=== PATIENT | male | born 1975 | race African-American/Black ===

== ENCOUNTER 2022-11-13 13:21 | Inpatient (IN) ==
[2022-11-13 14:32] LABS: Basophils # (auto) 0.05 K/uL (0-0.2); Basophils % (auto) 0.4 %; Eosinophils # (auto) 0.07 K/uL (0-0.50); Eosinophils % (auto) 0.5 %; Hematocrit (blood only) 38.5 % (42.0-52.0); Hemoglobin 13.2 g/dl (14.0-18.0); Immature Granulocytes # (auto) 0.19 K/uL (0.01-0.20); Immature Granulocytes % (auto) 1.5 %; Lymphocytes # (auto) 1.14 K/uL (1.2-3.4); Lymphocytes % (auto) 8.8 %; Mean Corpuscular Hgb Conc 34.3 g/dL (32.0-36.0); Mean Corpuscular Volume 90.4 fL (80.0-100.0); Mean Platelet Volume 9.8 fL (9.4-12.4); Monocytes # (auto) 0.78 K/uL (0.11-0.59); Neutrophils # (auto) 10.76 K/uL (1.40-6.50); Neutrophils % (auto) 82.8 %; Platelet Count 194 K/uL (130-400); RDW Standard Deviation 42.9 fL (36.4-46.3); Red Blood Count 4.26 M/uL (4.70-6.10); White Blood Count 12.99 K/ul (4.8-10.8)
[2022-11-13 14:46] LABS: Albumin Globulin Ratio 1.1 (0.9-2); Albumin Level 3.9 gm/dl (3.4-5.0); Bilirubin,Total 3.3 mg/dl (0.2-1.0); Calcium 8.6 mg/dl (8.6-10.3); Creatinine Clr Calc Pharmacy 75.3 ml/min; Est GFR (African American) 56.5 ml/min; Est GFR (Non-African American) 48.7 ml/min; Globulin 3.4 gm/dl (2.5-4.0); Potassium 3.2 mmol/L (3.5-5.1); Total Protein 7.3 gm/dl (6.0-8.3)
[2022-11-13] MEDS ORDERED: CEFEPIME 2,000 MG/20 ML VIAL IV STA (15:17)
[2022-11-13] MEDS ORDERED: SODIUM CHLORIDE 0.9% 1000ML 1,000 ML IV ONE ×2 (15:17→17:12)
--- NOTE | 2022-11-13 15:35 | Emergency Department Note ---
Impression & Plan Sepsis, Pneumonia, Rigors, Dysuria, Leukocytosis, Elevated liver enzymes, Hypomagnesemia ED Provider Note NAME: JANEE [id number] LINH AGE: 47 SEX: M : 1975 ARRIVES VIA: Ambulance INFORMANT: [Patient] ED PROVIDER(S): [Orion Barrientos MD] CHIEF COMPLAINT: Fever HISTORY OF PRESENT ILLNESS: The patient is a 47-year-old male who has had 3 or 5 days of weakness, fatigue, some dizziness. He has had some difficulty with his urination, some burning with urination, some occasional diarrhea. Today, he had a temperature of 102.5. He was given Tylenol and sent to the ED for evaluation. Patient states that he feels dizzy when he stands. His flanks are sore. No cough or congestion or respiratory complaints. He has not had any vomiting. No real abdominal pain. No history of previous UTI. PMHx/PSHx: See Below SOCIAL HISTORY: See Below. PHYSICAL EXAM: GENERAL: Patient is in no acute distress. HEENT: No acute trauma, normocephalic atraumatic, mucous membranes moist, no nasal congestion. NECK: No stridor, no adenopathy, no meningismus, trachea is midline. LUNGS: Occasional crackles heard at the right lower lung, no respiratory distress, no wheezing. HEART: Mildly tachycardic, regular rhythm, very subtle systolic murmur ABDOMEN: Soft, nontender, bowel sounds positive, no peritonitis. EXTREMITIES: No cyanosis or edema, full range of motion of all the joints without pain or difficulty, no signs for acute trauma. NEUROLOGIC: Oriented x 3, no acute motor or sensory deficits, no focal weakness. SKIN: No rash, no jaundice, no diaphoresis. Back: No real flank discomfort to percussion. DIFFERENTIAL DIAGNOSIS: Bacteremia or sepsis, hydronephrosis, UTI, pyelonephritis, urinary retention, renal failure, pneumonia, among others. EMERGENCY DEPARTMENT COURSE/PROCEDURES: Prior/Outside records reviewed: [facility] documentation. Critical Care Note: I have personally spent 43 minutes of critical care time in the direct management of this patient. This includes bedside care, interpretation of diagnostic studies, and testing, discussion with consultants, patient, and family members, and other required patient management activities. This 43 minutes is in excess of all separately billable procedures. MEDICAL DECISION MAKING: There is a mild leukocytosis, this would be consistent with infection. A very mild anemia was seen. There was a normal platelet count. Sodium and potassium were both slightly low. The creatinine was elevated at 1.63, this could be consistent with some dehydration or mild acute kidney injury. Lactic acid level was elevated consistent with infection and/or early sepsis. Magnesium level was low at 1.4. There were some liver enzyme elevations, the bilirubin was 3.3. Urinalysis showed contamination, no obvious infection. Lyme disease testing was negative. COVID test was negative. Chest film shows a right lower lung pne umonia per my review. Abdominal and pelvis CT shows the same right lower lung pneumonia. There was no urinary obstruction or acute surgical process per CT imaging. On exam, the patient was febrile, tachycardic. He developed rigors while here in the ED. The patient was aggressively managed given his presentation. He received IV saline for hydration, 2 L. He was given IV magnesium, oral ibuprofen, IV cefepime and IV Tylenol. I talked the patient about his findings, I discussed his findings with the guards. I did speak with case management, given his findings and presentation hospitalization is indicated. The on-call hospitalist was consulted. DISPOSITION: Patient's presentation and findings warrant a hospital stay. Past Med/Surg History Medical History Mood disorder Surgical History (Updated 11/13/22 @ 18:03 by TANYA Armendariz) No significant past surgical history Social History Smoking Status: Former smoker Preferred Language: Ecuadorean Feels Safe at Home: Yes Allergies Allergies Allergy/AdvReac Type Severity Reaction Status Date / Time No Known Allergies Allergy Unverified 11/13/22 17:27 Home Meds Home Medications Medication Instructions Recorded Confirmed acetaminophen 500 mg tablet 1,000 mg PO DAILY 11/13/22 11/13/22 (Tylenol Extra Strength) acetaminophen 500 mg tablet 1,000 mg PO TID PRN Pain 11/13/22 11/13/22 (Tylenol Extra Strength) ceftriaxone 1 gram solution for 2 g IM DAILY 11/13/22 11/13/22 injection levofloxacin 750 mg tablet 750 mg PO .DAILY DIRECTED 11/13/22 11/13/22 olanzapine 5 mg tablet 5 mg PO HS 11/13/22 11/13/22 sodium chloride 0.9 % 100 ml IV .HOUR 11/13/22 11/13/22 trazodone 100 mg tablet 100 mg PO HS 11/13/22 11/13/22 Results & Data (ED) Vital Signs Vital Signs - 24 hr 11/13/22 13:33 11/13/22 15:41 11/13/22 16:49 Temperature 37.5 C 39.5 C H Temperature Source Oral Oral Pulse Rate 108 H Pulse Rate [Apical] 104 H Respiratory Rate 20 18 Respiratory Effort / Characteristics Non-Labored Blood Pressure 126/74 Blood Pressure [Right Arm] 131/112 H Blood Pressure Mean 91 Blood Pressure Mean [Right Arm] 118 Pulse Oximetry 95 94 Oxygen Delivery Method Room Air Room Air Sepsis Recent Fever Within 48 Hours Yes Sepsis New/Unexplained Change in Mental Status N/A Sepsis Action Taken by Nursing No Action Required 11/13/22 17:15 11/13/22 17:35 11/13/22 17:52 Temperature 39.0 C H Temperature Source Oral Pulse Rate 112 H Pulse Rate [Apical] 116 H Respiratory Rate 24 Respiratory Effort / Characteristics Blood Pressure Blood Pressure [Right Arm] 130/106 H Blood Pressure Mean Blood Pressure Mean [Right Arm] 114 Pulse Oximetry 95 Oxygen Delivery Method Sepsis Recent Fever Within 48 Hours Sepsis New/Unexplained Change in Mental Status Sepsis Action Taken by Correction Medications Current Medication List: was personally reviewed by me Laboratory Data Attestation: I reviewed the patient's lab results. 11/13/22 14:11 11/13/22 14:11 Lab Results 11/13/22 11/13/22 11/13/22 Range/Units 14:11 14:11 14:12 WBC 12.99 H (4.8-10.8) K/ul RBC 4.26 L (4.70-6.10) M/uL Hgb 13.2 L (14.0-18.0) g/dl Hct 38.5 L (42.0-52.0) % MCV 90.4 (80.0-100.0) fL MCH 31.0 (25.0-34.0) pg MCHC 34.3 (32.0-36.0) g/dL RDW Std Deviation 42.9 (36.4-46.3) fL RDW Coeff of Sandeep 13.0 (11.5-14.5) % Plt Count 194 (130-400) K/uL MPV 9.8 (9.4-12.4) fL Immature Gran % (Auto) 1.5 % Neut % (Auto) 82.8 % Lymph % (Auto) 8.8 % [place] % (Auto) 6.0 % Eos % (Auto) 0.5 % Baso % (Auto) 0.4 % Neut # (Auto) 10.76 H (1.40-6.50) K/uL Lymph # (Auto) 1.14 L (1.2-3.4) K/uL [place] # (Auto) 0.78 H (0.11-0.59) K/uL Eos # (Auto) 0.07 (0-0.50) K/uL Baso # (Auto) 0.05 (0-0.2) K/uL Immature Gran # (Auto) 0.19 (0.01-0.20) K/uL Sodium 133 L (136-145) mmol/L Potassium 3.2 L (3.5-5.1) mmol/L Chloride 99 (98-107) mmol/L Carbon Dioxide 21 (21-32) mmol/L Anion Gap 13 H (3-11) BUN 18 (6-23) mg/dl Creatinine 1.63 H (0.6-1.4) mg/dl Est Cr Clr Drug Dosing 75.3 ml/min Est GFR ( Amer) 56.5 ml/min Est GFR (Non-Af Amer) 48.7 ml/min BUN/Creatinine Ratio 11.0 (10-20) Glucose 122 H (70-99(Fasting)) mg/dl Lactate (0.4-2.0) mmol/L Calcium 8.6 (8.6-10.3) mg/dl Magnesium 1.4 L (1.7-2.4) mg/dl Total Bilirubin 3.3 H (0.2-1.0) mg/dl AST 113 H (13-39) U/L ALT 99 H (7-52) U/L Alkaline Phosphatase 55 (34-104) U/L Total Protein 7.3 (6.0-8.3) gm/dl Albumin 3.9 (3.4-5.0) gm/dl Globulin 3.4 (2.5-4.0) gm/dl Albumin/Globulin Ratio 1.1 (0.9-2) Urine Color Urine Appearance (Clear) Urine pH (4.5-7.5) Ur Specific [place] (1.000-1.030) Urine Protein (Negative) Urine Glucose (UA) (Negative) Urine Ketones (Negative) Urine Blood (Negative) Urine Nitrite (Negative) Urine Bilirubin (Negative) Urine Urobilinogen (Negative) Ur Leukocyte Esterase (Negative) Urine WBC (Auto) (0-5) /hpf Urine RBC (Auto) (0-4) /hpf U Hyaline Cast (Auto) (0-5) /lpf U Epithel Cells (Auto) (0-5) /lpf Urine Bacteria (Auto) (Negative) Ur Renal Epithelial Cell (0-5) /lpf Granular Casts (0) /lpf Urine Yeast Lyme Disease IgG Ab Negative (Negative) Lyme Disease IgM Ab Negative (Negative) SARS-CoV-2, RNA, NAAT (NEGATIVE) 11/13/22 11/13/22 11/13/22 Range/Units 15:28 15:55 16:55 WBC (4.8-10.8) K/ul RBC (4.70-6.10) M/uL Hgb (14.0-18.0) g/dl Hct (42.0-52.0) % MCV (80.0-100.0) fL MCH (25.0-34.0) pg MCHC (32.0-36.0) g/dL RDW Std Deviation (36.4-46.3) fL RDW Coeff of Sandeep (11.5-14.5) % Plt Count (130-400) K/uL MPV (9.4-12.4) fL Immature Gran % (Auto) % Neut % (Auto) % Lymph % (Auto) % [place] % (Auto) % Eos % (Auto) % Baso % (Auto) % Neut # (Auto) (1.40-6.50) K/uL Lymph # (Auto) (1.2-3.4) K/uL [place] # (Auto) (0.11-0.59) K/uL Eos # (Auto) (0-0.50) K/uL Baso # (Auto) (0-0.2) K/uL Immature Gran # (Auto) (0.01-0.20) K/uL Sodium (136-145) mmol/L Potassium (3.5-5.1) mmol/L Chloride (98-107) mmol/L Carbon Dioxide (21-32) mmol/L Anion Gap (3-11) BUN (6-23) mg/dl Creatinine (0.6-1.4) mg/dl Est Cr Clr Drug Dosing ml/min Est GFR ( Amer) ml/min Est GFR (Non-Af Amer) ml/min BUN/Creatinine Ratio (10-20) Glucose (70-99(Fasting)) mg/dl Lactate 2.3 H* (0.4-2.0) mmol/L Calcium (8.6-10.3) mg/dl Magnesium (1.7-2.4) mg/dl Total Bilirubin (0.2-1.0) mg/dl AST (13-39) U/L ALT (7-52) U/L Alkaline Phosphatase (34-104) U/L Total Protein (6.0-8.3) gm/dl Albumin (3.4-5.0) gm/dl Globulin (2.5-4.0) gm/dl Albumin/Globulin Ratio (0.9-2) Urine Color [place] Urine Appearance Cloudy A (Clear) Urine pH 5.5 (4.5-7.5) Ur Specific [place] 1.030 (1.000-1.030) Urine Protein 2+ H (Negative) Urine Glucose (UA) Negative (Negative) Urine Ketones 1+ H (Negative) Urine Blood 3+ H (Negative) Urine Nitrite Positive A (Negative) Urine Bilirubin 2+ H (Negative) Urine Urobilinogen Negative (Negative) Ur Leukocyte Esterase Trace H (Negative) Urine WBC (Auto) 5-10 H (0-5) /hpf Urine RBC (Auto) 0-4 (0-4) /hpf U Hyaline Cast (Auto) 1-5 (0-5) /lpf U Epithel Cells (Auto) >30 H (0-5) /lpf Urine Bacteria (Auto) Negative (Negative) Ur Renal Epithelial Cell 0-5 (0-5) /lpf Granular Casts 1-5 H (0) /lpf Urine Yeast Not Reportable Lyme Disease IgG Ab (Negative) Lyme Disease IgM Ab (Negative) SARS-CoV-2, RNA, NAAT NEGATIVE (NEGATIVE) Administered Medications Magnesium Sulfate/Dextrose (Magnesium Sulfate / D5w) 1 gm in 100 mls @ 100 mls/hr IV Q1H LARA Stop: 11/13/22 18:09 Last Admin: 11/13/22 17:46 Dose: 100 mls/hr Documented By: Infusion: 11/13/22 17:46 Dose: 100 mls/hr Documented By: Admin: 11/13/22 16:46 Dose: 100 mls/hr Documented By: ANDRES Sodium Chloride (Nss 1000ml) 1,000 mls @ 999 mls/hr IV .Q1H1M ONE Stop: 11/13/22 18:12 Last Admin: 11/13/22 17:46 Dose: 999 mls/hr Documented By: ANDRES Discontinued Medications Sodium Chloride (Nss 1000ml) 1,000 mls @ 999 mls/hr IV .Q1H1M ONE Stop: 11/13/22 16:17 Last Admin: 11/13/22 15:39 Dose: 999 mls/hr Documented By: MOUSTAPHA Cefepime HCl (Maxipime) 2,000 mg in 20 mls @ 5 mls/min IV NOW STA; Protocol Stop: 11/13/22 15:20 Last Admin: 11/13/22 16:22 Dose: 5 mls/min Documented By: ANDRES Acetaminophen (Ofirmev) 1,000 mg in 100 mls @ 400 mls/hr IV NOW STA Stop: 11/13/22 17:30 Last Admin: 11/13/22 17:46 Dose: 400 mls/hr Documented By: ANDRES Ibuprofen (Ibuprofen 800 Mg Tab) 800 mg PO NOW STA Stop: 11/13/22 16:51 Last Admin: 11/13/22 17:11 Dose: 800 mg Documented By: ANDRES Potassium Chloride (Potassium Chloride Crtab 20 Meq Tabcr) 40 meq PO NOW STA Stop: 11/13/22 17:32 Last Admin: 11/13/22 17:46 Dose: 40 meq Documented By: ANDRES Imaging Data Radiologist's Impression: Abdomen/Pelvis CT 11/13/22 15:17 CT SCAN OF THE ABDOMEN AND PELVIS WITHOUT IV CONTRAST CLINICAL HISTORY: Back pain. COMPARISON STUDY: No priors. TECHNIQUE: CT scan of the abdomen and pelvis is performed from the lung bases to the proximal femora. Images are reviewed in the axial, sagittal, and coronal planes. IV contrast was not administered for this examination. A dose lowering technique was utilized adhering to the principles of ALARA. CT DOSE: 729.68 mGy.cm FINDINGS: Lung bases: The heart is normal in size noting trace pericardial effusion. Right lower lobe consolidation is typical for pneumonia. The left lung base is clear. No pleural effusion is identified. Liver: The unenhanced liver is normal in size, contour, and attenuation. There is no intrahepatic biliary ductal dilatation. Gallbladder: Unremarkable. Spleen: Normal in size and attenuation. Pancreas: Unremarkable. Adrenal glands: Unremarkable. Kidneys: The unenhanced kidneys are normal in size and without hydronephrosis. No renal calculi are identified and no ureteral stone is seen. There is no evidence of contour deforming renal mass lesion. Abdominal vasculature: The abdominal aorta is normal in course and caliber. Bowel: There is no bowel obstruction. The appendix is well-visualized and normal. Peritoneum: There is no intraperitoneal free air or abdominal ascites. There is a fat-containing umbilical hernia. Lymphadenopathy: None. Pelvic viscera: The bladder, prostate, and seminal vesicles are normal as visualized. Skeletal structures: No lytic or blastic lesions are seen. 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 IMPRESSION: 1. No acute infectious or inflammatory findings are identified in the abdomen or pelvis. 2. Right basilar consolidation is typical for pneumonia. Clinical correlation will be required and radiographic follow-up to resolution is recommended 3. Avascular necrosis of the femoral heads. 4. Additional findings as above. ACT 112: Negative or not required by law. Electronically signed by: Orion Perez M.D. 11/13/2022 5:09 PM Chest X-Ray 11/13/22 15:35 SINGLE VIEW CHEST CLINICAL HISTORY: Fever. FINDINGS: An AP, portable, upright chest radiograph is obtained. No prior studies are available for comparison at the time of dictation. The examination is degraded by portable technique and apical lordotic positioning. The cardiomediastinal silhouette is unremarkable. There are right basilar opacities. The left lung appears clear. No large pleural effusion or Pneumothorax is seen. The bony thorax is grossly intact. IMPRESSION: Right basilar opacities could represent atelectasis versus a mild pneumonitis. Clinical correlation will be required. Radiographic follow-up to resolution is recommended. ACT 112: Negative or not required by law. Electronically signed by: Orion Perez M.D. 11/13/2022 4:12 PM Discharge Plan Visit Data Chief Complaint: Fever Stated Complaint: FEVER, DIZZINESS, ED Provider: Orion Barrientos Discharge Problem: Sepsis, Pneumonia, Rigors, Dysuria, Leukocytosis, Elevated liver enzymes, Hypomagnesemia Patient Disposition: Admitted As Inpatient Condition: Fair Forms Stand Alone Forms: [facility] Prescriptions Prescriptions: No Action olanzapine 5 mg Tablet 5 mg PO HS acetaminophen [Tylenol Extra Strength] 500 mg Tablet 1,000 mg PO TID PRN (Reason: Pain) acetaminophen [Tylenol Extra Strength] 500 mg Tablet 1,000 mg PO DAILY ceftriaxone 1 gram Recon Soln 2 g IM DAILY Rx Instructions: Stop date 11/14/2022 sodium chloride 0.9 % [Normal Saline] Solution 100 ml IV .HOUR Rx Instructions: 0.9% NSS Soln, 1,000 ml daily. Stop date 11/14/2022 trazodone 100 mg Tablet 100 mg PO HS levofloxacin 750 mg Tablet 750 mg PO .DAILY DIRECTED Rx Instructions: Start 11/14/2022, End 11/18/2022 Referrals Referrals: [facility] [Primary Care Provider] -
[2022-11-13 15:43] LABS: Magnesium 1.4 mg/dl (1.7-2.4)
[2022-11-13 16:13] LABS: Lyme Ab IgG w/WB Rflx Negative (Negative); Lyme Ab IgM w/WB Rflx Negative (Negative)
--- NOTE | 2022-11-13 16:13 | XRay Report ---
SINGLE VIEW CHEST CLINICAL HISTORY: Fever. FINDINGS: An AP, portable, upright chest radiograph is obtained. No prior studies are available for c omparison at the time of dictation. The examination is degraded by portable technique and apical lord otic positioning. The cardiomediastinal silhouette is unremarkable. There are right basilar opacities . The left lung appears clear. No large pleural effusion or Pneumothorax is seen. The bony thorax is grossly intact. IMPRESSION: Right basilar opacities could represent atelectasis versus a mild pneumonitis. Clinical c orrelation will be required. Radiographic follow-up to resolution is recommended. ACT 112: Negative or not required by law. Electronically signed by: Orion Perez M.D. 11/13/2022 4:12 PM
[2022-11-13] MEDS: MAGNESIUM SULFATE / D5W 1 GM/100 ML BAG IV SCH ×2 (16:46→17:46)
[2022-11-13] MEDS ORDERED: IBUPROFEN 800 MG TAB PO STA (16:50)
--- NOTE | 2022-11-13 17:11 | CT Scan Report ---
CT SCAN OF THE ABDOMEN AND PELVIS WITHOUT IV CONTRAST CLINICAL HISTORY: Back pain. COMPARISON STUDY: No priors. TECHNIQUE: CT scan of the abdomen and pelvis is performed from the lung bases to the proximal femora. Images are reviewed in the axial, sagittal, and coronal planes. IV contrast was not administered for this examination. A dose lowering technique was utilized adhering to the principles of ALARA. CT DOSE: 729.68 mGy.cm FINDINGS: Lung bases: The heart is normal in size noting trace pericardial effusion. Right lower lobe consolida tion is typical for pneumonia. The left lung base is clear. No pleural effusion is identified. Liver: The unenhanced liver is normal in size, contour, and attenuation. There is no intrahepatic leana iary ductal dilatation. Gallbladder: Unremarkable. Spleen: Normal in size and attenuation. Pancreas: Unremarkable. Adrenal glands: Unremarkable. Kidneys: The unenhanced kidneys are normal in size and without hydronephrosis. No renal calculi are i dentified and no ureteral stone is seen. There is no evidence of contour deforming renal mass lesion. Abdominal vasculature: The abdominal aorta is normal in course and caliber. Bowel: There is no bowel obstruction. The appendix is well-visualized and normal. Peritoneum: There is no intraperitoneal free air or abdominal ascites. There is a fat-containing umbi lical hernia. Lymphadenopathy: None. Pelvic viscera: The bladder, prostate, and seminal vesicles are normal as visualized. Skeletal structures: No lytic or blastic lesions are seen. 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 IMPRESSION: 1. No acute infectious or inflammatory findings are identified in the abdomen or pelvis. 2. Right basilar consolidation is typical for pneumonia. Clinical correlation will be required and ra diographic follow-up to resolution is recommended 3. Avascular necrosis of the femoral heads. 4. Additional findings as above. ACT 112: Negative or not required by law. Electronically signed by: Orion Perez M.D. 11/13/2022 5:09 PM
[2022-11-13] MEDS ORDERED: ACETAMINOPHEN 1,000 MG/100 ML VIAL IV STA (17:16)
[2022-11-13 17:21] LABS: Appearance Urine Cloudy (Clear); Bacteria Urine Automated Negative (Negative); Blood Urine 3+ (Negative); Color Urine Orange; Epithelial Cell Urine Auto >30 /lpf (0-5); Glucose Urine UA Negative (Negative); Ketones Urine 1+ (Negative); Leukocyte Esterase Urine Trace (Negative); Nitrite Urine Positive (Negative); Protein Urine 2+ (Negative); Urobilinogen Urine Negative (Negative); pH Urine 5.5 (4.5-7.5)
[2022-11-13 17:30] LABS: Bilirubin Urine 2+ (Negative)
[2022-11-13] MEDS ORDERED: POTASSIUM CHLORIDE CRTAB 20 MEQ TABCR PO STA (17:31)
[2022-11-13 17:41] LABS: RBC Urine Automated 0-4 /hpf (0-4)
[2022-11-13 17:43] LABS: Renal Epithelial Cells Urine 0-5 /lpf (0-5)
--- NOTE | 2022-11-13 18:04 | History & Physical Report ---
Date of Service November 13, 2022 Assessment & Plan (1) Severe sepsis: (2) UTI (urinary tract infection): (3) Pneumonia: Plan: Admit to telemetry Patient presenting from [facility] for evaluation of fever, urinary symptoms, weakness, dizziness. In the ED, febrile 39.5, tachycardic 110's, WBC 12.9 K, lactate 2.3. BP stable. CT ABD/pelvis negative for acute abdominal findings however noted right basilar consolidation -- ?? Aspiration due to vomiting UA suggest possible UTI S/p cefepime in the ED, will continue with IV Zosyn to provide anaerobic coverage for possible aspiration and will add doxycycline for atypical coverage Check MRSA nasal swab and if positive will add Vanco Trend lactate Follow blood, urine, sputum cultures Urine for Legionella Pulmonary toilet with nebs, Mucinex, incentive spirometer, flutter valve (4) Elevated LFTs: Plan: T. bili 3.3, AST 113, ALT 99, alk phos 55 Patient denies history of liver disease ?? Shock liver due to sepsis Check hepatitis panel Continue to trend, if not improving consider RUQ US (5) MARTÍN (acute kidney injury): Plan: Creatinine 1.6, unknown baseline however patient denies history of kidney disease Likely MARTÍN due to sepsis IVF, follow renal functions (6) Acute electrocardiogram changes: Plan: EKG shows T wave inversion in the lateral leads No reports of chest pain May be due to electrolyte abnormality and/or tachycardia Check troponin (7) Hypokalemia: (8) Hypomagnesemia: Plan: K+ 3.2, Mg +1.4 Replace, follow electrolytes (9) Diarrhea: Plan: Check stool studies (10) Mood disorder: Plan: Continue olanzapine and trazodone DVT PROPHYLAXIS SCDs Patient seen in collaboration with Dr. Danni Cruz spent a total of 75 minutes coordinating, documenting, and providing care for this patient excluding time spent in the performance of separately billed services. This included personally reviewing all current laboratories and imaging studies, medication reconciliation, outpatient chart review, and discussion with specialists. History of Present Illness Chief Complaint: Fever, weakness, urinary symptoms Primary Care Provider: [facility] History obtained from patient and review of records sent from [facility]. 47-year-old male inmate from [facility] with PMH mood disorder and other problems listed below who presents to the ED for evaluation of fever, weakness, urinary symptoms. Patient reports he started to get sick about 3 days ago. He reports urinary frequency and urgency, nausea with 2 episodes of vomiting, diarrhea, dry mouth, lightheadedness, dizziness. Patient also reports chills and rigors. [facility] was referred to the ED for further evaluation. Patient denies cough and sputum production. No chest pain or shortness of breath. In the ED, patient was febrile 39.5, tachycardic, WBC 12.9 K, lactate 2.3. BP stable. UA suggestive of possible UTI. CT ABD/pelvis unremarkable for acute abdominal findings however does note right basilar consolidation. Patient was given IV Tylenol, IV cefepime, ibuprofen, magnesium replacement, IVF. Allergies Allergy/AdvReac Type Severity Reaction Status Date / Time No Known Allergies Allergy Unverified 11/13/22 17:27 Home Medications Medication Instructions Recorded Confirmed Type olanzapine 5 mg tablet 5 mg PO HS 11/13/22 11/13/22 History trazodone 100 mg tablet 100 mg PO HS 11/13/22 11/13/22 History Past Med/Surg History Medical History Mood disorder Surgical History No significant past surgical history Family History (Updated 11/13/22 @ 18:18 by TANYA Armendariz) Father Diabetes Social History Smoking Status: Former smoker Hx Alcohol Use: No Hx Substance Use: No Preferred Language: Spanish Communication Ability: Effective 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 Beliefs That Will Affect Care: None Current Living Situation: Other Current Living Situation Comment: [facility] Feels Safe at Home: Yes Safety Concerns: Feels Safe At This Time Assistive Devices: None Review of Systems Review of Systems: ROS per HPI, all other systems reviewed and negative Physical Exam Constitutional: WD/WN, vitals as above + ill appearing; no acute distress Eyes: PERRL, conjunctivae normal, anicteric sclerae ENMT: external ear and nose normal, oropharynx normal Respiratory: normal respiratory effort; no respiratory distress Auscultation: + rales (Right base) Cardiovascular: Rate/Rhythm: regular rhythm and + tachycardic Vessels: normal peripheral pulses Extremities: no edema Gastrointestinal (Abdomen): Inspection/Auscultation: + abdomen distended and normal bowel sounds Percussion/Palpation: abdomen soft; abdomen nontender and no hepatosplenomegaly Musculoskeletal: no cyanosis or clubbing, extremities motor strength 5/5 Skin: no rashes, warm and dry Neurologic: PERRL, EOMI, accommodation nl, no face palsy, no dysarthria Psychiatric: A+Ox3, euthymic affect Results & Data Results & Data Vital Signs (Past 12 Hours) Vital Signs Temp Pulse Pulse Resp BP BP Pulse Ox 11/13/22 17:52 39.0 C H 11/13/22 17:35 112 H 11/13/22 17:15 116 H 24 130/106 H 95 11/13/22 16:49 39.5 C H 11/13/22 15:41 104 H 18 131/112 H 94 11/13/22 13:33 37.5 C 108 H 20 126/74 95 O2 Del Method 11/13/22 17:52 11/13/22 17:35 11/13/22 17:15 11/13/22 16:49 11/13/22 15:41 Room Air 11/13/22 13:33 Room Air Laboratory Results Short CBC 11/13/22 Range/Units 14:11 WBC 12.99 H (4.8-10.8) K/ul Hgb 13.2 L (14.0-18.0) g/dl Hct 38.5 L (42.0-52.0) % Plt Count 194 (130-400) K/uL BMP 11/13/22 14:11 Sodium 133 L Potassium 3.2 L Chloride 99 Carbon Dioxide 21 BUN 18 Creatinine 1.63 H Glucose 122 H Calcium 8.6 Liver Function 11/13/22 Range/Units 14:11 Total Bilirubin 3.3 H (0.2-1.0) mg/dl AST 113 H (13-39) U/L ALT 99 H (7-52) U/L Alkaline Phosphatase 55 (34-104) U/L Albumin 3.9 (3.4-5.0) gm/dl Urine 11/13/22 Range/Units 16:55 Urine Color [place] Urine Appearance Cloudy A (Clear) Urine pH 5.5 (4.5-7.5) Ur Specific [place] 1.030 (1.000-1.030) Urine Protein 2+ H (Negative) Urine Glucose (UA) Negative (Negative) Diagnostic Findings Abdomen/Pelvis CT 11/13/22 15:17 CT SCAN OF THE ABDOMEN AND PELVIS WITHOUT IV CONTRAST CLINICAL HISTORY: Back pain. COMPARISON STUDY: No priors. TECHNIQUE: CT scan of the abdomen and pelvis is performed from the lung bases to the proximal femora. Images are reviewed in the axial, sagittal, and coronal planes. IV contrast was not administered for this examination. A dose lowering technique was utilized adhering to the principles of ALARA. CT DOSE: 729.68 mGy.cm FINDINGS: Lung bases: The heart is normal in size noting trace pericardial effusion. Right lower lobe consolidation is typical for pneumonia. The left lung base is clear. No pleural effusion is identified. Liver: The unenhanced liver is normal in size, contour, and attenuation. There is no intrahepatic biliary ductal dilatation. Gallbladder: Unremarkable. Spleen: Normal in size and attenuation. Pancreas: Unremarkable. Adrenal glands: Unremarkable. Kidneys: The unenhanced kidneys are normal in size and without hydronephrosis. No renal calculi are identified and no ureteral stone is seen. There is no evidence of contour deforming renal mass lesion. Abdominal vasculature: The abdominal aorta is normal in course and caliber. Bowel: There is no bowel obstruction. The appendix is well-visualized and normal. Peritoneum: There is no intraperitoneal free air or abdominal ascites. There is a fat-containing umbilical hernia. Lymphadenopathy: None. Pelvic viscera: The bladder, prostate, and seminal vesicles are normal as visualized. Skeletal structures: No lytic or blastic lesions are seen. 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 IMPRESSION: 1. No acute infectious or inflammatory findings are identified in the abdomen or pelvis. 2. Right basilar consolidation is typical for pneumonia. Clinical correlation will be required and radiographic follow-up to resolution is recommended 3. Avascular necrosis of the femoral heads. 4. Additional findings as above. ACT 112: Negative or not required by law. Electronically signed by: Orion Perez M.D. 11/13/2022 5:09 PM Chest X-Ray 11/13/22 15:35 SINGLE VIEW CHEST CLINICAL HISTORY: Fever. FINDINGS: An AP, portable, upright chest radiograph is obtained. No prior studies are available for comparison at the time of dictation. The examination is degraded by portable technique and apical lordotic positioning. The cardiomediastinal silhouette is unremarkable. There are right basilar opacities. The left lung appears clear. No large pleural effusion or Pneumothorax is seen. The bony thorax is grossly intact. IMPRESSION: Right basilar opacities could represent atelectasis versus a mild pneumonitis. Clinical correlation will be required. Radiographic follow-up to resolution is recommended. ACT 112: Negative or not required by law. Electronically signed by: Orion Perez M.D. 11/13/2022 4:12 PM Code Status & VTE Plan Code Status Patient is a full code as per my discussion with him. VTE Prophylaxis Plan VTE Prophylaxis will be ordered: Yes Supervising Physician Co-Signing Physician Notes Pt seen and examined by me, care coordinated w/ L. TANYA Yeh, pls refer to her note above for further detail. 47 yo M (inmate from [facility]) with hx of mood disorder who presents for evaluation of fever, weakness. Patient reports he started to get sick about 3 days ago when he had nausea, vomiting and diarrhea. [facility] was [facility] to the ED for further evaluation. Patient denies cough and sputum production. No chest pain or shortness of breath. In the ED, patient was febrile 39.5 C, tachycardic, WBC 12.9 K, lactate 2.3. BP stable. CT ABD/pelvis unremarkable for acute abdominal findings however does note right basilar consolidation. Patient was given IV Tylenol, IV cefepime, ibuprofen, magnesium replacement, IVF. Patient is currently laying in bed, in no acute distress, however ill-appearing. Blood pressure is good, however patient is febrile, and tachycardic. Denies any pain or discomfort. Denies any cough. Continues to have a poor appetite, and diarrhea. He says he did not eat or drink anything today. However denies any abdominal pain. He is awake alert oriented answering appropriately. Lungs are fairly clear, some rhonchi at right base. Tachycardic. Abdomen obese soft, nontender to palpation, positive bowel sounds. No lower extremity edema. No rash. Skin is warm and dry. Blood cultures ordered. Urine pending. Sputum culture also ordered. Bio fire ordered. Stool PCR ordered. Legionella antigen ordered. Started on IV broad- spectrum antibiotics in ED. IV fluids also started in ED. We will continue with IV Zosyn and azithromycin. Continue IV fluids. Imaging concerning for right lower lobe pneumonia. Guaifenesin, flutter valve, spirometer ordered. Patient is currently breathing on room air, comfortably. Continue to closely monitor. MD Danni
[2022-11-13] MEDS ORDERED: ONDANSETRON INJ 2 MG/ML 2 ML VIAL IV PRN (19:27)
[2022-11-13] MEDS ORDERED: ALBUT/IPRATROP 3MG/0.5MG NEB 3 ML VIAL NEB PRN (19:27)
[2022-11-13] MEDS ORDERED: ACETAMINOPHEN 325 MG TAB PO PRN (19:27)
[2022-11-13 19:34] LABS: Troponin I High Sensitivity 52.9 pg/ml (0-20)
[2022-11-13] MEDS ORDERED: PIPERACILLIN/TAZOBACTAM 4.5 GM (over 30 mins) IV ONE (19:45)
[2022-11-13] MEDS: SODIUM CHLORIDE 0.9% 1000ML 1,000 ML IV SCH (19:50)
[2022-11-13] MEDS: guaiFENesin 600 MG TABCR PO SCH (20:33)
[2022-11-13] MEDS: OLANZapine 5 MG TABLET PO SCH (20:33)
[2022-11-13] MEDS: traZODone HCL 100 MG TAB PO SCH (20:33)
[2022-11-13] MEDS: AZITHROMYCIN 500 MG in DEXTROSE 5% 250 ML IV SCH (21:13)
[2022-11-14] MEDS: PIPERACILLIN/TAZOBACTAM 4.5 GM in DEXTROSE 5% 100 ML IV SCH ×3 (02:51→17:53)
[2022-11-14 06:28] LABS: Hematocrit (blood only) 40.1 % (42.0-52.0); Hemoglobin 13.6 g/dl (14.0-18.0); Mean Corpuscular Hemoglobin 31.1 pg (25.0-34.0); Mean Corpuscular Hgb Conc 33.9 g/dL (32.0-36.0); Mean Corpuscular Volume 91.8 fL (80.0-100.0); Nucleated RBC # (auto) 0.02 K/uL (0-0.12); Nucleated RBC % (auto) 0.2 %; Platelet Count 170 K/uL (130-400); RDW Coefficient of Variation 13.3 % (11.5-14.5); RDW Standard Deviation 45.5 fL (36.4-46.3); Red Blood Count 4.37 M/uL (4.70-6.10); White Blood Count 8.37 K/ul (4.8-10.8)
[2022-11-14 06:55] LABS: Basophils # (auto) 0.07 K/uL (0-0.2); Basophils % (auto) 0.8 %; Echinocytes 1+; Immature Granulocytes # (auto) 0.21 K/uL (0.01-0.20); Immature Granulocytes % (auto) 2.5 %; Lymphocytes # (auto) 0.38 K/uL (1.2-3.4); Lymphocytes % (auto) 4.5 %; Monocytes # (auto) 0.33 K/uL (0.11-0.59); Monocytes % (auto) 3.9 %; Neutrophils # (auto) 7.38 K/uL (1.40-6.50); Neutrophils % (auto) 88.3 %; Polychromasia 1+; Toxic Vacuolation 3+
[2022-11-14 08:02] LABS: Albumin Globulin Ratio 1.1 (0.9-2); Albumin Level 3.4 gm/dl (3.4-5.0); BUN Creatinine Ratio 10.3 (10-20); Bilirubin,Total 3.5 mg/dl (0.2-1.0); Calcium 7.6 mg/dl (8.6-10.3); Creatinine Clr Calc Pharmacy 79.8 ml/min; Est GFR (Non-African American) 51.8 ml/min; Globulin 3.1 gm/dl (2.5-4.0); Magnesium 2.2 mg/dl (1.7-2.4); Phosphorus 1.6 mg/dl (2.5-4.9); Potassium 4.1 mmol/L (3.5-5.1); Total Protein 6.5 gm/dl (6.0-8.3)
[2022-11-14] MEDS: SODIUM CHLORIDE 0.9% 1000ML 1,000 ML IV SCH (08:09)
[2022-11-14] MEDS: guaiFENesin 600 MG TABCR PO SCH ×2 (08:09→20:33)
[2022-11-14] MEDS: AZITHROMYCIN 500 MG in DEXTROSE 5% 250 ML IV SCH (08:12)
[2022-11-14 09:08] LABS: Troponin I High Sensitivity 33.1 pg/ml (0-20)
[2022-11-14] MEDS ORDERED: IBUPROFEN 200 MG TAB PO STA ×2 (12:34→17:00)
[2022-11-14 14:11] LABS: Adenovirus PCR Not Detected (NotDetected); Bordetella parapertussis PCR Not Detected (NotDetected); Bordetella pertussis PCR Not Detected (NotDetected); Chlamydia pneumoniae PCR Not Detected (NotDetected); Coronavirus 229E PCR Not Detected (NotDetected); Coronavirus CoV-2 (COVID19)PCR Not Detected (NotDetected); Coronavirus HKU1 PCR Not Detected (NotDetected); Coronavirus NL63 PCR Not Detected (NotDetected); Coronavirus OC43PCR Not Detected (NotDetected); Human Metapneumovirus PCR Not Detected (NotDetected); Influenza A PCR Not Detected (NotDetected); Influenza B PCR Not Detected (NotDetected); Mycoplasma pneumoniae PCR Not Detected (NotDetected); Parainfluenza Virus 1 PCR Not Detected (NotDetected); Parainfluenza Virus 2 PCR Not Detected (NotDetected); Parainfluenza Virus 3 PCR Not Detected (NotDetected); Parainfluenza Virus 4 PCR Not Detected (NotDetected); Respiratory Syncytial VirusPCR Not Detected (NotDetected); Rhinovirus/Enterovirus PCR Not Detected (NotDetected)
[2022-11-14] MEDS ORDERED: ACETAMINOPHEN 325 MG TAB PO ONE (14:49)
--- NOTE | 2022-11-14 15:28 | Hospitalist Progress Note ---
Date of Service November 14, 2022 Assessment & Plan (1) Severe sepsis: (2) UTI (urinary tract infection): (3) Pneumonia: Plan: Patient presenting from [facility] for evaluation of fever, weakness, nausea/vomit., diarrhea In the ED, febrile 39.5 C, tachycardic 110's, WBC 12.9 K, lactate 2.3. BP normal. CT ABD/pelvis negative for acute abdominal findings however noted right basilar consolidation Blood cultx, urine cultx, sputum cultx - ordered Blood cultx - negat. so far Resp. biofire negative Legionella Ag - pending Stool PCR - ordered/uncollected Received cefepime in the ED, now cont. with IV Zosyn + Azithromycin MRSA nasal swab - negative lactate trended down Follow blood, urine, sputum cultures Pulmonary toilet with nebs, Mucinex, incentive spirometer, flutter valve (4) Elevated LFTs: Plan: T. bili 3.3, AST 113, ALT 99, alk phos 55 Patient denies history of liver disease - likely secondary to sepsis - hepatitis panel - pending CT abd./pelvis negative for intraabd.pathology - will obtain RUQ US - will further discuss w/ GI (5) MARTÍN (acute kidney injury): Plan: Creatinine 1.6, unknown baseline however patient denies history of kidney disease Likely MARTÍN due to sepsis IVF, follow renal functions (6) Acute electrocardiogram changes: Plan: EKG shows T wave inversion in the lateral leads No reports of chest pain on admission May be due to electrolyte abnormality and/or tachycardia troponin obtained 54 -> 35 (likely secondary to sepsis, tachycardia) -monitor closely on telemetry (7) Hypokalemia: (8) Hypomagnesemia: Plan: K+ 3.2, Mg +1.4 Replete, and monitor (9) Diarrhea: Plan: Check stool studies, as above (10) Mood disorder: Plan: Continue olanzapine and trazodone DVT ppx- heparin subq Admission and Anticipated Discharge Date Admission Date: November 13, 2022 Subjective Pt seen in follow up of sepsis, fever, pna Laying in bed, in no acute distress, ill-appearing Yesterday on admission denied any cough, now says that has frequent cough, and also chest discomfort from frequent coughing He has been using flutter valve Continues to have diarrhea, however sample not obtained yet Denies abdominal pain. However does not wish to advance his diet, feels that he would not be able to tolerate more than liquids. Continues to be febrile, and feeling weak. Continues to be tachycardic. Review of Systems Review of Systems: All systems reviewed & are unremarkable except as noted in Subjective Physical Exam Physical Exam: Constitutional:L WD/WN, in no acute distress Eyes: PERRL, EOMI conjun ctivae normal, ani cteric sclerae ENMT: external ear and n ose normal, oropha rynx normal Respiratory: normal respiratory effort; no respir atory distress Au scultation: + rhon chi (Right base) Cardiovascular:L + tachycardic Ves sels: normal perip heral pulses Extr emities: no edema Gastrointestinal ( Abdomen): + abdomen distend ed and normal sukhi l sounds, soft; a bdomen nontender Musculoskeletal: moves extremities Skin: no rashes, warm an d dry Neurologic: PERRL, EOMI, no fa ce palsy, no dysar thria, moves extre mities Psychiatric: A+Ox3, euthymic af fect Results & Data Results & Data Vital Signs (Past 12 Hours) Vital Signs Temp Pulse Pulse Resp BP Pulse Ox O2 Del Method 11/14/22 15:06 39.0 C H 108 H 20 102/60 93 Room Air 11/14/22 12:00 39.4 C H 128 H 20 113/70 94 Room Air 11/14/22 11:51 90 11/14/22 11:51 Room Air 11/14/22 08:24 39.2 C H 111 H 18 121/72 92 Room Air 11/14/22 04:24 37.2 C 82 20 125/77 95 Room Air Laboratory Results 11/14/22 11/14/22 11/14/22 Range/Units 12:52 12:52 05:57 WBC (4.8-10.8) K/ul RBC (4.70-6.10) M/uL Hgb (14.0-18.0) g/dl Hct (42.0-52.0) % MCV (80.0-100.0) fL MCH (25.0-34.0) pg MCHC (32.0-36.0) g/dL RDW Std Deviation (36.4-46.3) fL RDW Coeff of Sandeep (11.5-14.5) % Plt Count (130-400) K/uL MPV (9.4-12.4) fL Immature Gran % (Auto) % Neut % (Auto) % Lymph % (Auto) % Ada % (Auto) % Eos % (Auto) % Baso % (Auto) % Neut # (Auto) (1.40-6.50) K/uL Lymph # (Auto) (1.2-3.4) K/uL Ada # (Auto) (0.11-0.59) K/uL Eos # (Auto) (0-0.50) K/uL Baso # (Auto) (0-0.2) K/uL Immature Gran # (Auto) (0.01-0.20) K/uL Absolute Nucleated RBC (0-0.12) K/uL Nucleated RBC % (auto) % Toxic Vacuolation Polychromasia Echinocytes Sodium 136 (136-145) mmol/L Potassium 4.1 D (3.5-5.1) mmol/L Chloride 104 (98-107) mmol/L Carbon Dioxide 23 (21-32) mmol/L Anion Gap 9 (3-11) BUN 16 (6-23) mg/dl Creatinine 1.55 H (0.6-1.4) mg/dl Est Cr Clr Drug Dosing 79.8 ml/min Est GFR ( Amer) 60.0 ml/min Est GFR (Non-Af Amer) 51.8 ml/min BUN/Creatinine Ratio 10.3 (10-20) Glucose 102 H (70-99(Fasting)) mg/dl Lactate (0.4-2.0) mmol/L Calcium 7.6 L (8.6-10.3) mg/dl Phosphorus 1.6 L (2.5-4.9) mg/dl Magnesium 2.2 (1.7-2.4) mg/dl Total Bilirubin 3.5 H (0.2-1.0) mg/dl AST 67 H (13-39) U/L ALT 70 H (7-52) U/L Alkaline Phosphatase 53 (34-104) U/L Troponin I High Sens 35.4 H 33.1 H D (0-20) pg/ml Total Protein 6.5 (6.0-8.3) gm/dl Albumin 3.4 (3.4-5.0) gm/dl Globulin 3.1 (2.5-4.0) gm/dl Albumin/Globulin Ratio 1.1 (0.9-2) Urine Color Urine Appearance (Clear) Urine pH (4.5-7.5) Ur Specific [place] (1.000-1.030) Urine Protein (Negative) Urine Glucose (UA) (Negative) Urine Ketones (Negative) Urine Blood (Negative) Urine Nitrite (Negative) Urine Bilirubin (Negative) Urine Urobilinogen (Negative) Ur Leukocyte Esterase (Negative) Urine WBC (Auto) (0-5) /hpf Urine RBC (Auto) (0-4) /hpf U Hyaline Cast (Auto) (0-5) /lpf U Epithel Cells (Auto) (0-5) /lpf Urine Bacteria (Auto) (Negative) Ur Renal Epithelial Cell (0-5) /lpf Granular Casts (0) /lpf Urine Yeast Nasal Screen MRSA (PCR) (Negative) Adenovirus (PCR) Not Detected (NotDetected) B. pertussis DNA (PCR) Not Detected (NotDetected) B.parapertussis DNA PCR Not Detected (NotDetected) Lyme Disease IgG Ab (Negative) Lyme Disease IgM Ab (Negative) C. pneumoniae DNA (PCR) Not Detected (NotDetected) Coronavirus OC43 (PCR) Not Detected (NotDetected) Coronavirus HKU1 (PCR) Not Detected (NotDetected) Coronavirus 229E (PCR) Not Detected (NotDetected) SARS-CoV-2 (PCR) Not Detected (NotDetected) Coronavirus NL63 (PCR) Not Detected (NotDetected) Hepatitis A IgM Ab Hep Bs Antigen Hep Bs Ag Confirmation Hep B Core IgM Ab Hepatitis C Ab (EIA) Hep C Ab Signal/Cutoff Human Metapneumovir PCR Not Detected (NotDetected) Influenza Type A (PCR) Not Detected (NotDetected) Influenza Type B (PCR) Not Detected (NotDetected) Urine Legionella Ag M. pneumoniae (PCR) Not Detected (NotDetected) Parainfluenza 1 (PCR) Not Detected (NotDetected) Parainfluenza 2 (PCR) Not Detected (NotDetected) Parainfluenza 3 (PCR) Not Detected (NotDetected) Parainfluenza 4 (PCR) Not Detected (NotDetected) RSV (PCR) Not Detected (NotDetected) Entero/Rhino (PCR) Not Detected (NotDetected) SARS-CoV-2, RNA, NAAT (NEGATIVE) 11/14/22 11/13/22 11/13/22 Range/Units 05:57 18:31 18:20 WBC 8.37 (4.8-10.8) K/ul RBC 4.37 L (4.70-6.10) M/uL Hgb 13.6 L (14.0-18.0) g/dl Hct 40.1 L (42.0-52.0) % MCV 91.8 (80.0-100.0) fL MCH 31.1 (25.0-34.0) pg MCHC 33.9 (32.0-36.0) g/dL RDW Std Deviation 45.5 (36.4-46.3) fL RDW Coeff of Sandeep 13.3 (11.5-14.5) % Plt Count 170 (130-400) K/uL MPV 10.0 (9.4-12.4) fL Immature Gran % (Auto) 2.5 % Neut % (Auto) 88.3 % Lymph % (Auto) 4.5 % Ada % (Auto) 3.9 % Eos % (Auto) 0.0 % Baso % (Auto) 0.8 % Neut # (Auto) 7.38 H (1.40-6.50) K/uL Lymph # (Auto) 0.38 L (1.2-3.4) K/uL Ada # (Auto) 0.33 (0.11-0.59) K/uL Eos # (Auto) 0.00 (0-0.50) K/uL Baso # (Auto) 0.07 (0-0.2) K/uL Immature Gran # (Auto) 0.21 H (0.01-0.20) K/uL Absolute Nucleated RBC 0.02 (0-0.12) K/uL Nucleated RBC % (auto) 0.2 % Toxic Vacuolation 3+ Polychromasia 1+ Echinocytes 1+ Sodium (136-145) mmol/L Potassium (3.5-5.1) mmol/L Chloride (98-107) mmol/L Carbon Dioxide (21-32) mmol/L Anion Gap (3-11) BUN (6-23) mg/dl Creatinine (0.6-1.4) mg/dl Est Cr Clr Drug Dosing ml/min Est GFR ( Amer) ml/min Est GFR (Non-Af Amer) ml/min BUN/Creatinine Ratio (10-20) Glucose (70-99(Fasting)) mg/dl Lactate 1.5 (0.4-2.0) mmol/L Calcium (8.6-10.3) mg/dl Phosphorus (2.5-4.9) mg/dl Magnesium (1.7-2.4) mg/dl Total Bilirubin (0.2-1.0) mg/dl AST (13-39) U/L ALT (7-52) U/L Alkaline Phosphatase (34-104) U/L Troponin I High Sens (0-20) pg/ml Total Protein (6.0-8.3) gm/dl Albumin (3.4-5.0) gm/dl Globulin (2.5-4.0) gm/dl Albumin/Globulin Ratio (0.9-2) Urine Color Urine Appearance (Clear) Urine pH (4.5-7.5) Ur Specific [place] (1.000-1.030) Urine Protein (Negative) Urine Glucose (UA) (Negative) Urine Ketones (Negative) Urine Blood (Negative) Urine Nitrite (Negative) Urine Bilirubin (Negative) Urine Urobilinogen (Negative) Ur Leukocyte Esterase (Negative) Urine WBC (Auto) (0-5) /hpf Urine RBC (Auto) (0-4) /hpf U Hyaline Cast (Auto) (0-5) /lpf U Epithel Cells (Auto) (0-5) /lpf Urine Bacteria (Auto) (Negative) Ur Renal Epithelial Cell (0-5) /lpf Granular Casts (0) /lpf Urine Yeast Nasal Screen MRSA (PCR) Negative (Negative) Adenovirus (PCR) (NotDetected) B. pertussis DNA (PCR) (NotDetected) B.parapertussis DNA PCR (NotDetected) Lyme Disease IgG Ab (Negative) Lyme Disease IgM Ab (Negative) C. pneumoniae DNA (PCR) (NotDetected) Coronavirus OC43 (PCR) (NotDetected) Coronavirus HKU1 (PCR) (NotDetected) Coronavirus 229E (PCR) (NotDetected) SARS-CoV-2 (PCR) (NotDetected) Coronavirus NL63 (PCR) (NotDetected) Hepatitis A IgM Ab Hep Bs Antigen Hep Bs Ag Confirmation Hep B Core IgM Ab Hepatitis C Ab (EIA) Hep C Ab Signal/Cutoff Human Metapneumovir PCR (NotDetected) Influenza Type A (PCR) (NotDetected) Influenza Type B (PCR) (NotDetected) Urine Legionella Ag M. pneumoniae (PCR) (NotDetected) Parainfluenza 1 (PCR) (NotDetected) Parainfluenza 2 (PCR) (NotDetected) Parainfluenza 3 (PCR) (NotDetected) Parainfluenza 4 (PCR) (NotDetected) RSV (PCR) (NotDetected) Entero/Rhino (PCR) (NotDetected) SARS-CoV-2, RNA, NAAT (NEGATIVE) 11/13/22 11/13/22 11/13/22 Range/Units 16:55 16:55 15:55 WBC (4.8-10.8) K/ul RBC (4.70-6.10) M/uL Hgb (14.0-18.0) g/dl Hct (42.0-52.0) % MCV (80.0-100.0) fL MCH (25.0-34.0) pg MCHC (32.0-36.0) g/dL RDW Std Deviation (36.4-46.3) fL RDW Coeff of Sandeep (11.5-14.5) % Plt Count (130-400) K/uL MPV (9.4-12.4) fL Immature Gran % (Auto) % Neut % (Auto) % Lymph % (Auto) % Ada % (Auto) % Eos % (Auto) % Baso % (Auto) % Neut # (Auto) (1.40-6.50) K/uL Lymph # (Auto) (1.2-3.4) K/uL Ada # (Auto) (0.11-0.59) K/uL Eos # (Auto) (0-0.50) K/uL Baso # (Auto) (0-0.2) K/uL Immature Gran # (Auto) (0.01-0.20) K/uL Absolute Nucleated RBC (0-0.12) K/uL Nucleated RBC % (auto) % Toxic Vacuolation Polychromasia Echinocytes Sodium (136-145) mmol/L Potassium (3.5-5.1) mmol/L Chloride (98-107) mmol/L Carbon Dioxide (21-32) mmol/L Anion Gap (3-11) BUN (6-23) mg/dl Creatinine (0.6-1.4) mg/dl Est Cr Clr Drug Dosing ml/min Est GFR ( Amer) ml/min Est GFR (Non-Af Amer) ml/min BUN/Creatinine Ratio (10-20) Glucose (70-99(Fasting)) mg/dl Lactate 2.3 H* (0.4-2.0) mmol/L Calcium (8.6-10.3) mg/dl Phosphorus (2.5-4.9) mg/dl Magnesium (1.7-2.4) mg/dl Total Bilirubin (0.2-1.0) mg/dl AST (13-39) U/L ALT (7-52) U/L Alkaline Phosphatase (34-104) U/L Troponin I High Sens (0-20) pg/ml Total Protein (6.0-8.3) gm/dl Albumin (3.4-5.0) gm/dl Globulin (2.5-4.0) gm/dl Albumin/Globulin Ratio (0.9-2) Urine Color [place] Urine Appearance Cloudy A (Clear) Urine pH 5.5 (4.5-7.5) Ur Specific [place] 1.030 (1.000-1.030) Urine Protein 2+ H (Negative) Urine Glucose (UA) Negative (Negative) Urine Ketones 1+ H (Negative) Urine Blood 3+ H (Negative) Urine Nitrite Positive A (Negative) Urine Bilirubin 2+ H (Negative) Urine Urobilinogen Negative (Negative) Ur Leukocyte Esterase Trace H (Negative) Urine WBC (Auto) 5-10 H (0-5) /hpf Urine RBC (Auto) 0-4 (0-4) /hpf U Hyaline Cast (Auto) 1-5 (0-5) /lpf U Epithel Cells (Auto) >30 H (0-5) /lpf Urine Bacteria (Auto) Negative (Negative) Ur Renal Epithelial Cell 0-5 (0-5) /lpf Granular Casts 1-5 H (0) /lpf Urine Yeast Not Reportable Nasal Screen MRSA (PCR) (Negative) Adenovirus (PCR) (NotDetected) B. pertussis DNA (PCR) (NotDetected) B.parapertussis DNA PCR (NotDetected) Lyme Disease IgG Ab (Negative) Lyme Disease IgM Ab (Negative) C. pneumoniae DNA (PCR) (NotDetected) Coronavirus OC43 (PCR) (NotDetected) Coronavirus HKU1 (PCR) (NotDetected) Coronavirus 229E (PCR) (NotDetected) SARS-CoV-2 (PCR) (NotDetected) Coronavirus NL63 (PCR) (NotDetected) Hepatitis A IgM Ab Hep Bs Antigen Hep Bs Ag Confirmation Hep B Core IgM Ab Hepatitis C Ab (EIA) Hep C Ab Signal/Cutoff Human Metapneumovir PCR (NotDetected) Influenza Type A (PCR) (NotDetected) Influenza Type B (PCR) (NotDetected) Urine Legionella Ag Pending M. pneumoniae (PCR) (NotDetected) Parainfluenza 1 (PCR) (NotDetected) Parainfluenza 2 (PCR) (NotDetected) Parainfluenza 3 (PCR) (NotDetected) Parainfluenza 4 (PCR) (NotDetected) RSV (PCR) (NotDetected) Entero/Rhino (PCR) (NotDetected) SARS-CoV-2, RNA, NAAT (NEGATIVE) 11/13/22 11/13/22 11/13/22 Range/Units 15:28 14:12 14:12 WBC (4.8-10.8) K/ul RBC (4.70-6.10) M/uL Hgb (14.0-18.0) g/dl Hct (42.0-52.0) % MCV (80.0-100.0) fL MCH (25.0-34.0) pg MCHC (32.0-36.0) g/dL RDW Std Deviation (36.4-46.3) fL RDW Coeff of Sandeep (11.5-14.5) % Plt Count (130-400) K/uL MPV (9.4-12.4) fL Immature Gran % (Auto) % Neut % (Auto) % Lymph % (Auto) % Ada % (Auto) % Eos % (Auto) % Baso % (Auto) % Neut # (Auto) (1.40-6.50) K/uL Lymph # (Auto) (1.2-3.4) K/uL Ada # (Auto) (0.11-0.59) K/uL Eos # (Auto) (0-0.50) K/uL Baso # (Auto) (0-0.2) K/uL Immature Gran # (Auto) (0.01-0.20) K/uL Absolute Nucleated RBC (0-0.12) K/uL Nucleated RBC % (auto) % Toxic Vacuolation Polychromasia Echinocytes Sodium (136-145) mmol/L Potassium (3.5-5.1) mmol/L Chloride (98-107) mmol/L Carbon Dioxide (21-32) mmol/L Anion Gap (3-11) BUN (6-23) mg/dl Creatinine (0.6-1.4) mg/dl Est Cr Clr Drug Dosing ml/min Est GFR ( Amer) ml/min Est GFR (Non-Af Amer) ml/min BUN/Creatinine Ratio (10-20) Glucose (70-99(Fasting)) mg/dl Lactate (0.4-2.0) mmol/L Calcium (8.6-10.3) mg/dl Phosphorus (2.5-4.9) mg/dl Magnesium (1.7-2.4) mg/dl Total Bilirubin (0.2-1.0) mg/dl AST (13-39) U/L ALT (7-52) U/L Alkaline Phosphatase (34-104) U/L Troponin I High Sens (0-20) pg/ml Total Protein (6.0-8.3) gm/dl Albumin (3.4-5.0) gm/dl Globulin (2.5-4.0) gm/dl Albumin/Globulin Ratio (0.9-2) Urine Color Urine Appearance (Clear) Urine pH (4.5-7.5) Ur Specific [place] (1.000-1.030) Urine Protein (Negative) Urine Glucose (UA) (Negative) Urine Ketones (Negative) Urine Blood (Negative) Urine Nitrite (Negative) Urine Bilirubin (Negative) Urine Urobilinogen (Negative) Ur Leukocyte Esterase (Negative) Urine WBC (Auto) (0-5) /hpf Urine RBC (Auto) (0-4) /hpf U Hyaline Cast (Auto) (0-5) /lpf U Epithel Cells (Auto) (0-5) /lpf Urine Bacteria (Auto) (Negative) Ur Renal Epithelial Cell (0-5) /lpf Granular Casts (0) /lpf Urine Yeast Nasal Screen MRSA (PCR) (Negative) Adenovirus (PCR) (NotDetected) B. pertussis DNA (PCR) (NotDetected) B.parapertussis DNA PCR (NotDetected) Lyme Disease IgG Ab Negative (Negative) Lyme Disease IgM Ab Negative (Negative) C. pneumoniae DNA (PCR) (NotDetected) Coronavirus OC43 (PCR) (NotDetected) Coronavirus HKU1 (PCR) (NotDetected) Coronavirus 229E (PCR) (NotDetected) SARS-CoV-2 (PCR) (NotDetected) Coronavirus NL63 (PCR) (NotDetected) Hepatitis A IgM Ab Pending Hep Bs Antigen Pending Hep Bs Ag Confirmation Pending Hep B Core IgM Ab Pending Hepatitis C Ab (EIA) Pending Hep C Ab Signal/Cutoff Pending Human Metapneumovir PCR (NotDetected) Influenza Type A (PCR) (NotDetected) Influenza Type B (PCR) (NotDetected) Urine Legionella Ag M. pneumoniae (PCR) (NotDetected) Parainfluenza 1 (PCR) (NotDetected) Parainfluenza 2 (PCR) (NotDetected) Parainfluenza 3 (PCR) (NotDetected) Parainfluenza 4 (PCR) (NotDetected) RSV (PCR) (NotDetected) Entero/Rhino (PCR) (NotDetected) SARS-CoV-2, RNA, NAAT NEGATIVE (NEGATIVE) 04/29/23 Range/Units 14:11 WBC (4.8-10.8) K/ul RBC (4.70-6.10) M/uL Hgb (14.0-18.0) g/dl Hct (42.0-52.0) % MCV (80.0-100.0) fL MCH (25.0-34.0) pg MCHC (32.0-36.0) g/dL RDW Std Deviation (36.4-46.3) fL RDW Coeff of Sandeep (11.5-14.5) % Plt Count (130-400) K/uL MPV (9.4-12.4) fL Immature Gran % (Auto) % Neut % (Auto) % Lymph % (Auto) % Ada % (Auto) % Eos % (Auto) % Baso % (Auto) % Neut # (Auto) (1.40-6.50) K/uL Lymph # (Auto) (1.2-3.4) K/uL Ada # (Auto) (0.11-0.59) K/uL Eos # (Auto) (0-0.50) K/uL Baso # (Auto) (0-0.2) K/uL Immature Gran # (Auto) (0.01-0.20) K/uL Absolute Nucleated RBC (0-0.12) K/uL Nucleated RBC % (auto) % Toxic Vacuolation Polychromasia Echinocytes Sodium (136-145) mmol/L Potassium (3.5-5.1) mmol/L Chloride (98-107) mmol/L Carbon Dioxide (21-32) mmol/L Anion Gap (3-11) BUN (6-23) mg/dl Creatinine (0.6-1.4) mg/dl Est Cr Clr Drug Dosing ml/min Est GFR ( Amer) ml/min Est GFR (Non-Af Amer) ml/min BUN/Creatinine Ratio (10-20) Glucose (70-99(Fasting)) mg/dl Lactate (0.4-2.0) mmol/L Calcium (8.6-10.3) mg/dl Phosphorus (2.5-4.9) mg/dl Magnesium 1.4 L (1.7-2.4) mg/dl Total Bilirubin (0.2-1.0) mg/dl AST (13-39) U/L ALT (7-52) U/L Alkaline Phosphatase (34-104) U/L Troponin I High Sens 52.9 H* (0-20) pg/ml Total Protein (6.0-8.3) gm/dl Albumin (3.4-5.0) gm/dl Globulin (2.5-4.0) gm/dl Albumin/Globulin Ratio (0.9-2) Urine Color Urine Appearance (Clear) Urine pH (4.5-7.5) Ur Specific [place] (1.000-1.030) Urine Protein (Negative) Urine Glucose (UA) (Negative) Urine Ketones (Negative) Urine Blood (Negative) Urine Nitrite (Negative) Urine Bilirubin (Negative) Urine Urobilinogen (Negative) Ur Leukocyte Esterase (Negative) Urine WBC (Auto) (0-5) /hpf Urine RBC (Auto) (0-4) /hpf U Hyaline Cast (Auto) (0-5) /lpf U Epithel Cells (Auto) (0-5) /lpf Urine Bacteria (Auto) (Negative) Ur Renal Epithelial Cell (0-5) /lpf Granular Casts (0) /lpf Urine Yeast Nasal Screen MRSA (PCR) (Negative) Adenovirus (PCR) (NotDetected) B. pertussis DNA (PCR) (NotDetected) B.parapertussis DNA PCR (NotDetected) Lyme Disease IgG Ab (Negative) Lyme Disease IgM Ab (Negative) C. pneumoniae DNA (PCR) (NotDetected) Coronavirus OC43 (PCR) (NotDetected) Coronavirus HKU1 (PCR) (NotDetected) Coronavirus 229E (PCR) (NotDetected) SARS-CoV-2 (PCR) (NotDetected) Coronavirus NL63 (PCR) (NotDetected) Hepatitis A IgM Ab Hep Bs Antigen Hep Bs Ag Confirmation Hep B Core IgM Ab Hepatitis C Ab (EIA) Hep C Ab Signal/Cutoff Human Metapneumovir PCR (NotDetected) Influenza Type A (PCR) (NotDetected) Influenza Type B (PCR) (NotDetected) Urine Legionella Ag M. pneumoniae (PCR) (NotDetected) Parainfluenza 1 (PCR) (NotDetected) Parainfluenza 2 (PCR) (NotDetected) Parainfluenza 3 (PCR) (NotDetected) Parainfluenza 4 (PCR) (NotDetected) RSV (PCR) (NotDetected) Entero/Rhino (PCR) (NotDetected) SARS-CoV-2, RNA, NAAT (NEGATIVE) Medications Administered Current Inpatient Medications Albuterol (Albut/Ipratrop 3mg/0.5mg Neb 3 Ml Vial) 3 ml NEB Q4R PRN; Protocol PRN Reason: shortness of breath Stop: 12/13/22 19:26 Guaifenesin (Guaifenesin 600 Mg Tabcr) 600 mg PO Q12 LARA Stop: 12/13/22 20:59 Last Admin: 11/14/22 08:09 Dose: 600 mg Heparin Sodium (Porcine) (Heparin Sod 5,000 Unit/0.5 Ml Vial) 5,000 units SQ Q12 LARA Stop: 12/14/22 13:59 Piperacillin Sod/Tazobactam (Sod 4.5 gm/ Dextrose) 120 mls @ 30 mls/hr IV Q8H LARA; Protocol Stop: 11/21/22 02:29 Last Infusion: 11/14/22 15:00 Dose: Infused Azithromycin 500 mg/ Dextrose 255 mls @ 125 mls/hr IV DAILY LARA Stop: 11/20/22 19:44 Last Infusion: 11/14/22 10:15 Dose: Infused Olanzapine (Olanzapine 5 Mg Tablet) 5 mg PO HS LARA Stop: 12/13/22 20:59 Last Admin: 11/13/22 20:33 Dose: 5 mg Ondansetron HCl (Ondansetron Inj 2 Mg/Ml 2 Ml Vial) 4 mg IV Q6H PRN PRN Reason: Nausea Stop: 12/13/22 19:26 Potassium Phosphate (Pot Phosphate Monobasic W/ Sod Tab) 1 tab PO QID LARA Stop: 12/14/22 16:59 Trazodone HCl (Trazodone Hcl 100 Mg Tab) 100 mg PO HS LARA Stop: 12/13/22 20:59 Last Admin: 11/13/22 20:33 Dose: 100 mg
[2022-11-14] MEDS: HEPARIN SOD 5,000 UNIT/0.5 ML VIAL SQ SCH ×2 (15:33→20:34)
[2022-11-14] MEDS: POT PHOSPHATE MONOBASIC W/ SOD TAB PO SCH ×2 (17:00→20:33)
[2022-11-14 19:45] LABS: Adenovirus F 40/41 PCR Not Detected (NotDetected); Astrovirus PCR Not Detected (NotDetected); Campylobacter PCR Not Detected (NotDetected); Cryptosporidium PCR Not Detected (NotDetected); Cyclospora cayetanensis PCR Not Detected (NotDetected); Entamoeba histolytica PCR Not Detected (NotDetected); Enteroaggregative E.coli(EAEC) Not Detected (NotDetected); Enteropathogenic E.coli (EPEC) Not Detected (NotDetected); Enterotoxigenic E.coli (ETEC) Not Detected (NotDetected); Giardia lamblia PCR Not Detected (NotDetected); Norovirus GI/GII PCR Not Detected (NotDetected); Plesiomonas shigelloides PCR Not Detected (NotDetected); Rotavirus A PCR Not Detected (NotDetected); Salmonella PCR Not Detected (NotDetected); Sapovirus PCR Not Detected (NotDetected); Shiga-like Toxin E.coli (STEC) Not Detected (NotDetected); Shigella/Enteroinvasive E.coli Not Detected (NotDetected); Vibrio cholerae PCR Not Detected (NotDetected); Vibrio species PCR Not Detected (NotDetected); Yersinia enterocolitica PCR Not Detected (NotDetected)
[2022-11-14] MEDS: ADVANCED PROBIOTIC 1250 MG CAPSULE PO SCH (20:32)
[2022-11-14] MEDS: traZODone HCL 100 MG TAB PO SCH (20:33)
[2022-11-14] MEDS: OLANZapine 5 MG TABLET PO SCH (20:34)
--- NOTE | 2022-11-14 22:43 | Ultrasound Report ---
Exam(s): US GALLBLADDER EXAM: US Abdomen Limited, Gallbladder CLINICAL HISTORY: Reason for exam: elev. LFTs, total bilirubin. TECHNIQUE: Real-time ultrasound of the right upper quadrant with image documentation. COMPARISON: CT scan from November 13, 2022 FINDINGS: Liver: The liver is borderline enlarged measuring 17.1 cm craniocaudad. No focal liver lesion is seen. The main portal vein is patent with normal hepatopetal flow. Gallbladder: The gallbladder is normally distended with no visible gallstones. The wall thickness is normal measuring 2 mm. Sonographic Whitley sign is negative. Common bile duct: The common bile duct is nondilated measuring 3 mm. Pancreas: The visualized portion of the pancreas is unremarkable. Right kidney: The right kidney measures 10.9 cm with normal appearance. No hydronephrosis. IMPRESSION: No acute findings in the right upper quadrant. Electronically signed by: Bijan Bernabe MD 11/14/22 22:42 PM
[2022-11-14] MEDS ORDERED: ACETAMINOPHEN 325 MG TAB PO STA (23:50)
[2022-11-15] MEDS: PIPERACILLIN/TAZOBACTAM 4.5 GM in DEXTROSE 5% 100 ML IV SCH ×3 (03:11→19:50)
[2022-11-15 06:41] LABS: Albumin Globulin Ratio 1.1 (0.9-2); Albumin Level 3.1 gm/dl (3.4-5.0); BUN Creatinine Ratio 10.4 (10-20); Bilirubin,Total 2.6 mg/dl (0.2-1.0); Calcium 7.5 mg/dl (8.6-10.3); Creatinine Clr Calc Pharmacy 92.3 ml/min; Est GFR (African American) 71.6 ml/min; Est GFR (Non-African American) 61.8 ml/min; Globulin 2.9 gm/dl (2.5-4.0); Magnesium 2.3 mg/dl (1.7-2.4); Phosphorus 1.6 mg/dl (2.5-4.9); Potassium 3.5 mmol/L (3.5-5.1)
[2022-11-15 07:12] LABS: Basophils # (auto) 0.04 K/uL (0-0.2); Basophils % (auto) 0.6 %; Dohle Bodies 1+; Eosinophils # (auto) 0.01 K/uL (0-0.50); Eosinophils % (auto) 0.1 %; Hematocrit (blood only) 34.5 % (42.0-52.0); Hemoglobin 11.8 g/dl (14.0-18.0); Immature Granulocytes # (auto) 0.14 K/uL (0.01-0.20); Lymphocytes # (auto) 0.85 K/uL (1.2-3.4); Lymphocytes % (auto) 12.1 %; Mean Corpuscular Hemoglobin 31.1 pg (25.0-34.0); Mean Corpuscular Hgb Conc 34.2 g/dL (32.0-36.0); Mean Corpuscular Volume 90.8 fL (80.0-100.0); Mean Platelet Volume 10.5 fL (9.4-12.4); Monocytes # (auto) 0.52 K/uL (0.11-0.59); Monocytes % (auto) 7.4 %; Neutrophils # (auto) 5.44 K/uL (1.40-6.50); Neutrophils % (auto) 77.8 %; Platelet Count 182 K/uL (130-400); RDW Coefficient of Variation 13.2 % (11.5-14.5); RDW Standard Deviation 43.8 fL (36.4-46.3); Toxic Vacuolation 1+
[2022-11-15] MEDS: AZITHROMYCIN 500 MG in DEXTROSE 5% 250 ML IV SCH (08:42)
[2022-11-15] MEDS: ADVANCED PROBIOTIC 1250 MG CAPSULE PO SCH (08:42)
[2022-11-15] MEDS: guaiFENesin 600 MG TABCR PO SCH ×2 (08:43→21:09)
[2022-11-15] MEDS: POT PHOSPHATE MONOBASIC W/ SOD TAB PO SCH ×4 (08:43→21:09)
[2022-11-15] MEDS: HEPARIN SOD 5,000 UNIT/0.5 ML VIAL SQ SCH ×2 (08:43→21:10)
--- NOTE | 2022-11-15 08:52 | Gastrointestinal Consultation ---
Date of Consultation November 15, 2022 Assessment & Plan (1) Elevated liver enzymes: (2) Sepsis: (3) Pneumonia: Plan 47 y/o male inmate admitted with work-up c/w sepsis, PNA, diarrhea, elevated LFTs which have trended down but remain slightly elevated. Clinically has continued to be febrile w/ slight tachycardia; is on IV ABX. On exam, abd soft, nontender. - Given his fever and elevated LFTs will obtain MRCP to evaluate the biliary tree for retained stones, etc - Supportive care with IVF - Continue IV ABX - Await final stool cx to r/o infectious diarrhea - Monitor and document stool output - Will add PPI BID for report of dark stool Thank you for allowing us to participate in the care of this patient. Please call with any acute changes, questions or concerns. Please see addendum below with additional recommendation from my supervising physician. I have personally seen and examined the patient with Fabienne Cosme PA-C. Her note reflects my exam and findings. I agree with her impression and plan. Obstructive liver enzyme pattern still a concern. Agree with MRI. May need EUS. Amado Tse M.D. History of Present Illness Reason for Consultation: elev. LFTs, elev. Tbili, fever Requesting Physician: Dr. Razo Attending Physician: Ty Razo MD History of Present Illness This is a 47 y/o male inmate w/ PMHx mood disorder, admitted 11/13/22 after presenting with several days of nausea, vomiting, diarrhea, urinary sys, chills/rigors, found to have sepsis and possible right-sided PNA. He also had elevated LFTs which have trended down but remain slightly elevated (total bilirubin 3.3->2.6, AST/ALT 90's/100's-> 50's now). Initially had leukocytosis but this has trended down (13->7). HGB 130->11.8. CTAP unremarkable except for possible PNA. He was tx w/ IV ABX, IVF,. UCx/BCx NGTD. Has continued to be febrile and tachycardic. Pt states symptoms began several days M[place]WR[place]. Has had 3 loose BMs daily (dark/black), along with a cough, lightheadedness and nausea but no vomiting. Today had 1 bout of liquid stool that was sent for cx. Nurse states stool was black but not melanotic. Stool cx yesterday was neg. Denies abd pain, hematemesis, hematochezia, CP, dysphagia, heartburn. No prior abd surgeries. No prior similar symptoms. No recent ABX or recent meds. No ETOH use. + former tobacco use. No NSAID use. Allergies Allergy/AdvReac Type Severity Reaction Status Date / Time No Known Allergies Allergy Unverified 11/13/22 17:27 Home Medications Medication Instructions Recorded Confirmed Type olanzapine 5 mg tablet 5 mg PO HS 11/13/22 11/13/22 History trazodone 100 mg tablet 100 mg PO HS 11/13/22 11/13/22 History Patient History Medical History Mood disorder Surgical History No significant past surgical history Family History (Updated 11/13/22 @ 18:18 by TANYA Armendariz) Father Diabetes Social History Smoking Status: Former smoker Hx Alcohol Use: No Hx Substance Use: No Preferred Language: Irish Communication Ability: Effective Medical Practice Assistant Required: No Beliefs That Will Affect Care: None Current Living Situation: Other Current Living Situation Comment: [facility] Feels Safe at Home: Yes Safety Concerns: Feels Safe At This Time Assistive Devices: None Review of Systems Review of Systems: All systems reviewed & are unremarkable except as noted in HPI & below Physical Exam Constitutional: well developed, well nourished and comfortable; no acute distress Eyes: Sclera anicteric, no conjunctival injection ENMT: moist mucous membranes, no pallor Neck: trachea midline supple Respiratory: normal respiratory effort, lungs clear to auscultation (except right base w/ crackles ) Cardiovascular: +tachycardic Gastrointestinal (Abdomen): normal bowel sounds, soft, nontender, no hepatosplenomegaly Inspection/Auscultation: abdomen not distended Skin: no rashes, warm and dry Neurologic: alert and oriented x 3, no obvious focal neuro deficit Psychiatric: normal mood and affect Results & Data Vital Signs (Past 12 Hours) Vital Signs Temp Pulse Pulse Resp BP Pulse Ox O2 Del Method 11/15/22 07:51 38.0 C H 94 H 18 116/74 90 Room Air 11/15/22 03:19 37.4 C 93 H 114/74 91 Room Air 11/15/22 00:46 37.7 C H 11/15/22 00:00 112 H 11/14/22 23:32 38.4 C H 98 H 22 111/67 94 Room Air Laboratory Results 11/15/22 11/15/22 11/15/22 Range/Units 07:50 05:28 05:28 WBC 7.00 (4.8-10.8) K/ul RBC 3.80 L (4.70-6.10) M/uL Hgb 11.8 L (14.0-18.0) g/dl Hct 34.5 L (42.0-52.0) % MCV 90.8 (80.0-100.0) fL MCH 31.1 (25.0-34.0) pg MCHC 34.2 (32.0-36.0) g/dL RDW Std Deviation 43.8 (36.4-46.3) fL RDW Coeff of Sandeep 13.2 (11.5-14.5) % Plt Count 182 (130-400) K/uL MPV 10.5 (9.4-12.4) fL Immature Gran % (Auto) 2.0 % Neut % (Auto) 77.8 % Lymph % (Auto) 12.1 % Hamilton % (Auto) 7.4 % Eos % (Auto) 0.1 % Baso % (Auto) 0.6 % Neut # (Auto) 5.44 (1.40-6.50) K/uL Lymph # (Auto) 0.85 L (1.2-3.4) K/uL Hamilton # (Auto) 0.52 (0.11-0.59) K/uL Eos # (Auto) 0.01 (0-0.50) K/uL Baso # (Auto) 0.04 (0-0.2) K/uL Immature Gran # (Auto) 0.14 (0.01-0.20) K/uL Toxic Vacuolation 1+ Dohle Bodies 1+ Sodium 135 L (136-145) mmol/L Potassium 3.5 (3.5-5.1) mmol/L Chloride 103 (98-107) mmol/L Carbon Dioxide 22 (21-32) mmol/L Anion Gap 10 (3-11) BUN 14 (6-23) mg/dl Creatinine 1.34 (0.6-1.4) mg/dl Est Cr Clr Drug Dosing 92.3 ml/min Est GFR ( Amer) 71.6 ml/min Est GFR (Non-Af Amer) 61.8 ml/min BUN/Creatinine Ratio 10.4 (10-20) Glucose 95 (70-99(Fasting)) mg/dl POC Glucose 85 (70-99) mg/dl Calcium 7.5 L (8.6-10.3) mg/dl Phosphorus 1.6 L (2.5-4.9) mg/dl Magnesium 2.3 (1.7-2.4) mg/dl Total Bilirubin 2.6 H (0.2-1.0) mg/dl AST 56 H (13-39) U/L ALT 54 H (7-52) U/L Alkaline Phosphatase 51 (34-104) U/L Troponin I High Sens (0-20) pg/ml Total Protein 6.0 (6.0-8.3) gm/dl Albumin 3.1 L (3.4-5.0) gm/dl Globulin 2.9 (2.5-4.0) gm/dl Albumin/Globulin Ratio 1.1 (0.9-2) Stl C. cayetanensis PCR (NotDetected) Stool Rotavirus A PCR (NotDetected) Stl Adenov F 40/41 PCR (NotDetected) Stool Astrovirus (PCR) (NotDetected) Stool Campylobacter PCR (NotDetected) Stool Cryptosporidium PCR (NotDetected) Stl E.coli Shiga Tox PCR (NotDetected) Stl Enterotoxigenic E PCR (NotDetected) Stool EPEC (PCR) (NotDetected) Stool EAEC (PCR) (NotDetected) Stl E. histolytica PCR (NotDetected) Stool Giardia Lamblia PCR (NotDetected) Stool Salmonella PCR (NotDetected) Stool Sapovirus (PCR) (NotDetected) Stl P. shigelloides PCR (NotDetected) Stl Shigella/EIEC PCR (NotDetected) St Y.enterocolitica PCR (NotDetected) Stool Vibrio (PCR) (NotDetected) Stl Vibrio cholerae PCR (NotDetected) Stl Norovirus GI/GII PCR (NotDetected) Adenovirus (PCR) (NotDetected) B. pertussis DNA (PCR) (NotDetected) B.parapertussis DNA PCR (NotDetected) C. pneumoniae DNA (PCR) (NotDetected) Coronavirus OC43 (PCR) (NotDetected) Coronavirus HKU1 (PCR) (NotDetected) Coronavirus 229E (PCR) (NotDetected) SARS-CoV-2 (PCR) (NotDetected) Coronavirus NL63 (PCR) (NotDetected) Human Metapneumovir PCR (NotDetected) Influenza Type A (PCR) (NotDetected) Influenza Type B (PCR) (NotDetected) M. pneumoniae (PCR) (NotDetected) Parainfluenza 1 (PCR) (NotDetected) Parainfluenza 2 (PCR) (NotDetected) Parainfluenza 3 (PCR) (NotDetected) Parainfluenza 4 (PCR) (NotDetected) RSV (PCR) (NotDetected) Entero/Rhino (PCR) (NotDetected) 11/14/22 11/14/22 11/14/22 Range/Units Unknown 12:52 12:52 WBC (4.8-10.8) K/ul RBC (4.70-6.10) M/uL Hgb (14.0-18.0) g/dl Hct (42.0-52.0) % MCV (80.0-100.0) fL MCH (25.0-34.0) pg MCHC (32.0-36.0) g/dL RDW Std Deviation (36.4-46.3) fL RDW Coeff of Sandeep (11.5-14.5) % Plt Count (130-400) K/uL MPV (9.4-12.4) fL Immature Gran % (Auto) % Neut % (Auto) % Lymph % (Auto) % Hamilton % (Auto) % Eos % (Auto) % Baso % (Auto) % Neut # (Auto) (1.40-6.50) K/uL Lymph # (Auto) (1.2-3.4) K/uL Hamilton # (Auto) (0.11-0.59) K/uL Eos # (Auto) (0-0.50) K/uL Baso # (Auto) (0-0.2) K/uL Immature Gran # (Auto) (0.01-0.20) K/uL Toxic Vacuolation Dohle Bodies Sodium (136-145) mmol/L Potassium (3.5-5.1) mmol/L Chloride (98-107) mmol/L Carbon Dioxide (21-32) mmol/L Anion Gap (3-11) BUN (6-23) mg/dl Creatinine (0.6-1.4) mg/dl Est Cr Clr Drug Dosing ml/min Est GFR ( Amer) ml/min Est GFR (Non-Af Amer) ml/min BUN/Creatinine Ratio (10-20) Glucose (70-99(Fasting)) mg/dl POC Glucose (70-99) mg/dl Calcium (8.6-10.3) mg/dl Phosphorus (2.5-4.9) mg/dl Magnesium (1.7-2.4) mg/dl Total Bilirubin (0.2-1.0) mg/dl AST (13-39) U/L ALT (7-52) U/L Alkaline Phosphatase (34-104) U/L Troponin I High Sens 35.4 H (0-20) pg/ml Total Protein (6.0-8.3) gm/dl Albumin (3.4-5.0) gm/dl Globulin (2.5-4.0) gm/dl Albumin/Globulin Ratio (0.9-2) Stl C. cayetanensis PCR Not Detected (NotDetected) Stool Rotavirus A PCR Not Detected (NotDetected) Stl Adenov F 40/41 PCR Not Detected (NotDetected) Stool Astrovirus (PCR) Not Detected (NotDetected) Stool Campylobacter PCR Not Detected (NotDetected) Stool Cryptosporidium PCR Not Detected (NotDetected) Stl E.coli Shiga Tox PCR Not Detected (NotDetected) Stl Enterotoxigenic E PCR Not Detected (NotDetected) Stool EPEC (PCR) Not Detected (NotDetected) Stool EAEC (PCR) Not Detected (NotDetected) Stl E. histolytica PCR Not Detected (NotDetected) Stool Giardia Lamblia PCR Not Detected (NotDetected) Stool Salmonella PCR Not Detected (NotDetected) Stool Sapovirus (PCR) Not Detected (NotDetected) Stl P. shigelloides PCR Not Detected (NotDetected) Stl Shigella/EIEC PCR Not Detected (NotDetected) St Y.enterocolitica PCR Not Detected (NotDetected) Stool Vibrio (PCR) Not Detected (NotDetected) Stl Vibrio cholerae PCR Not Detected (NotDetected) Stl Norovirus GI/GII PCR Not Detected (NotDetected) Adenovirus (PCR) Not Detected (NotDetected) B. pertussis DNA (PCR) Not Detected (NotDetected) B.parapertussis DNA PCR Not Detected (NotDetected) C. pneumoniae DNA (PCR) Not Detected (NotDetected) Coronavirus OC43 (PCR) Not Detected (NotDetected) Coronavirus HKU1 (PCR) Not Detected (NotDetected) Coronavirus 229E (PCR) Not Detected (NotDetected) SARS-CoV-2 (PCR) Not Detected (NotDetected) Coronavirus NL63 (PCR) Not Detected (NotDetected) Human Metapneumovir PCR Not Detected (NotDetected) Influenza Type A (PCR) Not Detected (NotDetected) Influenza Type B (PCR) Not Detected (NotDetected) M. pneumoniae (PCR) Not Detected (NotDetected) Parainfluenza 1 (PCR) Not Detected (NotDetected) Parainfluenza 2 (PCR) Not Detected (NotDetected) Parainfluenza 3 (PCR) Not Detected (NotDetected) Parainfluenza 4 (PCR) Not Detected (NotDetected) RSV (PCR) Not Detected (NotDetected) Entero/Rhino (PCR) Not Detected (NotDetected) 11/14/22 Range/Units 05:57 WBC (4.8-10.8) K/ul RBC (4.70-6.10) M/uL Hgb (14.0-18.0) g/dl Hct (42.0-52.0) % MCV (80.0-100.0) fL MCH (25.0-34.0) pg MCHC (32.0-36.0) g/dL RDW Std Deviation (36.4-46.3) fL RDW Coeff of Sandeep (11.5-14.5) % Plt Count (130-400) K/uL MPV (9.4-12.4) fL Immature Gran % (Auto) % Neut % (Auto) % Lymph % (Auto) % Hamilton % (Auto) % Eos % (Auto) % Baso % (Auto) % Neut # (Auto) (1.40-6.50) K/uL Lymph # (Auto) (1.2-3.4) K/uL Hamilton # (Auto) (0.11-0.59) K/uL Eos # (Auto) (0-0.50) K/uL Baso # (Auto) (0-0.2) K/uL Immature Gran # (Auto) (0.01-0.20) K/uL Toxic Vacuolation Dohle Bodies Sodium (136-145) mmol/L Potassium (3.5-5.1) mmol/L Chloride (98-107) mmol/L Carbon Dioxide (21-32) mmol/L Anion Gap (3-11) BUN (6-23) mg/dl Creatinine (0.6-1.4) mg/dl Est Cr Clr Drug Dosing ml/min Est GFR ( Amer) ml/min Est GFR (Non-Af Amer) ml/min BUN/Creatinine Ratio (10-20) Glucose (70-99(Fasting)) mg/dl POC Glucose (70-99) mg/dl Calcium (8.6-10.3) mg/dl Phosphorus (2.5-4.9) mg/dl Magnesium (1.7-2.4) mg/dl Total Bilirubin (0.2-1.0) mg/dl AST (13-39) U/L ALT (7-52) U/L Alkaline Phosphatase (34-104) U/L Troponin I High Sens 33.1 H D (0-20) pg/ml Total Protein (6.0-8.3) gm/dl Albumin (3.4-5.0) gm/dl Globulin (2.5-4.0) gm/dl Albumin/Globulin Ratio (0.9-2) Stl C. cayetanensis PCR (NotDetected) Stool Rotavirus A PCR (NotDetected) Stl Adenov F 40/41 PCR (NotDetected) Stool Astrovirus (PCR) (NotDetected) Stool Campylobacter PCR (NotDetected) Stool Cryptosporidium PCR (NotDetected) Stl E.coli Shiga Tox PCR (NotDetected) Stl Enterotoxigenic E PCR (NotDetected) Stool EPEC (PCR) (NotDetected) Stool EAEC (PCR) (NotDetected) Stl E. histolytica PCR (NotDetected) Stool Giardia Lamblia PCR (NotDetected) Stool Salmonella PCR (NotDetected) Stool Sapovirus (PCR) (NotDetected) Stl P. shigelloides PCR (NotDetected) Stl Shigella/EIEC PCR (NotDetected) St Y.enterocolitica PCR (NotDetected) Stool Vibrio (PCR) (NotDetected) Stl Vibrio cholerae PCR (NotDetected) Stl Norovirus GI/GII PCR (NotDetected) Adenovirus (PCR) (NotDetected) B. pertussis DNA (PCR) (NotDetected) B.parapertussis DNA PCR (NotDetected) C. pneumoniae DNA (PCR) (NotDetected) Coronavirus OC43 (PCR) (NotDetected) Coronavirus HKU1 (PCR) (NotDetected) Coronavirus 229E (PCR) (NotDetected) SARS-CoV-2 (PCR) (NotDetected) Coronavirus NL63 (PCR) (NotDetected) Human Metapneumovir PCR (NotDetected) Influenza Type A (PCR) (NotDetected) Influenza Type B (PCR) (NotDetected) M. pneumoniae (PCR) (NotDetected) Parainfluenza 1 (PCR) (NotDetected) Parainfluenza 2 (PCR) (NotDetected) Parainfluenza 3 (PCR) (NotDetected) Parainfluenza 4 (PCR) (NotDetected) RSV (PCR) (NotDetected) Entero/Rhino (PCR) (NotDetected) Diagnostic Findings CTAP: CLINICAL HISTORY: Back pain. COMPARISON STUDY: No priors. TECHNIQUE: CT scan of the abdomen and pelvis is performed from the lung bases to the proximal femora. Images are reviewed in the axial, sagittal, and coronal planes. IV contrast was not administered for this examination. A dose lowering technique was utilized adhering to the principles of ALARA. CT DOSE: 729.68 mGy.cm FINDINGS: Lung bases: The heart is normal in size noting trace pericardial effusion. Right lower lobe consolidation is typical for pneumonia. The left lung base is clear. No pleural effusion is identified. Liver: The unenhanced liver is normal in size, contour, and attenuation. There is no intrahepatic biliary ductal dilatation. Gallbladder: Unremarkable. Spleen: Normal in size and attenuation. Pancreas: Unremarkable. Adrenal glands: Unremarkable. Kidneys: The unenhanced kidneys are normal in size and without hydronephrosis. No renal calculi are identified and no ureteral stone is seen. There is no evidence of contour deforming renal mass lesion. Abdominal vasculature: The abdominal aorta is normal in course and caliber. Bowel: There is no bowel obstruction. The appendix is well-visualized and normal. Peritoneum: There is no intraperitoneal free air or abdominal ascites. There is a fat-containing umbilical hernia. Lymphadenopathy: None. Pelvic viscera: The bladder, prostate, and seminal vesicles are normal as visualized. Skeletal structures: No lytic or blastic lesions are seen. 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 IMPRESSION: 1. No acute infectious or inflammatory findings are identified in the abdomen or pelvis. 2. Right basilar consolidation is typical for pneumonia. Clinical correlation will be required and radiographic follow-up to resolution is recommended 3. Avascular necrosis of the femoral heads. 4. Additional findings as above. Gallbladder US: COMPARISON: CT scan from November 13, 2022 FINDINGS: Liver: The liver is borderline enlarged measuring 17.1 cm craniocaudad. No focal liver lesion is seen. The main portal vein is patent with normal hepatopetal flow. Gallbladder: The gallbladder is normally distended with no visible gallstones. The wall thickness is normal measuring 2 mm. Sonographic Whitley sign is negative. Common bile duct: The common bile duct is nondilated measuring 3 mm. Pancreas: The visualized portion of the pancreas is unremarkable. Right kidney: The right kidney measures 10.9 cm with normal appearance. No hydronephrosis. IMPRESSION: No acute findings in the right upper quadrant. CXR: CLINICAL HISTORY: Fever. FINDINGS: An AP, portable, upright chest radiograph is obtained. No prior studies are available for comparison at the time of dictation. The examination is degraded by portable technique and apical lordotic positioning. The cardiomediastinal silhouette is unremarkable. There are right basilar opacities. The left lung appears clear. No large pleural effusion or Pneumothorax is seen. The bony thorax is grossly intact. IMPRESSION: Right basilar opacities could represent atelectasis versus a mild pneumonitis. Clinical correlation will be required. Radiographic follow-up to resolution is recommended. (2) Sepsis Sepsis acute organ dysfunction status: without acute organ dysfunction Sepsis type: sepsis due to unspecified organism Qualified Code(s): A41.9 - Sepsis, unspecified organism (3) Pneumonia Laterality: right Lung location: lower lobe of lung Pneumonia type: due to unspecified organism Qualified Code(s): J18.9 - Pneumonia, unspecified organism
--- NOTE | 2022-11-15 10:52 | Hospitalist Progress Note ---
Date of Service November 15, 2022 Assessment & Plan (1) Severe sepsis: (2) UTI (urinary tract infection): (3) Pneumonia: Plan: Patient presenting from [facility] for evaluation of fever, weakness, nausea/vomit., diarrhea In the ED, febrile 39.5 C, tachycardic 110's, WBC 12.9 K, lactate 2.3. BP normal. CT ABD/pelvis negative for acute abdominal findings however noted right basilar consolidation Blood cultx, urine cultx, sputum cultx - ordered Blood cultx - negat. so far Resp. biofire negative Legionella Ag - pending Stool PCR - negative Received cefepime in the ED, now cont. with IV Zosyn + Azithromycin MRSA nasal swab - negative lactate trended down Follow blood, urine, sputum cultures Pulmonary toilet with nebs, Mucinex, incentive spirometer, flutter valve (4) Elevated LFTs: Plan: T. bili 3.3, AST 113, ALT 99, alk phos 55 Patient denies history of liver disease - likely secondary to sepsis - hepatitis panel - pending CT abd./pelvis negative for intraabd.pathology - RUQ US obtained - Gallbladder: The gallbladder is normally distended with no visible gallstones. The wall thickness is normal measuring 2 mm. Sonographic Whitley sign is negative. IMPRESSION: No acute findings in the right upper quadrant. - GI consulted - will obtain MRCP (5) MARTÍN (acute kidney injury): Plan: Creatinine 1.6, unknown baseline however patient denies history of kidney disease Likely MARTÍN due to sepsis IVF, follow renal functions (6) Acute electrocardiogram changes: Plan: EKG shows T wave inversion in the lateral leads No reports of chest pain on admission May be due to electrolyte abnormality and/or tachycardia troponin obtained 54 -> 35 (likely secondary to sepsis, tachycardia) -monitor closely on telemetry (7) Hypokalemia: (8) Hypomagnesemia: Plan: K+ 3.2, Mg +1.4 Replete, and monitor (9) Diarrhea: Plan: Checked stool studies, as above (10) Mood disorder: Plan: Continue olanzapine and trazodone DVT ppx- heparin subq Admission and Anticipated Discharge Date Admission Date: November 13, 2022 Subjective Pt seen in follow up of sepsis, fever, pna in no acute distress, ambulating to bathroom On admission denied any cough, now says that has frequent cough, but no sputum production Reports upper abd. discomfort Continues to have diarrhea stool pcr negative Does not wish to advance his diet, feels that he would not be able to tolerate more than liquids. Continues to be febrile, and feeling weak. Continues to be tachycardic. LFTs and Tbili elevated, CT abd, pelvis unremarkable, US gallbladder unremarkable -> Discussed w/ GI - will obtain MRCP Review of Systems Review of Systems: All systems reviewed & are unremarkable except as noted in Subjective Physical Exam Physical Exam: Constitutional:L WD/WN, in no acute distress Eyes: PERRL, EOMI conjun ctivae normal, ani cteric sclerae ENMT: external ear and n ose normal, oropha rynx normal Respiratory: normal respiratory effort; no respir atory distress Au scultation: + rhon chi (Right base) Cardiovascular:L + tachycardic Ves sels: normal perip heral pulses Extr emities: no edema Gastrointestinal ( Abdomen): + abdomen distend ed and normal sukhi l sounds, soft; a bdomen nontender Musculoskeletal: moves extremities Skin: no rashes, warm an d dry Neurologic: PERRL, EOMI, no fa ce palsy, no dysar thria, moves extre mities Psychiatric: A+Ox3, euthymic af fect Results & Data Results & Data Vital Signs (Past 12 Hours) Vital Signs Temp Pulse Pulse Resp BP Pulse Ox O2 Del Method 11/15/22 08:00 Room Air 11/15/22 07:51 38.0 C H 94 H 18 116/74 90 Room Air 11/15/22 03:19 37.4 C 93 H 114/74 91 Room Air 11/15/22 00:46 37.7 C H 11/15/22 00:00 112 H 11/14/22 23:32 38.4 C H 98 H 22 111/67 94 Room Air Laboratory Results 11/15/22 11/15/22 11/15/22 Range/Units 07:50 05:28 05:28 WBC (4.8-10.8) K/ul RBC (4.70-6.10) M/uL Hgb (14.0-18.0) g/dl Hct (42.0-52.0) % MCV (80.0-100.0) fL MCH (25.0-34.0) pg MCHC (32.0-36.0) g/dL RDW Std Deviation (36.4-46.3) fL RDW Coeff of Sandeep (11.5-14.5) % Plt Count (130-400) K/uL MPV (9.4-12.4) fL Immature Gran % (Auto) % Neut % (Auto) % Lymph % (Auto) % [place] % (Auto) % Eos % (Auto) % Baso % (Auto) % Neut # (Auto) (1.40-6.50) K/uL Lymph # (Auto) (1.2-3.4) K/uL [place] # (Auto) (0.11-0.59) K/uL Eos # (Auto) (0-0.50) K/uL Baso # (Auto) (0-0.2) K/uL Immature Gran # (Auto) (0.01-0.20) K/uL Toxic Vacuolation Dohle Bodies Sodium 135 L (136-145) mmol/L Potassium 3.5 (3.5-5.1) mmol/L Chloride 103 (98-107) mmol/L Carbon Dioxide 22 (21-32) mmol/L Anion Gap 10 (3-11) BUN 14 (6-23) mg/dl Creatinine 1.34 (0.6-1.4) mg/dl Est Cr Clr Drug Dosing 92.3 ml/min Est GFR ( Amer) 71.6 ml/min Est GFR (Non-Af Amer) 61.8 ml/min BUN/Creatinine Ratio 10.4 (10-20) Glucose 95 (70-99(Fasting)) mg/dl POC Glucose 85 (70-99) mg/dl Calcium 7.5 L (8.6-10.3) mg/dl Phosphorus 1.6 L (2.5-4.9) mg/dl Magnesium 2.3 (1.7-2.4) mg/dl Total Bilirubin 2.6 H (0.2-1.0) mg/dl Direct Bilirubin 1.3 H (0-0.2) mg/dl AST 56 H (13-39) U/L ALT 54 H (7-52) U/L Alkaline Phosphatase 51 (34-104) U/L Troponin I High Sens (0-20) pg/ml Total Protein 6.0 (6.0-8.3) gm/dl Albumin 3.1 L (3.4-5.0) gm/dl Globulin 2.9 (2.5-4.0) gm/dl Albumin/Globulin Ratio 1.1 (0.9-2) Stl C. cayetanensis PCR (NotDetected) Stool Rotavirus A PCR (NotDetected) Stl Adenov F 40/41 PCR (NotDetected) Stool Astrovirus (PCR) (NotDetected) Stool Campylobacter PCR (NotDetected) Stool Cryptosporidium PCR (NotDetected) Stl E.coli Shiga Tox PCR (NotDetected) Stl Enterotoxigenic E PCR (NotDetected) Stool EPEC (PCR) (NotDetected) Stool EAEC (PCR) (NotDetected) Stl E. histolytica PCR (NotDetected) Stool Giardia Lamblia PCR (NotDetected) Stool Salmonella PCR (NotDetected) Stool Sapovirus (PCR) (NotDetected) Stl P. shigelloides PCR (NotDetected) Stl Shigella/EIEC PCR (NotDetected) St Y.enterocolitica PCR (NotDetected) Stool Vibrio (PCR) (NotDetected) Stl Vibrio cholerae PCR (NotDetected) Stl Norovirus GI/GII PCR (NotDetected) Adenovirus (PCR) (NotDetected) B. pertussis DNA (PCR) (NotDetected) B.parapertussis DNA PCR (NotDetected) C. pneumoniae DNA (PCR) (NotDetected) Coronavirus OC43 (PCR) (NotDetected) Coronavirus HKU1 (PCR) (NotDetected) Coronavirus 229E (PCR) (NotDetected) SARS-CoV-2 (PCR) (NotDetected) Coronavirus NL63 (PCR) (NotDetected) Human Metapneumovir PCR (NotDetected) Influenza Type A (PCR) (NotDetected) Influenza Type B (PCR) (NotDetected) M. pneumoniae (PCR) (NotDetected) Parainfluenza 1 (PCR) (NotDetected) Parainfluenza 2 (PCR) (NotDetected) Parainfluenza 3 (PCR) (NotDetected) Parainfluenza 4 (PCR) (NotDetected) RSV (PCR) (NotDetected) Entero/Rhino (PCR) (NotDetected) 11/15/22 11/14/22 11/14/22 Range/Units 05:28 Unknown 12:52 WBC 7.00 (4.8-10.8) K/ul RBC 3.80 L (4.70-6.10) M/uL Hgb 11.8 L (14.0-18.0) g/dl Hct 34.5 L (42.0-52.0) % MCV 90.8 (80.0-100.0) fL MCH 31.1 (25.0-34.0) pg MCHC 34.2 (32.0-36.0) g/dL RDW Std Deviation 43.8 (36.4-46.3) fL RDW Coeff of Sandeep 13.2 (11.5-14.5) % Plt Count 182 (130-400) K/uL MPV 10.5 (9.4-12.4) fL Immature Gran % (Auto) 2.0 % Neut % (Auto) 77.8 % Lymph % (Auto) 12.1 % [place] % (Auto) 7.4 % Eos % (Auto) 0.1 % Baso % (Auto) 0.6 % Neut # (Auto) 5.44 (1.40-6.50) K/uL Lymph # (Auto) 0.85 L (1.2-3.4) K/uL [place] # (Auto) 0.52 (0.11-0.59) K/uL Eos # (Auto) 0.01 (0-0.50) K/uL Baso # (Auto) 0.04 (0-0.2) K/uL Immature Gran # (Auto) 0.14 (0.01-0.20) K/uL Toxic Vacuolation 1+ Dohle Bodies 1+ Sodium (136-145) mmol/L Potassium (3.5-5.1) mmol/L Chloride (98-107) mmol/L Carbon Dioxide (21-32) mmol/L Anion Gap (3-11) BUN (6-23) mg/dl Creatinine (0.6-1.4) mg/dl Est Cr Clr Drug Dosing ml/min Est GFR ( Amer) ml/min Est GFR (Non-Af Amer) ml/min BUN/Creatinine Ratio (10-20) Glucose (70-99(Fasting)) mg/dl POC Glucose (70-99) mg/dl Calcium (8.6-10.3) mg/dl Phosphorus (2.5-4.9) mg/dl Magnesium (1.7-2.4) mg/dl Total Bilirubin (0.2-1.0) mg/dl Direct Bilirubin (0-0.2) mg/dl AST (13-39) U/L ALT (7-52) U/L Alkaline Phosphatase (34-104) U/L Troponin I High Sens (0-20) pg/ml Total Protein (6.0-8.3) gm/dl Albumin (3.4-5.0) gm/dl Globulin (2.5-4.0) gm/dl Albumin/Globulin Ratio (0.9-2) Stl C. cayetanensis PCR Not Detected (NotDetected) Stool Rotavirus A PCR Not Detected (NotDetected) Stl Adenov F 40/41 PCR Not Detected (NotDetected) Stool Astrovirus (PCR) Not Detected (NotDetected) Stool Campylobacter PCR Not Detected (NotDetected) Stool Cryptosporidium PCR Not Detected (NotDetected) Stl E.coli Shiga Tox PCR Not Detected (NotDetected) Stl Enterotoxigenic E PCR Not Detected (NotDetected) Stool EPEC (PCR) Not Detected (NotDetected) Stool EAEC (PCR) Not Detected (NotDetected) Stl E. histolytica PCR Not Detected (NotDetected) Stool Giardia Lamblia PCR Not Detected (NotDetected) Stool Salmonella PCR Not Detected (NotDetected) Stool Sapovirus (PCR) Not Detected (NotDetected) Stl P. shigelloides PCR Not Detected (NotDetected) Stl Shigella/EIEC PCR Not Detected (NotDetected) St Y.enterocolitica PCR Not Detected (NotDetected) Stool Vibrio (PCR) Not Detected (NotDetected) Stl Vibrio cholerae PCR Not Detected (NotDetected) Stl Norovirus GI/GII PCR Not Detected (NotDetected) Adenovirus (PCR) Not Detected (NotDetected) B. pertussis DNA (PCR) Not Detected (NotDetected) B.parapertussis DNA PCR Not Detected (NotDetected) C. pneumoniae DNA (PCR) Not Detected (NotDetected) Coronavirus OC43 (PCR) Not Detected (NotDetected) Coronavirus HKU1 (PCR) Not Detected (NotDetected) Coronavirus 229E (PCR) Not Detected (NotDetected) SARS-CoV-2 (PCR) Not Detected (NotDetected) Coronavirus NL63 (PCR) Not Detected (NotDetected) Human Metapneumovir PCR Not Detected (NotDetected) Influenza Type A (PCR) Not Detected (NotDetected) Influenza Type B (PCR) Not Detected (NotDetected) M. pneumoniae (PCR) Not Detected (NotDetected) Parainfluenza 1 (PCR) Not Detected (NotDetected) Parainfluenza 2 (PCR) Not Detected (NotDetected) Parainfluenza 3 (PCR) Not Detected (NotDetected) Parainfluenza 4 (PCR) Not Detected (NotDetected) RSV (PCR) Not Detected (NotDetected) Entero/Rhino (PCR) Not Detected (NotDetected) 11/14/22 Range/Units 12:52 WBC (4.8-10.8) K/ul RBC (4.70-6.10) M/uL Hgb (14.0-18.0) g/dl Hct (42.0-52.0) % MCV (80.0-100.0) fL MCH (25.0-34.0) pg MCHC (32.0-36.0) g/dL RDW Std Deviation (36.4-46.3) fL RDW Coeff of Sandeep (11.5-14.5) % Plt Count (130-400) K/uL MPV (9.4-12.4) fL Immature Gran % (Auto) % Neut % (Auto) % Lymph % (Auto) % [place] % (Auto) % Eos % (Auto) % Baso % (Auto) % Neut # (Auto) (1.40-6.50) K/uL Lymph # (Auto) (1.2-3.4) K/uL [place] # (Auto) (0.11-0.59) K/uL Eos # (Auto) (0-0.50) K/uL Baso # (Auto) (0-0.2) K/uL Immature Gran # (Auto) (0.01-0.20) K/uL Toxic Vacuolation Dohle Bodies Sodium (136-145) mmol/L Potassium (3.5-5.1) mmol/L Chloride (98-107) mmol/L Carbon Dioxide (21-32) mmol/L Anion Gap (3-11) BUN (6-23) mg/dl Creatinine (0.6-1.4) mg/dl Est Cr Clr Drug Dosing ml/min Est GFR ( Amer) ml/min Est GFR (Non-Af Amer) ml/min BUN/Creatinine Ratio (10-20) Glucose (70-99(Fasting)) mg/dl POC Glucose (70-99) mg/dl Calcium (8.6-10.3) mg/dl Phosphorus (2.5-4.9) mg/dl Magnesium (1.7-2.4) mg/dl Total Bilirubin (0.2-1.0) mg/dl Direct Bilirubin (0-0.2) mg/dl AST (13-39) U/L ALT (7-52) U/L Alkaline Phosphatase (34-104) U/L Troponin I High Sens 35.4 H (0-20) pg/ml Total Protein (6.0-8.3) gm/dl Albumin (3.4-5.0) gm/dl Globulin (2.5-4.0) gm/dl Albumin/Globulin Ratio (0.9-2) Stl C. cayetanensis PCR (NotDetected) Stool Rotavirus A PCR (NotDetected) Stl Adenov F 40/41 PCR (NotDetected) Stool Astrovirus (PCR) (NotDetected) Stool Campylobacter PCR (NotDetected) Stool Cryptosporidium PCR (NotDetected) Stl E.coli Shiga Tox PCR (NotDetected) Stl Enterotoxigenic E PCR (NotDetected) Stool EPEC (PCR) (NotDetected) Stool EAEC (PCR) (NotDetected) Stl E. histolytica PCR (NotDetected) Stool Giardia Lamblia PCR (NotDetected) Stool Salmonella PCR (NotDetected) Stool Sapovirus (PCR) (NotDetected) Stl P. shigelloides PCR (NotDetected) Stl Shigella/EIEC PCR (NotDetected) St Y.enterocolitica PCR (NotDetected) Stool Vibrio (PCR) (NotDetected) Stl Vibrio cholerae PCR (NotDetected) Stl Norovirus GI/GII PCR (NotDetected) Adenovirus (PCR) (NotDetected) B. pertussis DNA (PCR) (NotDetected) B.parapertussis DNA PCR (NotDetected) C. pneumoniae DNA (PCR) (NotDetected) Coronavirus OC43 (PCR) (NotDetected) Coronavirus HKU1 (PCR) (NotDetected) Coronavirus 229E (PCR) (NotDetected) SARS-CoV-2 (PCR) (NotDetected) Coronavirus NL63 (PCR) (NotDetected) Human Metapneumovir PCR (NotDetected) Influenza Type A (PCR) (NotDetected) Influenza Type B (PCR) (NotDetected) M. pneumoniae (PCR) (NotDetected) Parainfluenza 1 (PCR) (NotDetected) Parainfluenza 2 (PCR) (NotDetected) Parainfluenza 3 (PCR) (NotDetected) Parainfluenza 4 (PCR) (NotDetected) RSV (PCR) (NotDetected) Entero/Rhino (PCR) (NotDetected) Medications Administered Current Inpatient Medications Acetaminophen (Acetaminophen 325 Mg Tab) 650 mg PO Q4H PRN PRN Reason: Pain or Fever Stop: 11/18/22 08:30 Albuterol (Albut/Ipratrop 3mg/0.5mg Neb 3 Ml Vial) 3 ml NEB Q4R PRN; Protocol PRN Reason: shortness of breath Stop: 12/13/22 19:26 Guaifenesin (Guaifenesin 600 Mg Tabcr) 600 mg PO Q12 LARA Stop: 12/13/22 20:59 Last Admin: 11/15/22 08:43 Dose: 600 mg Heparin Sodium (Porcine) (Heparin Sod 5,000 Unit/0.5 Ml Vial) 5,000 units SQ Q12 LARA Stop: 12/14/22 13:59 Last Admin: 11/15/22 08:43 Dose: 5,000 units Piperacillin Sod/Tazobactam (Sod 4.5 gm/ Dextrose) 120 mls @ 30 mls/hr IV Q8H LARA; Protocol Stop: 11/21/22 02:29 Last Infusion: 11/15/22 07:45 Dose: Infused Azithromycin 500 mg/ Dextrose 255 mls @ 125 mls/hr IV DAILY LARA Stop: 11/20/22 19:44 Last Admin: 11/15/22 08:42 Dose: 125 mls/hr Pantoprazole Sodium 40 mg/ (Syringe) 10 mls @ 5 mls/min IV BID LARA Stop: 12/15/22 10:14 Lactobacillus Acidophilus (Advanced Probiotic 1250 Mg Capsule) 2 cap PO DAILY LARA Stop: 12/14/22 17:29 Last Admin: 11/15/22 08:42 Dose: 2 cap Olanzapine (Olanzapine 5 Mg Tablet) 5 mg PO HS [facility] Stop: 12/13/22 20:59 Last Admin: 11/14/22 20:34 Dose: 5 mg Ondansetron HCl (Ondansetron Inj 2 Mg/Ml 2 Ml Vial) 4 mg IV Q6H PRN PRN Reason: Nausea Stop: 12/13/22 19:26 Potassium Phosphate (Pot Phosphate Monobasic W/ Sod Tab) 2 tab PO QID LARA Stop: 12/15/22 12:59 Trazodone HCl (Trazodone Hcl 100 Mg Tab) 100 mg PO HS [facility] Stop: 12/13/22 20:59 Last Admin: 11/14/22 20:33 Dose: 100 mg
[2022-11-15] MEDS: PANTOprazole 40 MG in SYRINGE 0 ML IV SCH ×2 (11:20→21:09)
[2022-11-15] MEDS: ACETAMINOPHEN 325 MG TAB PO PRN ×2 (11:53→23:27)
--- NOTE | 2022-11-15 12:09 | Magnetic Resonance Report ---
MRCP CLINICAL HISTORY: Sepsis. Elevated hepatic transaminases. COMPARISON STUDY: Abdominal CT dated 11/13/2022. Abdominal ultrasound dated 11/14/2022. TECHNIQUE: Abdominal MRCP is performed utilizing various T2-weighted sequences in the axial and coron al planes. IV contrast was not measured for this examination. 3-D reformats are created and assessed. The examination is degraded by motion artifact. FINDINGS: The gallbladder is normal in appearance. No gallstones are seen. There is no intra or extrahepatic bi liary ductal dilatation. The common bile duct measures up to 3 mm in diameter. There are no intralumi nal filling defects to suggest choledocholithiasis. The pancreatic duct is normal in caliber. The unenhanced liver, spleen, adrenal glands, pancreas, and kidneys are grossly normal. The abdominal aorta is normal in caliber. There is no bowel obstruction. No abdominal ascites is seen. There is no upper abdominal lymphadenopathy. Airspace consolidation is seen at the right lung base with a trace right pleural effusion. IMPRESSION: 1. Normal MRCP. 2. Right basilar consolidation is typical for pneumonia. Dictated: 11/15/2022 11:29 AM Transcribed: 11/15/2022 11:46 AM Cleve [id number] LORENA_Kendall [id number] Electronically signed by: Orion Perez M.D. 11/15/2022 12:07 PM
[2022-11-15] MEDS ORDERED: IBUPROFEN 200 MG TAB PO STA (12:25)
[2022-11-15] MEDS ORDERED: POTASSIUM CHLORIDE CRTAB 20 MEQ TABCR PO STA (12:25)
--- NOTE | 2022-11-15 12:25 | Electrocardiogram Report ---
Test Reason : Blood Pressure : / mmHG Vent. Rate : 098 BPM Atrial Rate : 098 BPM P-R Int : 158 ms QRS Dur : 090 ms QT Int : 344 ms P-R-T Axes : 057 051 066 degrees QTc Int : 439 ms Normal sinus rhythm T wave abnormality, consider lateral ischemia Abnormal ECG No previous ECGs available Confirmed by Vicente Jenkins ([id number]) on 11/15/2022 12:25:28 PM Referred By: [facility] Confirmed By:Vicente Jenkins
--- NOTE | 2022-11-15 12:55 | Electrocardiogram Report ---
Test Reason : Blood Pressure : / mmHG Vent. Rate : 098 BPM Atrial Rate : 098 BPM P-R Int : 162 ms QRS Dur : 080 ms QT Int : 330 ms P-R-T Axes : 067 075 079 degrees QTc Int : 421 ms Normal sinus rhythm Septal infarct , age undetermined Abnormal ECG When compared with ECG of 13-NOV-2022 18:27, (unconfirmed) Septal infarct is now Present Nonspecific T wave abnormality has replaced inverted T waves in Lateral leads Confirmed by Vicente Jenkins ([id number]) on 11/15/2022 12:54:59 PM Referred By: [facility] Confirmed By:Vicente Jenkins
--- NOTE | 2022-11-15 13:15 | Pulmonary Consultation ---
Date of Consultation November 15, 2022 Assessment & Plan (1) Acute respiratory failure with hypoxia: (2) Pneumonia: (3) Sepsis: Sepsis acute organ dysfunction status: without acute organ dysfunction Sepsis type: sepsis due to unspecified organism Qualified Code(s): A41.9 - Sepsis, unspecified organism Plan CT abdomen pelvis 11/13/2022 shows dense consolidative process in the right lower lobe -- Right lower lobe pneumonia Respiratory BioFire negative for everything including COVID-19 PCR Nasal MRSA negative -- COPD Approximately 43-[id number]-unps smoking history Quit at the age of 37 Encouraged to continue abstinence from smoking Plan: QTc 421, I will change antibiotic to levofloxacin to be used on a daily basis for [address] chest to look at the lung parenchyma It is not unusual for patient to spike high-grade fever with bad pneumonia. Patient is not able to bring up sputum. Would recommend to induce sputum. Case discussed with Dr. Razo Please note the above document was generated using voice recognition software. It may contain grammatical, syntax or spelling errors.Any formal questions or concerns about the content, text or information contained within the body of this dictation should be directly addressed to the provider for clarification. History of Present Illness Attending Physician: Ty Razo MD History of Present Illness 47-year-old male admitted to the hospital because of fever and weakness Past medical history: Anxiety/depression Pulmonary consulted for abnormal chest x-ray and persistent fever Correction guards were in the room at the time of examination. Patient in the he has been having fever and chills which has been going on for the last 3 or 4 days. He was complaining of dysuria as well. Denies any significant abdominal pain. Occasional diarrhea. He does complain of pain on the right side in the right upper quadrant whenever he takes deep breath in. Denies any cough, does not bring up any phlegm Pleuritic chest pain as discussed above. Spiking high fevers along with chills No headache, no blurry vision No nausea or vomiting Social history: Approximately 95-ovqy-dign smoking history, quit at the age of [age], used to work in construction. No history of lung cancer in the family Allergies Allergy/AdvReac Type Severity Reaction Status Date / Time No Known Allergies Allergy Unverified 11/13/22 17:27 Home Medications Medication Instructions Recorded Confirmed Type olanzapine 5 mg tablet 5 mg PO HS 11/13/22 11/13/22 History trazodone 100 mg tablet 100 mg PO HS 11/13/22 11/13/22 History Patient History Medical History Mood disorder Surgical History No significant past surgical history Family History (Updated 11/13/22 @ 18:18 by TANYA Armendariz) Father Diabetes Social History Smoking Status: Former smoker Hx Alcohol Use: No Hx Substance Use: No Preferred Language: Icelandic Communication Ability: Effective Flake Cutter Operator Required: No Beliefs That Will Affect Care: None Current Living Situation: Other Current Living Situation Comment: [facility] Feels Safe at Home: Yes Safety Concerns: Feels Safe At This Time Assistive Devices: None Review of Systems Review of Systems: All systems reviewed & are unremarkable except as noted in HPI & below Physical Exam Physical Exam: Constitutional: No acute distress HEENT: EOMI, PERRLA Respiratory system: Decreased air entry bilaterally, positive crackles bilateral lower lobes more on the right side, no wheeze, no rhonchi CVS: S1-S2 positive, no murmurs or gallops Abdomen: Soft, nontender, nondistended, positive bowel sounds x4 Extremities: +2 pulses bilaterally radialis/ dorsalis pedis, no cyanosis, no edema Neuro: Awake alert oriented x3 Psych: Normal mood and affect G/U: No [place]nes Skin: no rashes, warm and dry Lymphatic: no cervical or axillary lymphadenopathy Results & Data Results & Data Vital Signs (Past 12 Hours) Vital Signs Temp Pulse Resp BP Pulse Ox O2 Del Method 11/15/22 12:47 38.5 C H 11/15/22 11:46 39.4 C H 105 H 18 121/74 91 Room Air 11/15/22 08:00 Room Air 11/15/22 07:51 38.0 C H 94 H 18 116/74 90 Room Air 11/15/22 03:19 37.4 C 93 H 114/74 91 Room Air Laboratory Results 11/15/22 05:28 11/15/22 05:28 PG Care Time/CCT Total # of Minutes Spent Total Time Spent with Patient: Total time spent is greater than 50% in coordination of care (as documented) at patient's floor/unit and/or counseling patient: Coding Level of Care Code 37849 INT INP/OBS CARE 75MIN Diagnoses Acute respiratory failure with hypoxia J96.01 Pneumonia J18.9 Sepsis A41.9 Sepsis acute organ dysfunction status: without acute organ dysfunction Sepsis type: sepsis due to unspecified organism
--- NOTE | 2022-11-15 14:17 | History & Physical Bridge Note ---
Date of Service November 15, 2022 History & Physical Bridge Note I have examined the patient, reviewed the History & Physical and in the interval since the performance of the History & Physical I have noted the following changes of clinical significance: no changes noted. The patient presented with coughing and shortness of breath and has elevated liver enzymes. He has had several imaging studies which were negative however given his persistent bilirubin elevation an EUS and possible ERCP have been requested. We have discussed the risks and benefits of upper endoscopy, endoscopic ultrasound and potential for ERCP. These risks include, bleeding, infection, perforation, pain, failed biliary cannulation and need for follow-up studies.
[2022-11-15] MEDS ORDERED: INDOMETHACIN 50 MG SUPP PR ONE (14:26)
[2022-11-15] MEDS ORDERED: fentaNYL citrate PF 100 MCG/2 ML VIAL IV PRN (14:35)
[2022-11-15] MEDS ORDERED: ONDANSETRON INJ 2 MG/ML 2 ML VIAL IV PRN (14:35)
[2022-11-15] MEDS ORDERED: ATROPINE SULFATE 0.1 MG/ML 10ML SYR IV PRN (14:35)
[2022-11-15] MEDS ORDERED: ePHEDrine sulfate 50 MG/ML AMP IV PRN (14:35)
--- NOTE | 2022-11-15 14:35 | Anesthesiology Consultation ---
Date of Service November 15, 2022 Assessment & Plan Chart Review Chart Review: Acceptable Risk for Surgery and Patient NOT seen in Pre Admission Testing Consults Requested none ASA ASA3 Proposed Anesthesia Anesthesia Type: MAC Risk / Benefits Reviewed With: PT / POA / Parent / Guardian, Accepts Plan and Informed Consent Obtained History Surgery Operation Date: 11/15/22 11:40 Proposed Procedures p Endoscopic Ultrasonography Upper - Donaldo Lema DO s Endoscopic Retrograde Cholangiopancreatogram - Donaldo Lema DO Height/Weight Height: 6 ft 3 in Weight: 117.9 kg Allergies Allergy/AdvReac Type Severity Reaction Status Date / Time No Known Allergies Allergy Unverified 11/13/22 17:27 Medications Home Medications Medication Instructions Recorded Confirmed Last Taken olanzapine 5 mg tablet 5 mg PO HS 11/13/22 11/13/22 Unknown trazodone 100 mg tablet 100 mg PO HS 11/13/22 11/13/22 Unknown Active Medications Generic Name Dose Route Start Last Admin Trade Name Freq PRN Reason Stop Dose Admin Acetaminophen 650 mg 11/15/22 08:31 11/15/22 11:53 Acetaminophen 325 Mg Tab PO 11/18/22 08:30 650 mg Q4H PRN Administration Pain or Fever Guaifenesin 600 mg 11/13/22 21:00 11/15/22 08:43 Guaifenesin 600 Mg Tabcr PO 12/13/22 20:59 600 mg Q12 LARA Administration Heparin Sodium (Porcine) 5,000 units 11/14/22 14:00 11/15/22 08:43 Heparin Sod 5,000 Unit/0.5 Ml Vial SQ 12/14/22 13:59 5,000 units Q12 LARA Administration Piperacillin Sod/Tazobactam 120 mls @ 30 mls/hr 11/14/22 02:30 11/15/22 11:52 Sod 4.5 gm/ Dextrose IV 11/21/22 02:29 30 mls/hr Q8H LARA Administration Protocol Pantoprazole Sodium 40 mg/ 10 mls @ 5 mls/min 11/15/22 10:15 11/15/22 11:20 Syringe IV 12/15/22 10:14 5 mls/min BID LARA Administration Lactobacillus Acidophilus 2 cap 11/14/22 17:30 11/15/22 08:42 Advanced Probiotic 1250 Mg Capsule PO 12/14/22 17:29 2 cap DAILY LARA Administration Olanzapine 5 mg 11/13/22 21:00 11/14/22 20:34 Olanzapine 5 Mg Tablet PO 12/13/22 20:59 5 mg HS LARA Administration Potassium Phosphate 2 tab 11/15/22 13:00 11/15/22 12:10 Pot Phosphate Monobasic W/ Sod Tab PO 12/15/22 12:59 2 tab QID LARA Administration Trazodone HCl 100 mg 11/13/22 21:00 11/14/22 20:33 Trazodone Hcl 100 Mg Tab PO 12/13/22 20:59 100 mg HS LARA Administration NPO Date Last Intake of Fluids: 11/15/22 Time Last Intake of Fluids: 09:00 Last Intake of Fluids Comment: [email or web address] Last Intake of Solids Comment: Unknown. Pt reports he has not eaten in weeks. Past Medical History Medical History Mood disorder Exercise / Class Metabolic Activity II 4-5 Yardwork/Stairs/Walk up hill Past Family History Family History (Updated 11/13/22 @ 18:18 by TANYA Armendariz) Father Diabetes Past Surgical History Surgical History No significant past surgical history Past Anesthesia History No Hx of Anesthesia Complications and No Family Hx of Anesthesia Complications History of PONV No Hx of PONV and No Hx of Motion Sickness Social History Smoking Status: Former smoker Hx Alcohol Use: No Hx Substance Use: No substance use type: does not use Physical Exam Vital Signs Last Vital Signs Temp 37.4 C 11/15/22 14:10 Pulse 101 H 11/15/22 14:10 Resp 20 11/15/22 14:10 BP 112/70 11/15/22 14:10 Pulse Ox 95 11/15/22 14:10 O2 Del Method Room Air 11/15/22 14:10 O2 Flow Rate 3 11/15/22 13:50 Constitutional + obese ENMT Mouth: no dentition abnormality Thyromental Distance: > or= 3.5 Finger Breadths Mallampati Class: II Neck normal visual inspection Respiratory normal respiratory effort Auscultation: lungs clear to auscultation bilaterally Cardiovascular Rate/Rhythm: regular rate and regular rhythm Psychiatric Orientation: alert Testing Laboratory Results 11/15/22 05:28 11/15/22 05:28 Urine Color Dodge 11/13/22 16:55 Urine Appearance Cloudy (Clear) A 11/13/22 16:55 Urine pH 5.5 (4.5-7.5) 11/13/22 16:55 Ur Specific Philipp 1.030 (1.000-1.030) 11/13/22 16:55 Urine Protein 2+ (Negative) H 11/13/22 16:55 Urine Glucose (UA) Negative (Negative) 11/13/22 16:55 Urine Ketones 1+ (Negative) H 11/13/22 16:55 Urine Nitrite Positive (Negative) A 11/13/22 16:55 Ur Leukocyte Esterase Trace (Negative) H 11/13/22 16:55 Urine WBC (Auto) 5-10 /hpf (0-5) H 11/13/22 16:55 Urine RBC (Auto) 0-4 /hpf (0-4) 11/13/22 16:55 U Hyaline Cast (Auto) 1-5 /lpf (0-5) 11/13/22 16:55 U Epithel Cells (Auto) >30 /lpf (0-5) H 11/13/22 16:55 Urine Bacteria (Auto) Negative (Negative) 11/13/22 16:55 11/13/22 16:55 Urine Culture - Final Urine,Clean Catch No growth - less than 1,000 colonies/mL. 11/13/22 15:45 Aerobic Blood Culture - Preliminary Blood No growth in Aerobic bottle after 24 hours. Anaerobic Blood Culture - Preliminary No growth in Anaerobic bottle after 24 hours. 11/13/22 15:55 Aerobic Blood Culture - Preliminary Blood No growth in Aerobic bottle after 24 hours. Anaerobic Blood Culture - Preliminary No growth in Anaerobic bottle after 24 hours. 11/15/22 11/15/22 11:48 07:50 POC Glucose 109 H 85
[2022-11-15] MEDS ORDERED: DEXAMETHASONE SOD INJ 4 MG/ML VIAL ONE (14:41)
[2022-11-15] MEDS ORDERED: PROPOFOL IV EMULSION 10 MG/ML 20 ML VIAL IV ONE ×2 (14:41→15:05)
[2022-11-15] MEDS ORDERED: ONDANSETRON INJ 2 MG/ML 2 ML VIAL ONE (14:41)
[2022-11-15] MEDS ORDERED: fentaNYL citrate PF 100 MCG/2 ML VIAL ONE (14:42)
[2022-11-15] MEDS ORDERED: MIDAZOLAM HCL 1 MG/ML 2ML VIAL ONE (14:42)
[2022-11-15] MEDS ORDERED: KETAMINE 50 MG/5 ML SYRINGE ONE (14:59)
[2022-11-15] MEDS ORDERED: SUCCINYLCHOLINE CHLORIDE 20 MG/ML 10 ML VIAL IV ONE (15:04)
[2022-11-15] MEDS ORDERED: ROCURONIUM BROMIDE 10 MG/ML 5 ML VIAL IV ONE (15:04)
--- NOTE | 2022-11-15 15:21 | GI REPORT ---
Patient Name: Ezequiel Khan Procedure Date: 11/15/2022 2:34 PM Date of : 1975 Admit Type: Inpatient Age: 47 Gender: Male Attending MD: Donaldo Lema DO, Procedure: Upper GI endoscopy Providers: Donaldo Lema DO Referring MD: Ty Reyes Md Indications: Epigastric abdominal pain Medicines: General Anesthesia Complications: No immediate complications. Estimated blood loss: Minimal. Estimated Blood Loss: Estimated blood loss was minimal. Procedure: Pre-Anesthesia Assessment: - Prior to the procedure, a History and Physical was performed, and patient medications, allergies and sensitivities were reviewed. The patient's tolerance of previous anesthesia was reviewed. - The risks and benefits of the procedure and the sedation options and risks were discussed with the patient. All questions were answered and informed consent was obtained. - Patient identification and proposed procedure were verified prior to the procedure by the physician, the nurse and the press machine operator. The procedure was verified in the procedure room. - Pre-procedure physical examination revealed no contraindications to sedation. - ASA Grade Assessment: III - A patient with severe systemic disease. - After reviewing the risks and benefits, the patient was deemed in satisfactory condition to undergo the procedure. - The anesthesia plan was to use general anesthesia. - Immediately prior to administration of medications, the patient was re-assessed for adequacy to receive sedatives. - The heart rate, respiratory rate, oxygen saturations, blood pressure, adequacy of pulmonary ventilation, and response to care were monitored throughout the procedure. - The physical status of the patient was re-assessed after the procedure. After obtaining informed consent, the endoscope was passed under direct vision. Throughout the procedure, the patient's blood pressure, pulse, and oxygen saturations were monitored continuously. The Endoscope was introduced through the mouth, and advanced to the second part of duodenum. The upper GI endoscopy was accomplished without difficulty. The patient tolerated the procedure well. Findings: The examined esophagus was normal. The Z-line was regular and was found 40 cm from the incisors. Many non-bleeding, serpenitine like, superficial gastric ulcers of mild severity with no stigmata of bleeding were found in the gastric body and in the gastric antrum. Biopsies were taken with a cold forceps for histology. The pathology specimen was placed into Bottle A. Estimated blood loss was minimal. The examined duodenum was normal. Impression: - Normal esophagus. - Z-line regular, 40 cm from the incisors. - Non-obstructing non-bleeding gastric ulcers with no stigmata of bleeding. Biopsied. - Normal examined duodenum. Recommendation: - Perform an upper endoscopic ultrasound (UEUS) today. - Await pathology results. - Omeprazole 40 mg per day for 12 weeks - Repeat EGD for surveillance in 12 - 18 weeks. Donaldo Lema D.O. Donaldo Lema, 11/15/2022 3:21:37 PM This report has been signed electronically. Note Initiated On: 11/15/2022 2:34 PM Number of Addenda: 0 I attest to the content of the Intraoperative Record and orders documented therein, exceptions below {[id number]}
--- NOTE | 2022-11-15 15:26 | GI REPORT ---
Patient Name: Ezequiel Khan Procedure Date: 11/15/2022 2:37 PM Date of : 1975 Admit Type: Inpatient Age: 47 Gender: Male Attending MD: Donaldo Lema DO, Procedure: Upper EUS Providers: Donaldo Lema DO Referring MD: Ty Reyes Md Indications: Elevated liver enzymes Medicines: General Anesthesia Complications: No immediate complications. Estimated blood loss: Minimal. Estimated Blood Loss: Estimated blood loss was minimal. Procedure: Pre-Anesthesia Assessment: - Prior to the procedure, a History and Physical was performed, and patient medications, allergies and sensitivities were reviewed. The patient's tolerance of previous anesthesia was reviewed. - The risks and benefits of the procedure and the sedation options and risks were discussed with the patient. All questions were answered and informed consent was obtained. - Patient identification and proposed procedure were verified prior to the procedure by the physician, the nurse and the cocktail lounge manager. The procedure was verified in the procedure room. - Pre-procedure physical examination revealed no contraindications to sedation. - ASA Grade Assessment: III - A patient with severe systemic disease. - After reviewing the risks and benefits, the patient was deemed in satisfactory condition to undergo the procedure. - The anesthesia plan was to use general anesthesia. - Immediately prior to administration of medications, the patient was re-assessed for adequacy to receive sedatives. - The heart rate, respiratory rate, oxygen saturations, blood pressure, adequacy of pulmonary ventilation, and response to care were monitored throughout the procedure. - The physical status of the patient was re-assessed after the procedure. After obtaining informed consent, the endoscope was passed under direct vision. Throughout the procedure, the patient's blood pressure, pulse, and oxygen saturations were monitored continuously. The Endosonoscope was introduced through the mouth, and advanced to the second part of duodenum. The upper EUS was accomplished without difficulty. The patient tolerated the procedure well. Findings: ENDOSONOGRAPHIC FINDING: : There was no sign of significant endosonographic abnormality in the ampulla. No masses were identified. There was no sign of significant endosonographic abnormality in the common bile duct. The maximum diameter of the duct was 3 mm. No stones, no biliary sludge and ducts of normal caliber were identified. There was no sign of significant endosonographic abnormality in the gallbladder. No calcifications, no stones, no biliary sludge and ducts of normal caliber were identified. There was no sign of significant endosonographic abnormality in the visualized portion of the liver. Homogeneous parenchyma and no focal pathology were identified. No lymphadenopathy seen. There was no sign of significant endosonographic abnormality in the left adrenal gland. No adrenal gland enlargement was identified. Pancreatic parenchymal abnormalities were noted in the entire pancreas. These consisted of lobularity without honeycombing. Impression: - There was no sign of significant pathology in the ampulla. - There was no sign of significant pathology in the common bile duct. - There was no sign of significant pathology in the gallbladder. - There was no evidence of significant pathology in the visualized portion of the liver. - Endosonographic images of the left adrenal gland were unremarkable. - Pancreatic parenchymal abnormalities consisting of lobularity were noted in the entire pancreas. - No specimens collected. Recommendation: - Return patient to hospital blank for ongoing care. - Elevated liver tests likely related to right lower lobe pneumonia, no obvious biliary finding seen today. Donaldo Lema D.O. Donaldo Lema, 11/15/2022 3:25:53 PM This report has been signed electronically. Note Initiated On: 11/15/2022 2:37 PM Number of Addenda: 0 I attest to the content of the Intraoperative Record and orders documented therein, exceptions below {[id number]}
--- NOTE | 2022-11-15 15:27 | Post Operative Brief Note ---
Immediate Post Op Note v1 Date of Surgery November 15, 2022 Pre & Post Diagnosis Operation Date: 11/15/22 11:40 Pre-Op Diagnosis: SEPSIS, UTI, PNEUMONIA Post-Op Diagnosis: SEPSIS, UTI, PNEUMONIA I identified the patient and participated in the time-out.: Yes Procedure Operation Date: 11/15/22 11:40 Actual Procedures p Endoscopic Ultrasonography Upper(Not Applicable) - Donaldo Lema DO Surgeon Donaldo Lema, Director Utilization Management none Estimated Blood Loss 0 Findings See Below (multiple superficial gastric ulcers, normal appearing gallbladder and CBD)
--- NOTE | 2022-11-15 15:28 | Communication Note ---
Date of Service: November 15, 2022 The patient underwent upper endoscopy and endoscopic ultrasound this afternoon. The patient's upper endoscopy was notable for multiple superficial appearing gastric ulcers in the and antrum. Several biopsies were performed. The patient's endoscopic ultrasound was notable for a normal-appearing common bile duct and gallbladder. Given this and the history of a right lower lobe pneumonia ERCP was not performed today. Recommendations Continue antibiotic coverage for pneumonia Omeprazole or Protonix 40 mg daily for 12 weeks Repeat upper endoscopy in 3 to 4 months Please call with any questions or concerns
--- NOTE | 2022-11-15 15:30 | Anesthesiology Progress Note ---
Date of Service November 15, 2022 Anesthesia Post Procedure Vital Signs Vital Signs: Temp Pulse Pulse Pulse Resp BP Pulse Ox 11/15/22 14:10 37.4 C 101 H 20 112/70 95 11/15/22 13:50 94 11/15/22 13:35 38.7 C H 20 88 L 11/15/22 12:47 38.5 C H 94 11/15/22 11:46 39.4 C H 105 H 18 121/74 91 11/15/22 08:00 11/15/22 07:51 38.0 C H 94 H 18 116/74 90 11/15/22 03:19 37.4 C 93 H 114/74 91 11/15/22 00:46 37.7 C H 11/15/22 00:00 112 H 11/14/22 23:32 38.4 C H 98 H 22 111/67 94 11/14/22 20:00 11/14/22 19:59 37.3 C 96 H 22 121/74 91 11/14/22 17:00 39.2 C H O2 Del Method O2 Flow Rate 11/15/22 14:10 Room Air 11/15/22 13:50 Nasal Cannula 3 11/15/22 13:35 Room Air 11/15/22 12:47 Room Air 11/15/22 11:46 Room Air 11/15/22 08:00 Room Air 11/15/22 07:51 Room Air 11/15/22 03:19 Room Air 11/15/22 00:46 11/15/22 00:00 11/14/22 23:32 Room Air 11/14/22 20:00 Room Air 11/14/22 19:59 Room Air 11/14/22 17:00 Transfer of Care Handoff Completed per policy Notes Mental Status: alert / awake / arousable Patient Amnestic to Procedure: Yes Nausea / Vomiting: adequately controlled Pain: adequately controlled Airway Patency, RR, SpO2: stable & adequate BP & HR: stable & adequate Hydration State: stable & adequate Anesthetic Complications: no major complications apparent
[2022-11-15] MEDS: levoFLOXacin/D5W 750 MG/150 ML BAG IV SCH (16:12)
--- NOTE | 2022-11-15 16:13 | CT Scan Report ---
CT chest diagnostic wo con CT DOSE: 621.64 mGy.cm HISTORY: Shortness of breath. Follow-up Right lower lobe pneumonia TECHNIQUE: Multiaxial CT images of the chest were performed without contrast. A dose lowering techni que was utilized adhering to the principles of ALARA. COMPARISON: Abdomen and pelvis CT 11/13/2022. FINDINGS: The central airways are patent. No pneumothorax. There is a trace right pleural effusion. D ense consolidation throughout the majority of the right lower lobe with associated air bronchograms. This favors a pneumonia. No cavitary foci identified. Small linear densities within the left lung pos teriorly favor dependent change/atelectasis. No suspicious lytic or blastic osseous lesions. Limited views of the upper abdomen demonstrate a normal liver, spleen, and adrenal glands. There is a trace p ericardial effusion. The cardiac silhouette is top normal in size. Normal caliber esophagus. Subcarin al and right hilar lymphadenopathy is noted. This is indeterminate but likely reactive. The dominant subcarinal lymph node measures 1.5 cm in short axis diameter. No left hilar lymphadenopathy. Normal c aliber thoracic aorta. Mild coronary artery calcifications are noted. IMPRESSION: 1. Dense consolidation throughout the majority of the right lower lobe with associated air bronchogra ms. This likely represents a pneumonia. Follow-up recommended to ensure complete resolution. 2. Mild right hilar and subcarinal lymphadenopathy. This is likely reactive. Attention at follow-up r ecommended. 3. There is a trace right parapneumonic effusion and a trace pericardial effusion. ACT 112: Negative or not required by law. Electronically signed by: Vicente Stern M.D. 11/15/2022 4:11 PM
[2022-11-15] MEDS: DOXYCYCLINE HYCLATE 100 MG in DEXTROSE 5% 100 ML IV SCH ×2 (18:06→23:27)
[2022-11-15] MEDS: OLANZapine 5 MG TABLET PO SCH (21:10)
[2022-11-15] MEDS: traZODone HCL 100 MG TAB PO SCH (21:10)
[2022-11-16] MEDS: ACETAMINOPHEN 325 MG TAB PO PRN ×2 (04:20→09:09)
[2022-11-16] MEDS: PIPERACILLIN/TAZOBACTAM 4.5 GM in DEXTROSE 5% 100 ML IV SCH ×2 (04:20→11:22)
[2022-11-16 06:26] LABS: Hematocrit (blood only) 30.8 % (42.0-52.0); Hemoglobin 10.6 g/dl (14.0-18.0); Mean Corpuscular Hemoglobin 30.6 pg (25.0-34.0); Mean Corpuscular Hgb Conc 34.4 g/dL (32.0-36.0); Mean Platelet Volume 10.4 fL (9.4-12.4); Platelet Count 183 K/uL (130-400); RDW Coefficient of Variation 13.6 % (11.5-14.5); RDW Standard Deviation 44.3 fL (36.4-46.3); Red Blood Count 3.46 M/uL (4.70-6.10); White Blood Count 6.66 K/ul (4.8-10.8)
[2022-11-16 06:41] LABS: Albumin Level 2.9 gm/dl (3.4-5.0); Bilirubin,Total 1.5 mg/dl (0.2-1.0); Calcium 7.3 mg/dl (8.6-10.3); Creatinine Clr Calc Pharmacy 92.3 ml/min; Est GFR (African American) 71.6 ml/min; Est GFR (Non-African American) 61.8 ml/min; Globulin 2.8 gm/dl (2.5-4.0); Magnesium 2.2 mg/dl (1.7-2.4); Phosphorus 2.1 mg/dl (2.5-4.9); Potassium 3.2 mmol/L (3.5-5.1); Total Protein 5.7 gm/dl (6.0-8.3)
[2022-11-16] MEDS ORDERED: POTASSIUM CHLORIDE CRTAB 20 MEQ TABCR PO STA ×2 (07:39→08:35)
--- NOTE | 2022-11-16 07:39 | Hospitalist Progress Note ---
Date of Service November 16, 2022 Assessment & Plan (1) Severe sepsis: (2) UTI (urinary tract infection): (3) Pneumonia: Plan: Patient presenting from [facility] for evaluation of fever, weakness, nausea/vomit., diarrhea In the ED, febrile 39.5 C, tachycardic 110's, WBC 12.9 K, lactate 2.3. BP normal. CT ABD/pelvis negative for acute abdominal findings however noted right basilar consolidation Blood cultx, urine cultx, sputum cultx - ordered Blood cultx - negat. so far Resp. biofire negative Legionella Ag - Positive -discussed w/ lab and notified [facility] - requested lab results to be faxed them - Huan will fax Stool PCR - negative Received cefepime in the ED, then cont. with IV Zosyn + Azithromycin -> switch to Levaquin MRSA nasal swab - negative lactate trended down Follow blood, urine, sputum cultures Pulmonary toilet with nebs, Mucinex, incentive spirometer, flutter valve Discussed w/ pulm. medicine - switch to Levaquin (4) Elevated LFTs: Plan: T. bili 3.3, AST 113, ALT 99, alk phos 55 Patient denies history of liver disease - likely secondary to sepsis, legionella infection - hepatitis panel - negative CT abd./pelvis negative for intraabd.pathology - RUQ US obtained - Gallbladder: The gallbladder is normally distended with no visible gallstones. The wall thickness is normal measuring 2 mm. Sonographic Whitley sign is negative. IMPRESSION: No acute findings in the right upper quadrant. - GI consulted - MRCP and EUS obtained, ERCP was not needed Impression: - There was no sign of significant pathology in the ampulla. - There was no sign of significant pathology in the common bile duct. - There was no sign of significant pathology in the gallbladder. - There was no evidence of significant pathology in the visualized portion of the liver. - Endosonographic images of the left adrenal gland were unremarkable. - Pancreatic parenchymal abnormalities consisting of lobularity were noted in the entire pancreas. - No specimens collected. Recommendation: - Return patient to hospital blank for ongoing care. - Elevated liver tests likely related to right lower lobe pneumonia, no obvious biliary finding seen today. (5) MARTÍN (acute kidney injury): Plan: Creatinine 1.6, unknown baseline however patient denies history of kidney disease Likely MARTÍN due to sepsis, now down to 1.3 IVF, follow renal functions (6) Acute electrocardiogram changes: Plan: EKG shows T wave inversion in the lateral leads No reports of chest pain on admission May be due to electrolyte abnormality and/or tachycardia troponin obtained 54 -> 35 (likely secondary to sepsis, tachycardia) -monitor closely on telemetry (7) Hypokalemia: (8) Hypomagnesemia: Plan: K+ 3.2, Mg +1.4 Replete, and monitor (9) Diarrhea: Plan: Checked stool studies, as above (10) Mood disorder: Plan: Continue olanzapine and trazodone DVT ppx- heparin subq Admission and Anticipated Discharge Date Admission Date: November 13, 2022 Subjective Pt seen in follow up of sepsis, fever, pna in no acute distress, ambulating to bathroom On admission denied any cough, now says that has frequent cough, sputum cultx obtained today Reports upper abd. discomfort Legionella urine Ag - positive - discussed w/ lab and notified [facility] - requested lab results to be faxed them - Huan will fax Continues to have diarrhea stool pcr negative Today advanced diet for the first time Continues to be febrile, and feeling weak. Review of Systems Review of Systems: All systems reviewed & are unremarkable except as noted in Subjective Physical Exam Physical Exam: Constitutional:L WD/WN, in no acute distress Eyes: PERRL, EOMI conjun ctivae normal, ani cteric sclerae ENMT: external ear and n ose normal, oropha rynx normal Respiratory: normal respiratory effort; no respir atory distress Au scultation: + rhon chi (Right base) Cardiovascular:L + mildly tachycard ic Vessels: celia l peripheral pulse s Extremities: no edema Gastrointestinal ( Abdomen): + abdomen distend ed and normal sukhi l sounds, soft; a bdomen nontender Musculoskeletal: moves extremities Skin: no rashes, warm an d dry Neurologic: PERRL, EOMI, no fa ce palsy, no dysar thria, moves extre mities Psychiatric: A+Ox3, euthymic af fect Results & Data Results & Data Vital Signs (Past 12 Hours) Vital Signs Temp Pulse Resp BP Pulse Ox O2 Del Method 11/16/22 04:02 38.5 C H 95 H 19 110/69 90 Room Air 11/15/22 23:16 39.5 C H 106 H 18 124/74 90 Room Air 11/15/22 21:25 Room Air 11/15/22 19:51 37.6 C H 91 H 17 130/93 93 Room Air Laboratory Results 11/16/22 11/16/22 11/15/22 Range/Units 05:46 05:46 20:00 WBC 6.66 (4.8-10.8) K/ul RBC 3.46 L (4.70-6.10) M/uL Hgb 10.6 L (14.0-18.0) g/dl Hct 30.8 L (42.0-52.0) % MCV 89.0 (80.0-100.0) fL MCH 30.6 (25.0-34.0) pg MCHC 34.4 (32.0-36.0) g/dL RDW Std Deviation 44.3 (36.4-46.3) fL RDW Coeff of Sandeep 13.6 (11.5-14.5) % Plt Count 183 (130-400) K/uL MPV 10.4 (9.4-12.4) fL Sodium 135 L (136-145) mmol/L Potassium 3.2 L (3.5-5.1) mmol/L Chloride 103 (98-107) mmol/L Carbon Dioxide 23 (21-32) mmol/L Anion Gap 9 (3-11) BUN 12 (6-23) mg/dl Creatinine 1.34 (0.6-1.4) mg/dl Est Cr Clr Drug Dosing 92.3 ml/min Est GFR ( Amer) 71.6 ml/min Est GFR (Non-Af Amer) 61.8 ml/min BUN/Creatinine Ratio 9.0 L (10-20) Glucose 105 H (70-99(Fasting)) mg/dl POC Glucose 93 (70-99) mg/dl Calcium 7.3 L (8.6-10.3) mg/dl Phosphorus 2.1 L (2.5-4.9) mg/dl Magnesium 2.2 (1.7-2.4) mg/dl Total Bilirubin 1.5 H (0.2-1.0) mg/dl Direct Bilirubin (0-0.2) mg/dl AST 55 H (13-39) U/L ALT 42 (7-52) U/L Alkaline Phosphatase 48 (34-104) U/L Total Protein 5.7 L (6.0-8.3) gm/dl Albumin 2.9 L (3.4-5.0) gm/dl Globulin 2.8 (2.5-4.0) gm/dl Albumin/Globulin Ratio 1.0 (0.9-2) Procalcitonin (0-0.5) ng/ml 11/15/22 11/15/22 11/15/22 Range/Units 17:23 11:48 07:50 WBC (4.8-10.8) K/ul RBC (4.70-6.10) M/uL Hgb (14.0-18.0) g/dl Hct (42.0-52.0) % MCV (80.0-100.0) fL MCH (25.0-34.0) pg MCHC (32.0-36.0) g/dL RDW Std Deviation (36.4-46.3) fL RDW Coeff of Sandeep (11.5-14.5) % Plt Count (130-400) K/uL MPV (9.4-12.4) fL Sodium (136-145) mmol/L Potassium (3.5-5.1) mmol/L Chloride (98-107) mmol/L Carbon Dioxide (21-32) mmol/L Anion Gap (3-11) BUN (6-23) mg/dl Creatinine (0.6-1.4) mg/dl Est Cr Clr Drug Dosing ml/min Est GFR ( Amer) ml/min Est GFR (Non-Af Amer) ml/min BUN/Creatinine Ratio (10-20) Glucose (70-99(Fasting)) mg/dl POC Glucose 109 H 85 (70-99) mg/dl Calcium (8.6-10.3) mg/dl Phosphorus (2.5-4.9) mg/dl Magnesium (1.7-2.4) mg/dl Total Bilirubin (0.2-1.0) mg/dl Direct Bilirubin (0-0.2) mg/dl AST (13-39) U/L ALT (7-52) U/L Alkaline Phosphatase (34-104) U/L Total Protein (6.0-8.3) gm/dl Albumin (3.4-5.0) gm/dl Globulin (2.5-4.0) gm/dl Albumin/Globulin Ratio (0.9-2) Procalcitonin 3.29 H (0-0.5) ng/ml 11/15/22 Range/Units 05:28 WBC (4.8-10.8) K/ul RBC (4.70-6.10) M/uL Hgb (14.0-18.0) g/dl Hct (42.0-52.0) % MCV (80.0-100.0) fL MCH (25.0-34.0) pg MCHC (32.0-36.0) g/dL RDW Std Deviation (36.4-46.3) fL RDW Coeff of Sandeep (11.5-14.5) % Plt Count (130-400) K/uL MPV (9.4-12.4) fL Sodium (136-145) mmol/L Potassium (3.5-5.1) mmol/L Chloride (98-107) mmol/L Carbon Dioxide (21-32) mmol/L Anion Gap (3-11) BUN (6-23) mg/dl Creatinine (0.6-1.4) mg/dl Est Cr Clr Drug Dosing ml/min Est GFR ( Amer) ml/min Est GFR (Non-Af Amer) ml/min BUN/Creatinine Ratio (10-20) Glucose (70-99(Fasting)) mg/dl POC Glucose (70-99) mg/dl Calcium (8.6-10.3) mg/dl Phosphorus (2.5-4.9) mg/dl Magnesium (1.7-2.4) mg/dl Total Bilirubin (0.2-1.0) mg/dl Direct Bilirubin 1.3 H (0-0.2) mg/dl AST (13-39) U/L ALT (7-52) U/L Alkaline Phosphatase (34-104) U/L Total Protein (6.0-8.3) gm/dl Albumin (3.4-5.0) gm/dl Globulin (2.5-4.0) gm/dl Albumin/Globulin Ratio (0.9-2) Procalcitonin (0-0.5) ng/ml Medications Administered Current Inpatient Medications Acetaminophen (Acetaminophen 325 Mg Tab) 650 mg PO Q4H PRN PRN Reason: Pain or Fever Stop: 11/18/22 08:30 Last Admin: 11/16/22 04:20 Dose: 650 mg Albuterol (Albut/Ipratrop 3mg/0.5mg Neb 3 Ml Vial) 3 ml NEB Q4R PRN; Protocol PRN Reason: shortness of breath Stop: 12/13/22 19:26 Guaifenesin (Guaifenesin 600 Mg Tabcr) 600 mg PO Q12 LARA Stop: 12/13/22 20:59 Last Admin: 11/15/22 21:09 Dose: 600 mg Heparin Sodium (Porcine) (Heparin Sod 5,000 Unit/0.5 Ml Vial) 5,000 units SQ Q12 LARA Stop: 12/14/22 13:59 Last Admin: 11/15/22 21:10 Dose: 5,000 units Piperacillin Sod/Tazobactam (Sod 4.5 gm/ Dextrose) 120 mls @ 30 mls/hr IV Q8H LARA; Protocol Stop: 11/21/22 02:29 Last Admin: 11/16/22 04:20 Dose: 30 mls/hr Pantoprazole Sodium 40 mg/ (Syringe) 10 mls @ 5 mls/min IV BID LARA Stop: 12/15/22 10:14 Last Admin: 11/15/22 21:09 Dose: 5 mls/min Doxycycline Hyclate 100 mg/ (Dextrose) 110 mls @ 50 mls/hr IV Q12H LARA Stop: 11/22/22 12:29 Last Infusion: 11/16/22 01:42 Dose: Infused Levofloxacin/Dextrose (Levaquin/D5w) 750 mg in 150 mls @ 100 mls/hr IV Q24H LARA Stop: 11/20/22 13:59 Last Infusion: 11/15/22 17:46 Dose: Infused Lactobacillus Acidophilus (Advanced Probiotic 1250 Mg Capsule) 2 cap PO DAILY LARA Stop: 12/14/22 17:29 Last Admin: 11/15/22 08:42 Dose: 2 cap Olanzapine (Olanzapine 5 Mg Tablet) 5 mg PO HS LARA Stop: 12/13/22 20:59 Last Admin: 11/15/22 21:10 Dose: 5 mg Ondansetron HCl (Ondansetron Inj 2 Mg/Ml 2 Ml Vial) 4 mg IV Q6H PRN PRN Reason: Nausea Stop: 12/13/22 19:26 Potassium Phosphate (Pot Phosphate Monobasic W/ Sod Tab) 2 tab PO QID [facility] Stop: 12/15/22 12:59 Last Admin: 11/15/22 21:09 Dose: 2 tab Trazodone HCl (Trazodone Hcl 100 Mg Tab) 100 mg PO HS [facility] Stop: 12/13/22 20:59 Last Admin: 11/15/22 21:10 Dose: 100 mg
[2022-11-16] MEDS: PANTOprazole 40 MG in SYRINGE 0 ML IV SCH ×2 (08:24→20:52)
[2022-11-16] MEDS: HEPARIN SOD 5,000 UNIT/0.5 ML VIAL SQ SCH ×2 (08:25→20:52)
--- NOTE | 2022-11-16 08:26 | Gastroenterology Progress Note ---
Date of Service November 16, 2022 Assessment & Plan (1) Elevated liver enzymes: Plan: 47 year old male admitted with sepsis, PNA and elevated LFTs s/p EGD/EUSmultiple superficial appearing gastric ulcers, EUS w/ normal-appearing common bile duct and gallbladder - Continue antibiotic coverage for pneumonia - Omeprazole or Protonix 40 mg daily for 12 weeks - Repeat upper endoscopy in 3 to 4 months - Can continue to trend LFTs - No plan for ERCP evaluation given negative EUS and downtrending LFTs - Please call with any questions or concerns Recall as needed.Thank you for allowing us to participate in the care of this patient. Please call with any acute changes, questions or concerns. Please see addendum below with additional recommendation from my supervising physician. Admission and Anticipated Discharge Date Admission Date: November 13, 2022 Supervising Physician Co-Signing Physician Notes I have personally seen and examined the patient with TANYA Pack. Her note reflects my exam and findings. I agree with her impression and plan. Consider testing for other infectious entities. Amado Tse M.D. Subjective S/P EGD/EUS ERCP not indicated given negative EUS LFTs improving EUS 2022: - There was no sign of significant pathology in the ampulla. - There was no sign of significant pathology in the common bile duct. - There was no sign of significant pathology in the gallbladder. - There was no evidence of significant pathology in the visualized portion of the liver. - Endosonographic images of the left adrenal gland were unremarkable. - Pancreatic parenchymal abnormalities consisting of lobularity were noted in the entire pancreas. - No specimens collected. EGD 2022: - Normal esophagus. - Z-line regular, 40 cm from the incisors. - Non-obstructing non-bleeding gastric ulcers with no stigmata of bleeding. Biopsied. - Normal examined duodenum. Review of Systems Review of Systems: All systems reviewed & are unremarkable except as noted in HPI & below Physical Exam Constitutional: WD/WN, vitals as above Respiratory: normal respiratory effort, lungs clear to auscultation Cardiovascular: Rate/Rhythm: regular rate and regular rhythm Gastrointestinal (Abdomen): normal bowel sounds, soft, nontender, no hepatosplenomegaly Skin: no rashes, warm and dry Results & Data Vital Signs (Past 12 Hours) Vital Signs Temp Pulse Resp BP Pulse Ox O2 Del Method 11/16/22 08:10 37.9 C H 92 H 20 128/81 91 Room Air 11/16/22 04:02 38.5 C H 95 H 19 110/69 90 Room Air 11/15/22 23:16 39.5 C H 106 H 18 124/74 90 Room Air 11/15/22 21:25 Room Air Laboratory Results 11/16/22 11/16/22 11/16/22 Range/Units 07:53 05:46 05:46 WBC 6.66 (4.8-10.8) K/ul RBC 3.46 L (4.70-6.10) M/uL Hgb 10.6 L (14.0-18.0) g/dl Hct 30.8 L (42.0-52.0) % MCV 89.0 (80.0-100.0) fL MCH 30.6 (25.0-34.0) pg MCHC 34.4 (32.0-36.0) g/dL RDW Std Deviation 44.3 (36.4-46.3) fL RDW Coeff of Sandeep 13.6 (11.5-14.5) % Plt Count 183 (130-400) K/uL MPV 10.4 (9.4-12.4) fL Sodium 135 L (136-145) mmol/L Potassium 3.2 L (3.5-5.1) mmol/L Chloride 103 (98-107) mmol/L Carbon Dioxide 23 (21-32) mmol/L Anion Gap 9 (3-11) BUN 12 (6-23) mg/dl Creatinine 1.34 (0.6-1.4) mg/dl Est Cr Clr Drug Dosing 92.3 ml/min Est GFR ( Amer) 71.6 ml/min Est GFR (Non-Af Amer) 61.8 ml/min BUN/Creatinine Ratio 9.0 L (10-20) Glucose 105 H (70-99(Fasting)) mg/dl POC Glucose 98 (70-99) mg/dl Calcium 7.3 L (8.6-10.3) mg/dl Phosphorus 2.1 L (2.5-4.9) mg/dl Magnesium 2.2 (1.7-2.4) mg/dl Total Bilirubin 1.5 H (0.2-1.0) mg/dl Direct Bilirubin (0-0.2) mg/dl AST 55 H (13-39) U/L ALT 42 (7-52) U/L Alkaline Phosphatase 48 (34-104) U/L Total Protein 5.7 L (6.0-8.3) gm/dl Albumin 2.9 L (3.4-5.0) gm/dl Globulin 2.8 (2.5-4.0) gm/dl Albumin/Globulin Ratio 1.0 (0.9-2) Procalcitonin (0-0.5) ng/ml 11/15/22 11/15/22 11/15/22 Range/Units 20:00 17:23 11:48 WBC (4.8-10.8) K/ul RBC (4.70-6.10) M/uL Hgb (14.0-18.0) g/dl Hct (42.0-52.0) % MCV (80.0-100.0) fL MCH (25.0-34.0) pg MCHC (32.0-36.0) g/dL RDW Std Deviation (36.4-46.3) fL RDW Coeff of Sandeep (11.5-14.5) % Plt Count (130-400) K/uL MPV (9.4-12.4) fL Sodium (136-145) mmol/L Potassium (3.5-5.1) mmol/L Chloride (98-107) mmol/L Carbon Dioxide (21-32) mmol/L Anion Gap (3-11) BUN (6-23) mg/dl Creatinine (0.6-1.4) mg/dl Est Cr Clr Drug Dosing ml/min Est GFR ( Amer) ml/min Est GFR (Non-Af Amer) ml/min BUN/Creatinine Ratio (10-20) Glucose (70-99(Fasting)) mg/dl POC Glucose 93 109 H (70-99) mg/dl Calcium (8.6-10.3) mg/dl Phosphorus (2.5-4.9) mg/dl Magnesium (1.7-2.4) mg/dl Total Bilirubin (0.2-1.0) mg/dl Direct Bilirubin (0-0.2) mg/dl AST (13-39) U/L ALT (7-52) U/L Alkaline Phosphatase (34-104) U/L Total Protein (6.0-8.3) gm/dl Albumin (3.4-5.0) gm/dl Globulin (2.5-4.0) gm/dl Albumin/Globulin Ratio (0.9-2) Procalcitonin 3.29 H (0-0.5) ng/ml 11/15/22 Range/Units 05:28 WBC (4.8-10.8) K/ul RBC (4.70-6.10) M/uL Hgb (14.0-18.0) g/dl Hct (42.0-52.0) % MCV (80.0-100.0) fL MCH (25.0-34.0) pg MCHC (32.0-36.0) g/dL RDW Std Deviation (36.4-46.3) fL RDW Coeff of Sandeep (11.5-14.5) % Plt Count (130-400) K/uL MPV (9.4-12.4) fL Sodium (136-145) mmol/L Potassium (3.5-5.1) mmol/L Chloride (98-107) mmol/L Carbon Dioxide (21-32) mmol/L Anion Gap (3-11) BUN (6-23) mg/dl Creatinine (0.6-1.4) mg/dl Est Cr Clr Drug Dosing ml/min Est GFR ( Amer) ml/min Est GFR (Non-Af Amer) ml/min BUN/Creatinine Ratio (10-20) Glucose (70-99(Fasting)) mg/dl POC Glucose (70-99) mg/dl Calcium (8.6-10.3) mg/dl Phosphorus (2.5-4.9) mg/dl Magnesium (1.7-2.4) mg/dl Total Bilirubin (0.2-1.0) mg/dl Direct Bilirubin 1.3 H (0-0.2) mg/dl AST (13-39) U/L ALT (7-52) U/L Alkaline Phosphatase (34-104) U/L Total Protein (6.0-8.3) gm/dl Albumin (3.4-5.0) gm/dl Globulin (2.5-4.0) gm/dl Albumin/Globulin Ratio (0.9-2) Procalcitonin (0-0.5) ng/ml
[2022-11-16] MEDS: POT PHOSPHATE MONOBASIC W/ SOD TAB PO SCH ×4 (08:27→20:52)
[2022-11-16] MEDS: guaiFENesin 600 MG TABCR PO SCH ×2 (08:27→20:51)
[2022-11-16] MEDS: ADVANCED PROBIOTIC 1250 MG CAPSULE PO SCH (08:27)
[2022-11-16] MEDS ORDERED: POTASSIUM PHOS 3 MMOL/1 ML INFUSION IV STA (08:34)
--- NOTE | 2022-11-16 08:35 | Pulmonology Progress Note ---
Date of Service November 16, 2022 Assessment & Plan (1) Acute respiratory failure with hypoxia: (2) Pneumonia: (3) Sepsis: Sepsis acute organ dysfunction status: without acute organ dysfunction Sepsis type: sepsis due to unspecified organism Qualified Code(s): A41.9 - Sepsis, unspecified organism (4) COPD with emphysema: (5) Pleuritic chest pain: Plan CT chest 11/15/2022 personally reviewed: Paraseptal emphysema appreciated bilaterally more on the right side, dense consolidative process appreciated in the right lower lobe with air bronchograms Mediastinal lymphadenopathy especially station 7 -- Right lower lobe pneumonia Urine Legionella positive Patient likely has Legionella pneumonia LFTs were elevated secondary to the above as well Respiratory BioFire negative for everything including COVID-19 PCR Nasal MRSA negative Procalcitonin 3.29 It is not unusual for patient to spike high-grade fever with severe pneumonia. Legionella is usually waterborne/air conditioner/water retainers. I would recommend infectious control to get involved to see if any intervention is needed at the residential -- COPD with emphysema Not on any inhalers at home Plan: C/w levofloxacin to be used on a daily basis for 14 days. DC Zosyn Start patient on Incruse to be used on a daily basis Keep K>4. Being replaced right now. Repeat BMP later today. Patient is not able to bring up sputum. Would recommend to induce sputum. Continue with incentive spirometry and flutter valve. Pain medication for the right-sided pleuritic chest pain Case discussed with Dr. Razo as well as RN at bedside Please note the above document was generated using voice recognition software. It may contain grammatical, syntax or spelling errors.Any formal questions or concerns about the content, text or information contained within the body of t his dictation should be directly addressed to the provider for clarification. Admission and Anticipated Discharge Date Admission Date: November 13, 2022 Subjective Patient seen and examined at bedside. No acute distress, no adverse events overnight Still spiking high fevers Still complains of pain in the right lower side of the chest as well as in the right upper quadrant Whitley sign is negative No nausea vomiting, fair appetite Not bringing up any phlegm. Review of Systems Review of Systems: All systems reviewed & are unremarkable except as noted in Subjective Physical Exam Physical Exam: Constitutional: No acute distress HEENT: EOMI, PERRLA Respiratory system: Decreased air entry bilaterally, positive crackles bilateral lower lobes more on the right side, no wheeze, no rhonchi CVS: S1-S2 positive, no murmurs or gallops Abdomen: Soft, nontender, nondistended, positive bowel sounds x4 Extremities: +2 pulses bilaterally radialis/ dorsalis pedis, no cyanosis, no edema Neuro: Awake alert oriented x3 Psych: Normal mood and affect G/U: No Haynes Skin: no rashes, warm and dry Lymphatic: no cervical or axillary lymphadenopathy Results & Data Results & Data Vital Signs (Past 12 Hours) Vital Signs Temp Pulse Resp BP Pulse Ox O2 Del Method 11/16/22 08:10 37.9 C H 92 H 20 128/81 91 Room Air 11/16/22 04:02 38.5 C H 95 H 19 110/69 90 Room Air 11/15/22 23:16 39.5 C H 106 H 18 124/74 90 Room Air 11/15/22 21:25 Room Air Laboratory Results 11/16/22 05:46 11/16/22 05:46 PG Care Time/CCT Total # of Minutes Spent Total Time Spent with Patient: Total time spent is greater than 50% in coordination of care (as documented) at patient's floor/unit and/or counseling patient: Coding Level of Care Code 76961 SUB INP/OBS CARE 3/50MIN Diagnoses Acute respiratory failure with hypoxia J96.01 Pneumonia J18.9 Sepsis A41.9 Sepsis acute organ dysfunction status: without acute organ dysfunction Sepsis type: sepsis due to unspecified organism COPD with emphysema J43.9 Pleuritic chest pain R07.81
[2022-11-16] MEDS ORDERED: POTASSIUM PHOSPHATE 21 MMOL in SODIUM CHLORIDE 0.9% 500 ML IV ONE (08:45)
[2022-11-16] MEDS: UMECLIDINIUM BROMIDE 62.5MCG/BLISTER 7 PUFFS/INHALER INH SCH (09:10)
[2022-11-16 10:17] LABS: HBSAG NON-REACTIVE (NON-REACTIVE); Hepatitis A Antibody IgM NON-REACTIVE (NON-REACTIVE); Hepatitis B Core Antibody IgM NON-REACTIVE (NON-REACTIVE)
[2022-11-16] MEDS ORDERED: MoRPHine SULFATE 2 MG/ML CARP IV PRN (12:20)
[2022-11-16] MEDS: ACETAMINOPHEN 1,000 MG/100 ML VIAL IV PRN (12:57)
[2022-11-16] MEDS: DOXYCYCLINE HYCLATE 100 MG in DEXTROSE 5% 100 ML IV SCH (13:00)
[2022-11-16] MEDS: levoFLOXacin/D5W 750 MG/150 ML BAG IV SCH (14:30)
[2022-11-16] MEDS: IBUPROFEN 800 MG TAB PO PRN (17:49)
[2022-11-16 17:57] LABS: BUN Creatinine Ratio 8.6 (10-20); Calcium 7.6 mg/dl (8.6-10.3); Creatinine Clr Calc Pharmacy 81.4 ml/min; Est GFR (African American) 61.5 ml/min; Phosphorus 2.6 mg/dl (2.5-4.9); Potassium 3.7 mmol/L (3.5-5.1)
[2022-11-16] MEDS: traZODone HCL 100 MG TAB PO SCH (20:51)
[2022-11-16] MEDS: OLANZapine 5 MG TABLET PO SCH (20:51)
[2022-11-17] MEDS: DOXYCYCLINE HYCLATE 100 MG in DEXTROSE 5% 100 ML IV SCH ×2 (00:05→12:12)
[2022-11-17 06:32] LABS: Hematocrit (blood only) 33.5 % (42.0-52.0); Hemoglobin 11.3 g/dl (14.0-18.0); Mean Corpuscular Hemoglobin 30.8 pg (25.0-34.0); Mean Corpuscular Hgb Conc 33.7 g/dL (32.0-36.0); Mean Corpuscular Volume 91.3 fL (80.0-100.0); Mean Platelet Volume 10.4 fL (9.4-12.4); Platelet Count 201 K/uL (130-400); RDW Coefficient of Variation 13.7 % (11.5-14.5); RDW Standard Deviation 46.7 fL (36.4-46.3); Red Blood Count 3.67 M/uL (4.70-6.10); White Blood Count 8.92 K/ul (4.8-10.8)
[2022-11-17 06:41] LABS: Albumin Level 2.9 gm/dl (3.4-5.0); BUN Creatinine Ratio 10.4 (10-20); Bilirubin,Total 1.2 mg/dl (0.2-1.0); Calcium 7.5 mg/dl (8.6-10.3); Creatinine Clr Calc Pharmacy 85.9 ml/min; Est GFR (African American) 65.6 ml/min; Est GFR (Non-African American) 56.6 ml/min; Globulin 2.9 gm/dl (2.5-4.0); Magnesium 2.3 mg/dl (1.7-2.4); Phosphorus 2.4 mg/dl (2.5-4.9); Potassium 3.7 mmol/L (3.5-5.1); Total Protein 5.8 gm/dl (6.0-8.3)
[2022-11-17] MEDS: ADVANCED PROBIOTIC 1250 MG CAPSULE PO SCH (08:02)
[2022-11-17] MEDS: POT PHOSPHATE MONOBASIC W/ SOD TAB PO SCH ×3 (08:03→16:13)
[2022-11-17] MEDS: UMECLIDINIUM BROMIDE 62.5MCG/BLISTER 7 PUFFS/INHALER INH SCH (08:03)
[2022-11-17] MEDS: HEPARIN SOD 5,000 UNIT/0.5 ML VIAL SQ SCH ×2 (08:03→20:41)
[2022-11-17] MEDS: guaiFENesin 600 MG TABCR PO SCH ×2 (08:03→20:40)
[2022-11-17] MEDS ORDERED: POTASSIUM CHLORIDE CRTAB 20 MEQ TABCR PO STA ×2 (09:02→17:39)
[2022-11-17] MEDS ORDERED: POTASSIUM PHOS 3 MMOL/1 ML INFUSION IV STA ×2 (09:02→17:41)
--- NOTE | 2022-11-17 09:04 | Pulmonology Progress Note ---
Date of Service November 17, 2022 Assessment & Plan (1) Acute respiratory failure with hypoxia: (2) Pneumonia: (3) Sepsis: Sepsis acute organ dysfunction status: without acute organ dysfunction Sepsis type: sepsis due to unspecified organism Qualified Code(s): A41.9 - Sepsis, unspecified organism (4) COPD with emphysema: (5) Pleuritic chest pain: Plan CT chest 11/15/2022 personally reviewed: Paraseptal emphysema appreciated bilaterally more on the right side, dense consolidative process appreciated in the right lower lobe with air bronchograms Mediastinal lymphadenopathy especially station 7 -- Right lower lobe pneumonia Urine Legionella positive Patient likely has Legionella pneumonia LFTs were elevated secondary to the above as well Respiratory BioFire negative for everything including COVID-19 PCR Nasal MRSA negative Procalcitonin 3.29 It is not unusual for patient to spike high-grade fever with severe pneumonia. Legionella is usually waterborne/air conditioner/water retainers. I would recommend infectious control to get involved to see if any intervention is needed at the [facility] -- COPD with emphysema Not on any inhalers at home Plan: C/w levofloxacin to be used on a daily basis for 10 days Continue with Incruse to be used on a daily basis Keep K>4. Being replaced right now. Patient's QTc is 524 today. Hold olanzapine as well as trazodone. Potassium and phosphorus being replaced. Repeat EKG and BMP later today Continue with incentive spirometry and flutter valve. Pain medication for the right-sided pleuritic chest pain Case discussed with Dr. Razo as well as RN at bedside Please note the above document was generated using voice recognition software. It may contain grammatical, syntax or spelling errors.Any formal questions or concerns about the content, text or information contained within the body of this dictation should be directly addressed to the provider for clarification. Admission and Anticipated Discharge Date Admission Date: November 13, 2022 Subjective Patient seen and examined at bedside. No acute distress, no adverse events overnight. Was saturating 92-93% on room air The chest pain is better controlled right now. Still complains of mild pain on deep breath Not bringing up any phlegm Has been still spiking fever. No nausea or vomiting, fair appetite Review of Systems Review of Systems: All systems reviewed & are unremarkable except as noted in Subjective Physical Exam Physical Exam: Constitutional: No acute distress HEENT: EOMI, PERRLA Respiratory system: Decreased air entry bilaterally, positive crackles bilateral lower lobes more on the right side, no wheeze, no rhonchi CVS: S1-S2 positive, no murmurs or gallops Abdomen: Soft, nontender, nondistended, positive bowel sounds x4 Extremities: +2 pulses bilaterally radialis/ dorsalis pedis, no cyanosis, no edema Neuro: Awake alert oriented x3 Psych: Normal mood and affect G/U: No Haynes Skin: no rashes, warm and dry Lymphatic: no cervical or axillary lymphadenopathy Results & Data Results & Data Vital Signs (Past 12 Hours) Vital Signs Temp Pulse Resp BP Pulse Ox O2 Del Method O2 Flow Rate 11/17/22 07:50 38.1 C H 106 H 20 129/74 94 Nasal Cannula 2 11/17/22 04:39 37.8 C H 100 H 16 149/94 H 92 Nasal Cannula 2 11/16/22 23:41 36.6 C 74 17 111/73 98 Nasal Cannula 2 Laboratory Results 11/17/22 05:50 11/17/22 05:50 PG Care Time/CCT Total # of Minutes Spent Total Time Spent with Patient: Total time spent is greater than 50% in coordination of care (as documented) at patient's floor/unit and/or counseling patient: Coding Level of Care Code 98153 SUB INP/OBS CARE 3/50MIN Diagnoses Acute respiratory failure with hypoxia J96.01 Pneumonia J18.9 Sepsis A41.9 Sepsis acute organ dysfunction status: without acute organ dysfunction Sepsis type: sepsis due to unspecified organism COPD with emphysema J43.9 Pleuritic chest pain R07.81
[2022-11-17] MEDS: ACETAMINOPHEN 1,000 MG/100 ML VIAL IV PRN (09:14)
[2022-11-17] MEDS: PANTOprazole 40 MG in SYRINGE 0 ML IV SCH ×2 (09:14→20:37)
[2022-11-17] MEDS ORDERED: POTASSIUM PHOSPHATE 24 MMOL in SODIUM CHLORIDE 0.9% 500 ML IV ONE (09:15)
--- NOTE | 2022-11-17 09:48 | Hospitalist Progress Note ---
Date of Service November 17, 2022 Assessment & Plan (1) Severe sepsis: (2) UTI (urinary tract infection): (3) Pneumonia: Plan: Patient presenting from [facility] for evaluation of fever, weakness, nausea/vomit., diarrhea In the ED, febrile 39.5 C, tachycardic 110's, WBC 12.9 K, lactate 2.3. BP normal. CT ABD/pelvis negative for acute abdominal findings however noted right basilar consolidation Blood cultx, urine cultx, sputum cultx - ordered Blood cultx - negat. so far Resp. biofire negative Legionella Ag - Positive -discussed w/ lab , infection control and notified [facility] Stool PCR - negative Received cefepime in the ED, then cont. with IV Zosyn + Azithromycin -> switch to Levaquin MRSA nasal swab - negative lactate trended down Follow blood, urine, sputum cultures Pulmonary toilet with nebs, Mucinex, incentive spirometer, flutter valve Discussed w/ pulm. medicine - switched to Levaquin (4) Elevated LFTs: Plan: T. bili 3.3, AST 113, ALT 99, alk phos 55 Patient denies history of liver disease - likely secondary to sepsis, legionella infection - hepatitis panel - negative CT abd./pelvis negative for intraabd.pathology - RUQ US obtained - Gallbladder: The gallbladder is normally distended with no visible gallstones. The wall thickness is normal measuring 2 mm. Sonographic Whitley sign is negative. IMPRESSION: No acute findings in the right upper quadrant. - GI consulted - MRCP and EUS obtained, ERCP was not needed Impression: - There was no sign of significant pathology in the ampulla. - There was no sign of significant pathology in the common bile duct. - There was no sign of significant pathology in the gallbladder. - There was no evidence of significant pathology in the visualized portion of the liver. - Endosonographic images of the left adrenal gland were unremarkable. - Pancreatic parenchymal abnormalities consisting of lobularity were noted in the entire pancreas. - No specimens collected. Recommendation: - Return patient to hospital blank for ongoing care. - Elevated liver tests likely related to right lower lobe pneumonia, no obvious biliary finding seen today. Stomach, biopsy: - Chronic focally active gastritis suspicious for Helicobacter infection - Negative for intestinal metaplasia, dysplasia and malignancy Comment: The morphology is suggestive of Helicobacter and there are rare small foci of questionable staining on the immunostain. Clinical correlation required. Discussed w/ GI - recommend to obtain stool antigen , which was ordered. If positive may need ID consult given already treatment for Legionella. (5) MARTÍN (acute kidney injury): Plan: Creatinine 1.6, unknown baseline however patient denies history of kidney disease Likely MARTÍN due to sepsis, now down to 1.3 IVF, follow renal functions (6) Acute electrocardiogram changes: Plan: EKG shows T wave inversion in the lateral leads No reports of chest pain on admission May be due to electrolyte abnormality and/or tachycardia troponin obtained 54 -> 35 (likely secondary to sepsis, tachycardia) -monitor closely on telemetry (7) Hypokalemia: (8) Hypomagnesemia: Plan: K+ 3.2, Mg +1.4 Replete, and monitor (9) Diarrhea: Plan: Checked stool studies, as above (10) Mood disorder: Plan: Continue olanzapine and trazodone DVT ppx- heparin subq Admission and Anticipated Discharge Date Admission Date: November 13, 2022 Subjective Pt seen in follow up of sepsis, fever, pna in no acute distress Feeling better No fever, chills, chest pain, shortness of breath, abd. pain Legionella urine Ag - positive GI pathology - poss. H. pylori - stool antigen ordered Tolerating diet Review of Systems Review of Systems: All systems reviewed & are unremarkable except as noted in Subjective Physical Exam Physical Exam: Constitutional:L WD/WN, in no acute distress Eyes: PERRL, EOMI conjun ctivae normal, ani cteric sclerae ENMT: external ear and n ose normal, oropha rynx normal Respiratory: normal respiratory effort; no respir atory distress Au scultation: + rhon chi (Right base) Cardiovascular:L + mildly tachycard ic Vessels: celia l peripheral pulse s Extremities: no edema Gastrointestinal ( Abdomen): + abdomen distend ed and normal sukhi l sounds, soft; a bdomen nontender Musculoskeletal: moves extremities Skin: no rashes, warm an d dry Neurologic: PERRL, EOMI, no fa ce palsy, no dysar thria, moves extre mities Psychiatric: A+Ox3, euthymic af fect Results & Data Results & Data Vital Signs (Past 12 Hours) Vital Signs Temp Pulse Resp BP Pulse Ox O2 Del Method O2 Flow Rate 11/17/22 07:50 38.1 C H 106 H 20 129/74 94 Nasal Cannula 2 11/17/22 04:39 37.8 C H 100 H 16 149/94 H 92 Nasal Cannula 2 11/16/22 23:41 36.6 C 74 17 111/73 98 Nasal Cannula 2 Laboratory Results 11/17/22 11/17/22 11/16/22 Range/Units 05:50 05:50 17:07 WBC 8.92 (4.8-10.8) K/ul RBC 3.67 L (4.70-6.10) M/uL Hgb 11.3 L (14.0-18.0) g/dl Hct 33.5 L (42.0-52.0) % MCV 91.3 (80.0-100.0) fL MCH 30.8 (25.0-34.0) pg MCHC 33.7 (32.0-36.0) g/dL RDW Std Deviation 46.7 H (36.4-46.3) fL RDW Coeff of Sandeep 13.7 (11.5-14.5) % Plt Count 201 (130-400) K/uL MPV 10.4 (9.4-12.4) fL Sodium 140 138 (136-145) mmol/L Potassium 3.7 3.7 (3.5-5.1) mmol/L Chloride 105 104 (98-107) mmol/L Carbon Dioxide 25 25 (21-32) mmol/L Anion Gap 10 9 (3-11) BUN 15 13 (6-23) mg/dl Creatinine 1.44 H 1.52 H (0.6-1.4) mg/dl Est Cr Clr Drug Dosing 85.9 81.4 ml/min Est GFR ( Amer) 65.6 61.5 ml/min Est GFR (Non-Af Amer) 56.6 53.0 ml/min BUN/Creatinine Ratio 10.4 8.6 L (10-20) Glucose 91 103 H (70-99(Fasting)) mg/dl POC Glucose (70-99) mg/dl Calcium 7.5 L 7.6 L (8.6-10.3) mg/dl Phosphorus 2.4 L 2.6 (2.5-4.9) mg/dl Magnesium 2.3 (1.7-2.4) mg/dl Total Bilirubin 1.2 H (0.2-1.0) mg/dl AST 72 H (13-39) U/L ALT 38 (7-52) U/L Alkaline Phosphatase 55 (34-104) U/L Total Protein 5.8 L (6.0-8.3) gm/dl Albumin 2.9 L (3.4-5.0) gm/dl Globulin 2.9 (2.5-4.0) gm/dl Albumin/Globulin Ratio 1.0 (0.9-2) Hepatitis A IgM Ab (NON-REACTIVE) Hep Bs Antigen (NON-REACTIVE) Hep Bs Ag Confirmation Hep B Core IgM Ab (NON-REACTIVE) Hepatitis C Ab (EIA) (NON-REACTIVE) Hep C Ab Signal/Cutoff (<1.00) Urine Legionella Ag 11/16/22 11/13/22 11/13/22 Range/Units 11:43 16:55 14:12 WBC (4.8-10.8) K/ul RBC (4.70-6.10) M/uL Hgb (14.0-18.0) g/dl Hct (42.0-52.0) % MCV (80.0-100.0) fL MCH (25.0-34.0) pg MCHC (32.0-36.0) g/dL RDW Std Deviation (36.4-46.3) fL RDW Coeff of Sandeep (11.5-14.5) % Plt Count (130-400) K/uL MPV (9.4-12.4) fL Sodium (136-145) mmol/L Potassium (3.5-5.1) mmol/L Chloride (98-107) mmol/L Carbon Dioxide (21-32) mmol/L Anion Gap (3-11) BUN (6-23) mg/dl Creatinine (0.6-1.4) mg/dl Est Cr Clr Drug Dosing ml/min Est GFR ( Amer) ml/min Est GFR (Non-Af Amer) ml/min BUN/Creatinine Ratio (10-20) Glucose (70-99(Fasting)) mg/dl POC Glucose 111 H (70-99) mg/dl Calcium (8.6-10.3) mg/dl Phosphorus (2.5-4.9) mg/dl Magnesium (1.7-2.4) mg/dl Total Bilirubin (0.2-1.0) mg/dl AST (13-39) U/L ALT (7-52) U/L Alkaline Phosphatase (34-104) U/L Total Protein (6.0-8.3) gm/dl Albumin (3.4-5.0) gm/dl Globulin (2.5-4.0) gm/dl Albumin/Globulin Ratio (0.9-2) Hepatitis A IgM Ab NON-REACTIVE (NON-REACTIVE) Hep Bs Antigen NON-REACTIVE (NON-REACTIVE) Hep Bs Ag Confirmation TNP Hep B Core IgM Ab NON-REACTIVE (NON-REACTIVE) Hepatitis C Ab (EIA) NON-REACTIVE (NON-REACTIVE) Hep C Ab Signal/Cutoff 0.06 (<1.00) Urine Legionella Ag SEE NOTE A Medications Administered Current Inpatient Medications Albuterol (Albut/Ipratrop 3mg/0.5mg Neb 3 Ml Vial) 3 ml NEB Q4R PRN; Protocol PRN Reason: shortness of breath Stop: 12/13/22 19:26 Guaifenesin (Guaifenesin 600 Mg Tabcr) 600 mg PO Q12 LARA Stop: 12/13/22 20:59 Last Admin: 11/17/22 08:03 Dose: 600 mg Heparin Sodium (Porcine) (Heparin Sod 5,000 Unit/0.5 Ml Vial) 5,000 units SQ Q12 LARA Stop: 12/14/22 13:59 Last Admin: 11/17/22 08:03 Dose: 5,000 units Pantoprazole Sodium 40 mg/ (Syringe) 10 mls @ 5 mls/min IV BID LARA Stop: 12/15/22 10:14 Last Admin: 11/17/22 09:14 Dose: 5 mls/min Doxycycline Hyclate 100 mg/ (Dextrose) 110 mls @ 50 mls/hr IV Q12H LARA Stop: 11/22/22 12:29 Last Infusion: 11/17/22 02:17 Dose: Infused Levofloxacin/Dextrose (Levaquin/D5w) 750 mg in 150 mls @ 100 mls/hr IV Q24H LARA Stop: 11/29/22 13:59 Last Infusion: 11/16/22 16:24 Dose: Infused Acetaminophen (Ofirmev) 1,000 mg in 100 mls @ 400 mls/hr IV Q8H PRN PRN Reason: Fever Stop: 11/19/22 12:19 Last Admin: 11/17/22 09:14 Dose: 400 mls/hr Potassium Phosphate 24 mmol/ (Sodium Chloride) 508 mls @ 88 mls/hr IV ONE ONE Stop: 11/17/22 15:01 Ibuprofen (Ibuprofen 800 Mg Tab) 800 mg PO Q8H PRN PRN Reason: Fever Stop: 12/16/22 16:57 Last Admin: 11/16/22 17:49 Dose: 800 mg Lactobacillus Acidophilus (Advanced Probiotic 1250 Mg Capsule) 2 cap PO DAILY LARA Stop: 12/14/22 17:29 Last Admin: 11/17/22 08:02 Dose: 2 cap Morphine Sulfate (Morphine Sulfate 2 Mg/Ml Carp) 1 mg IV Q4 PRN PRN Reason: Pain Stop: 11/30/22 12:19 Olanzapine (Olanzapine 5 Mg Tablet) 5 mg PO HS LARA Stop: 12/13/22 20:59 Last Admin: 11/16/22 20:51 Dose: 5 mg Ondansetron HCl (Ondansetron Inj 2 Mg/Ml 2 Ml Vial) 4 mg IV Q6H PRN PRN Reason: Nausea Stop: 12/13/22 19:26 Potassium Phosphate (Pot Phosphate Monobasic W/ Sod Tab) 2 tab PO QID LARA Stop: 12/15/22 12:59 Last Admin: 11/17/22 08:03 Dose: 2 tab Trazodone HCl (Trazodone Hcl 100 Mg Tab) 100 mg PO HS LARA Stop: 12/13/22 20:59 Last Admin: 11/16/22 20:51 Dose: 100 mg Umeclidinium [place] (Umeclidinium [place] 62.5mcg/Blister 7 Puffs/Inhaler) 1 puffs INH DAILY LARA Stop: 12/16/22 08:59 Last Admin: 11/17/22 08:03 Dose: 1 puffs
--- NOTE | 2022-11-17 13:56 | Electrocardiogram Report ---
Test Reason : Blood Pressure : / mmHG Vent. Rate : 088 BPM Atrial Rate : 088 BPM P-R Int : 162 ms QRS Dur : 082 ms QT Int : 442 ms P-R-T Axes : 050 062 070 degrees QTc Int : 534 ms Normal sinus rhythm with sinus arrhythmia Septal infarct (cited on or before 14-NOV-2022) Prolonged QT Abnormal ECG When compared with ECG of 14-NOV-2022 05:45, QT has lengthened Confirmed by Vicente Jenkins ([id number] on 11/17/2022 1:56:42 PM Referred By: [facility] Confirmed By:Vicente Jenkins
[2022-11-17] MEDS: levoFLOXacin/D5W 750 MG/150 ML BAG IV SCH (14:04)
[2022-11-17 15:35] LABS: BUN Creatinine Ratio 10.1 (10-20); Calcium 7.6 mg/dl (8.6-10.3); Est GFR (Non-African American) 54.3 ml/min; Potassium 3.5 mmol/L (3.5-5.1)
[2022-11-17] MEDS: IBUPROFEN 800 MG TAB PO PRN (16:12)
[2022-11-17] MEDS ORDERED: POTASSIUM PHOSPHATE 21 MMOL in SODIUM CHLORIDE 0.9% 500 ML IV ONE (18:00)
[2022-11-17] MEDS ORDERED: POTASSIUM CHLORIDE / WTR 10 MEQ/100 ML PLCT IV SCH ×2 (19:00)
[2022-11-17] MEDS: MAGNESIUM SULFATE / D5W 1 GM/100 ML BAG IV SCH ×2 (20:35→22:04)
[2022-11-18] MEDS: DOXYCYCLINE HYCLATE 100 MG in DEXTROSE 5% 100 ML IV SCH ×2 (01:09→12:13)
[2022-11-18] MEDS: IBUPROFEN 800 MG TAB PO PRN ×2 (04:03→20:32)
[2022-11-18 05:28] LABS: BUN Creatinine Ratio 11.7 (10-20); Calcium 7.4 mg/dl (8.6-10.3); Creatinine Clr Calc Pharmacy 96.6 ml/min; Est GFR (African American) 75.7 ml/min; Est GFR (Non-African American) 65.3 ml/min; Magnesium 2.4 mg/dl (1.7-2.4); Phosphorus 2.3 mg/dl (2.5-4.9); Potassium 4.1 mmol/L (3.5-5.1)
[2022-11-18 05:31] LABS: Hematocrit (blood only) 30.2 % (42.0-52.0); Hemoglobin 10.1 g/dl (14.0-18.0); Mean Corpuscular Hgb Conc 33.4 g/dL (32.0-36.0); Mean Corpuscular Volume 92.6 fL (80.0-100.0); Mean Platelet Volume 10.4 fL (9.4-12.4); Platelet Count 259 K/uL (130-400); RDW Coefficient of Variation 14.1 % (11.5-14.5); RDW Standard Deviation 48.3 fL (36.4-46.3); Red Blood Count 3.26 M/uL (4.70-6.10)
--- NOTE | 2022-11-18 08:10 | XRay Report ---
XR chest 1V portable CLINICAL HISTORY: f/u COMPARISON STUDY: Chest radiograph November 13, 2022. Chest CT November 15, 2022. FINDINGS: There is no pneumothorax. A small to moderate right pleural effusion is increased since pam or chest CT. There is persistent dense right lower lung consolidation. Mild interstitial thickening i s present. Cardiomediastinal silhouette is stable. There may be a trace left pleural effusion. IMPRESSION: 1. Increase in a small to moderate right pleural effusion. 2. Persistent dense right lower lung consolidation suggestive of pneumonia. 3. Pulmonary vascular congestion with possible mild pulmonary edema. ACT 112: Negative or not required by law. Electronically signed by: Albino Macedo M.D. 11/18/2022 8:09 AM
[2022-11-18] MEDS: UMECLIDINIUM BROMIDE 62.5MCG/BLISTER 7 PUFFS/INHALER INH SCH (08:35)
[2022-11-18] MEDS: PANTOprazole 40 MG in SYRINGE 0 ML IV SCH (08:35)
[2022-11-18] MEDS: guaiFENesin 600 MG TABCR PO SCH ×2 (08:35→20:34)
[2022-11-18] MEDS: HEPARIN SOD 5,000 UNIT/0.5 ML VIAL SQ SCH (08:35)
[2022-11-18] MEDS: ADVANCED PROBIOTIC 1250 MG CAPSULE PO SCH (08:36)
[2022-11-18] MEDS ORDERED: POTASSIUM PHOS 3 MMOL/1 ML INFUSION IV STA (08:41)
--- NOTE | 2022-11-18 08:43 | Pulmonology Progress Note ---
Date of Service November 18, 2022 Assessment & Plan (1) Acute respiratory failure with hypoxia: (2) Pneumonia: (3) Sepsis: Sepsis acute organ dysfunction status: without acute organ dysfunction Sepsis type: sepsis due to unspecified organism Qualified Code(s): A41.9 - Sepsis, unspecified organism (4) COPD with emphysema: (5) Pleuritic chest pain: Plan CT chest 11/15/2022 personally reviewed: Paraseptal emphysema appreciated bilaterally more on the right side, dense consolidative process appreciated in the right lower lobe with air bronchograms Mediastinal lymphadenopathy especially station 7 -- Right lower lobe pneumonia Urine Legionella positive Patient likely has Legionella pneumonia LFTs were elevated secondary to the above as well Respiratory BioFire negative for everything including COVID-19 PCR Nasal MRSA negative Procalcitonin 3.29 It is not unusual for patient to spike high-grade fever with severe pneumonia. Legionella is usually waterborne/air conditioner/water retainers. I would recommend infectious control to get involved to see if any intervention is needed at the correction -- COPD with emphysema Not on any inhalers at home Plan: Chest x-ray from today shows worsening right lower lobe infiltrate compared to at the time of presentation which is expected. C/w levofloxacin to be used on a daily basis for 10 days Continue with Incruse to be used on a daily basis Keep K>4, phosphorus greater than 3, magnesium greater than 2. Phosphorus being replaced today QTc 425 today. It has gone down since replacement of potassium. Continue with incentive spirometry and flutter valve. Pain medication for the right-sided pleuritic chest pain Case discussed with RN at bedside Please note the above document was generated using voice recognition software. It may contain grammatical, syntax or spelling errors.Any formal questions or concerns about the content, text or information contained within the body of this dictation should be directly addressed to the provider for clarification. Admission and Anticipated Discharge Date Admission Date: November 13, 2022 Subjective Patient seen and examined at bedside. No acute distress, no adverse events overnight Had only 1 episode of fever 38.6 Overall he says he is feeling better. Coughing up clear phlegm, denies any hemoptysis Chest pain is significantly improved. Fair appetite Still complaining of watery stools Review of Systems Review of Systems: All systems reviewed & are unremarkable except as noted in Subjective Physical Exam Physical Exam: Constitutional: No acute distress HEENT: EOMI, PERRLA Respiratory system: Decreased air entry bilaterally, positive crackles bilateral lower lobes more on the right side, no wheeze, no rhonchi CVS: S1-S2 positive, no murmurs or gallops Abdomen: Soft, nontender, nondistended, positive bowel sounds x4 Extremities: +2 pulses bilaterally radialis/ dorsalis pedis, no cyanosis, no edema Neuro: Awake alert oriented x3 Psych: Normal mood and affect G/U: No Haynes Skin: no rashes, warm and dry Lymphatic: no cervical or axillary lymphadenopathy Results & Data Results & Data Vital Signs (Past 12 Hours) Vital Signs Temp Pulse Pulse Resp BP Pulse Ox O2 Del Method 11/18/22 07:51 Room Air 11/18/22 07:27 36.7 C 81 18 128/76 93 Nasal Cannula 11/18/22 03:46 38.6 C H 109 H 20 115/67 95 Nasal Cannula 11/18/22 00:00 74 11/17/22 23:26 36.7 C 77 20 116/79 95 Room Air O2 Flow Rate 11/18/22 07:51 11/18/22 07:27 1 11/18/22 03:46 2 11/18/22 00:00 11/17/22 23:26 Laboratory Results 11/18/22 04:36 11/18/22 04:36 PG Care Time/CCT Total # of Minutes Spent Total Time Spent with Patient: Total time spent is greater than 50% in coordination of care (as documented) at patient's floor/unit and/or counseling patient: Coding Level of Care Code 62657 SUB INP/OBS CARE 3/50MIN Diagnoses Acute respiratory failure with hypoxia J96.01 Pneumonia J18.9 Sepsis A41.9 Sepsis acute organ dysfunction status: without acute organ dysfunction Sepsis type: sepsis due to unspecified organism COPD with emphysema J43.9 Pleuritic chest pain R07.81
[2022-11-18] MEDS ORDERED: POTASSIUM PHOSPHATE 24 MMOL in SODIUM CHLORIDE 0.9% 500 ML IV ONE (09:00)
--- NOTE | 2022-11-18 10:24 | Electrocardiogram Report ---
Test Reason : Blood Pressure : / mmHG Vent. Rate : 099 BPM Atrial Rate : 099 BPM P-R Int : 160 ms QRS Dur : 086 ms QT Int : 432 ms P-R-T Axes : 046 052 045 degrees QTc Int : 554 ms Poor data quality, interpretation may be adversely affected Normal sinus rhythm Septal infarct (cited on or before 14-NOV-2022) Abnormal ECG When compared with ECG of 17-NOV-2022 04:44, No significant change was found Confirmed by Vicente Jenkins ([id number]) on 11/18/2022 10:24:39 AM Referred By: [facility] Confirmed By:Vicente Jenkins
--- NOTE | 2022-11-18 10:28 | Hospitalist Progress Note ---
Date of Service November 18, 2022 Assessment & Plan (1) Severe sepsis: Plan: 2/2 multiple infections as noted below. (2) Legionella pneumonia: Plan: Patient presenting from [facility] for evaluation of fever, weakness, nausea/vomit., diarrhea In the ED, febrile 39.5 C, tachycardic 110's, WBC 12.9 K, lactate 2.3. BP normal. CT ABD/pelvis negative for acute abdominal findings however noted right basilar consolidation Blood cultx, urine cultx, sputum cultx - ordered Blood cultx - negat. so far Resp. biofire negative Legionella Ag - Positive -discussed w/ lab , infection control and notified [facility] Stool PCR - negative Continue with IV LEvaquin daily. (3) UTI (urinary tract infection): Plan: ruled out (4) Elevated LFTs: Plan: - likely secondary to sepsis, legionella infection - hepatitis panel - negative CT abd./pelvis negative for intraabd.pathology - RUQ US obtained - negative - GI consulted - MRCP and EUS obtained, ERCP was not needed unremarkable aside from lobularity noted to pancreatic tissue. Stomach, biopsy: - Chronic focally active gastritis suspicious for Helicobacter infection - Negative for intestinal metaplasia, dysplasia and malignancy Comment: The morphology is suggestive of Helicobacter and there are rare small foci of questionable staining on the immunostain. Clinical correlation required. Discussed w/ GI - recommend to obtain stool antigen , which was ordered. If positive may need ID consult given already treatment for Legionella. Stool Ag for H pylorir is still pending. (5) MARTÍN (acute kidney injury): Plan: MARTÍN 2/2 sepsis-now creat has returned to his baseline of 1.3. Cont to avoid nephrotoxic substances as able. (6) Diarrhea: Plan: Checked stool studies, as above (7) Mood disorder: Plan: restart olanzapine and cont to hold trazodone DVT ppx- heparin subq Full Code dispo-discharge likely after the weekend Ewa Franco DO [facility] Hospitalist Admission and Anticipated Discharge Date Admission Date: November 13, 2022 Subjective Presented with severe sepsis including GI symptoms, UTI and Legionella pneumonia. Shaking chills today with fever Tolerating PO Denies other pain Reports cough and we discussed getting him some cough syrup and to Discussed the case with pulmonary who has been helping to replete his lytes With QTc normalizing, we agreed to restart his antipsychotic medication Review of Systems Review of Systems: All systems were reviewed and negative except as indicated on HPI above. Physical Exam Physical Exam: CONSTITUTIONAL: WNWD, vitals as above, NAD EYES: normal conjunctivae, no scleral icterus ENT: external ear and nose normal, oropharynx clear NECK: trachea midline RESPIRATORY: clear to auscultation bilaterally, no crackles, rales or wheezes, normal respiratory effort CARDIOVASCULAR: regular rate and rhythm, S1 and 2 heard without murmurs, gallops or rubs, no JVD, no peripheral edema CHEST: inspection of chest was normal GASTROINTESTINAL: soft, nontender, ND, no guarding MUSCULOSKELETAL: strength 5/5 throughout, head is normocephalic and atraumatic SKIN: warm and dry NEUROLOGIC: CN 2-12 grossly intact, no sensory deficit, normal cognition, normal speech, no tremor PSYCHIATRIC: alert cooperative and oriented to person, place and time. Results & Data Results & Data Vital Signs (Past 12 Hours) Vital Signs Temp Pulse Pulse Resp BP Pulse Ox O2 Del Method 11/18/22 07:51 Room Air 11/18/22 07:27 36.7 C 81 18 128/76 93 Nasal Cannula 11/18/22 03:46 38.6 C H 109 H 20 115/67 95 Nasal Cannula 11/18/22 00:00 74 11/17/22 23:26 36.7 C 77 20 116/79 95 Room Air O2 Flow Rate 11/18/22 07:51 11/18/22 07:27 1 11/18/22 03:46 2 11/18/22 00:00 11/17/22 23:26 Laboratory Results Short CBC 11/18/22 Range/Units 04:36 WBC 9.50 (4.8-10.8) K/ul Hgb 10.1 L (14.0-18.0) g/dl Hct 30.2 L (42.0-52.0) % Plt Count 259 (130-400) K/uL BMP 11/17/22 11/18/22 15:06 04:36 Sodium 137 136 Potassium 3.5 4.1 Chloride 105 108 H Carbon Dioxide 26 21 BUN 15 15 Creatinine 1.49 H 1.28 Glucose 112 H 105 H Calcium 7.6 L 7.4 L Diagnostic Findings Chest X-Ray 11/18/22 07:00 XR chest 1V portable CLINICAL HISTORY: f/u COMPARISON STUDY: Chest radiograph November 13, 2022. Chest CT November 15, 2022. FINDINGS: There is no pneumothorax. A small to moderate right pleural effusion is increased since prior chest CT. There is persistent dense right lower lung consolidation. Mild interstitial thickening is present. Cardiomediastinal silhouette is stable. There may be a trace left pleural effusion. IMPRESSION: 1. Increase in a small to moderate right pleural effusion. 2. Persistent dense right lower lung consolidation suggestive of pneumonia. 3. Pulmonary vascular congestion with possible mild pulmonary edema. ACT 112: Negative or not required by law. Electronically signed by: Albino Macedo M.D. 11/18/2022 8:09 AM Medications Administered Current Inpatient Medications Albuterol (Albut/Ipratrop 3mg/0.5mg Neb 3 Ml Vial) 3 ml NEB Q4R PRN; Protocol PRN Reason: shortness of breath Stop: 12/13/22 19:26 Guaifenesin (Guaifenesin 600 Mg Tabcr) 600 mg PO Q12 LARA Stop: 12/13/22 20:59 Last Admin: 11/18/22 08:35 Dose: 600 mg Heparin Sodium (Porcine) (Heparin Sod 5,000 Unit/0.5 Ml Vial) 5,000 units SQ Q12 LARA Stop: 12/14/22 13:59 Last Admin: 11/18/22 08:35 Dose: 5,000 units Pantoprazole Sodium 40 mg/ (Syringe) 10 mls @ 5 mls/min IV BID LARA Stop: 12/15/22 10:14 Last Admin: 11/18/22 08:35 Dose: 5 mls/min Doxycycline Hyclate 100 mg/ (Dextrose) 110 mls @ 50 mls/hr IV Q12H LARA Stop: 11/22/22 12:29 Last Infusion: 11/18/22 03:50 Dose: Infused Levofloxacin/Dextrose (Levaquin/D5w) 750 mg in 150 mls @ 100 mls/hr IV Q24H LARA Stop: 11/29/22 13:59 Last Infusion: 11/17/22 15:52 Dose: Infused Acetaminophen (Ofirmev) 1,000 mg in 100 mls @ 400 mls/hr IV Q8H PRN PRN Reason: Fever Stop: 11/19/22 12:19 Last Infusion: 11/17/22 09:29 Dose: Infused Potassium Phosphate 24 mmol/ (Sodium Chloride) 508 mls @ 88 mls/hr IV ONE ONE Stop: 11/18/22 14:46 Last Admin: 11/18/22 09:45 Dose: 88 mls/hr Ibuprofen (Ibuprofen 800 Mg Tab) 800 mg PO Q8H PRN PRN Reason: Fever Stop: 12/16/22 16:57 Last Admin: 11/18/22 04:03 Dose: 800 mg Lactobacillus Acidophilus (Advanced Probiotic 1250 Mg Capsule) 2 cap PO DAILY LARA Stop: 12/14/22 17:29 Last Admin: 11/18/22 08:36 Dose: 2 cap Morphine Sulfate (Morphine Sulfate 2 Mg/Ml Carp) 1 mg IV Q4 PRN PRN Reason: Pain Stop: 11/30/22 12:19 Olanzapine (Olanzapine 5 Mg Tablet) 5 mg PO HS LARA Stop: 12/13/22 20:59 Last Admin: 11/16/22 20:51 Dose: 5 mg Ondansetron HCl (Ondansetron Inj 2 Mg/Ml 2 Ml Vial) 4 mg IV Q6H PRN PRN Reason: Nausea Stop: 12/13/22 19:26 Trazodone HCl (Trazodone Hcl 100 Mg Tab) 100 mg PO HS LARA Stop: 12/13/22 20:59 Last Admin: 11/16/22 20:51 Dose: 100 mg Umeclidinium [place] (Umeclidinium [place] 62.5mcg/Blister 7 Puffs/Inhaler) 1 puffs INH DAILY LARA Stop: 12/16/22 08:59 Last Admin: 11/18/22 08:35 Dose: 1 puffs
--- NOTE | 2022-11-18 10:57 | Electrocardiogram Report ---
Test Reason : Blood Pressure : / mmHG Vent. Rate : 094 BPM Atrial Rate : 094 BPM P-R Int : 160 ms QRS Dur : 080 ms QT Int : 340 ms P-R-T Axes : 052 043 035 degrees QTc Int : 425 ms Normal sinus rhythm Nonspecific T wave abnormality Abnormal ECG When compared with ECG of 17-NOV-2022 15:45, (unconfirmed) Criteria for Septal infarct are no longer Present Confirmed by Vicente Jenkins ([id number]) on 11/18/2022 10:57:06 AM Referred By: [facility] Confirmed By:Vicente Jenkins
[2022-11-18] MEDS: levoFLOXacin/D5W 750 MG/150 ML BAG IV SCH (14:06)
[2022-11-18] MEDS: ACETAMINOPHEN 1,000 MG/100 ML VIAL IV PRN (14:34)
[2022-11-18] MEDS ORDERED: ACETAMINOPHEN 325 MG TAB PO PRN (17:15)
[2022-11-18] MEDS ORDERED: IBUPROFEN 800 MG TAB PO PRN (17:15)
--- NOTE | 2022-11-18 17:59 | Procedure Note ---
Procedure Note Date of Service November 18, 2022 Note Bedside Ultrasound: Lung: Right:-Dense consolidative process appreciated in the right lower lobe, no pleural effusion Left:-No pleural effusion, B-lines posteriorly, a lines anteriorly Please note the above document was generated using voice recognition software. It may contain grammatical, syntax or spelling errors.Any formal questions or concerns about the content, text or information contained within the body of this dictation should be directly addressed to the provider for clarification. Coding CPT Codes Pulmonary/Thoracic - Pulmonary and Thoracic: 34918 US, Chest, real time with imaging documentation ([id number]) [facility] [place] Procedure Codes (Charges) Pulmonary/Thoracic Procedure 1: Pulmonary and Thoracic: 14819 US, Chest, real time with imaging documentation
[2022-11-18] MEDS ORDERED: PANTOprazole 40 MG TAB PO SCH (21:00)
[2022-11-18] MEDS: OLANZapine 5 MG TABLET PO SCH (21:11)
[2022-11-19 06:34] LABS: Hematocrit (blood only) 30.4 % (42.0-52.0); Mean Corpuscular Hemoglobin 30.9 pg (25.0-34.0); Mean Corpuscular Hgb Conc 32.9 g/dL (32.0-36.0); Mean Corpuscular Volume 93.8 fL (80.0-100.0); Mean Platelet Volume 9.9 fL (9.4-12.4); Platelet Count 321 K/uL (130-400); RDW Coefficient of Variation 14.1 % (11.5-14.5); RDW Standard Deviation 48.4 fL (36.4-46.3); Red Blood Count 3.24 M/uL (4.70-6.10); White Blood Count 10.06 K/ul (4.8-10.8)
[2022-11-19 07:04] LABS: Albumin Level 2.8 gm/dl (3.4-5.0); BUN Creatinine Ratio 13.1 (10-20); Calcium 7.6 mg/dl (8.6-10.3); Creatinine Clr Calc Pharmacy 101.1 ml/min; Est GFR (African American) 80.2 ml/min; Est GFR (Non-African American) 69.2 ml/min; Globulin 2.7 gm/dl (2.5-4.0); Potassium 4.1 mmol/L (3.5-5.1); Total Protein 5.5 gm/dl (6.0-8.3)
[2022-11-19 07:32] LABS: Basophils # (auto) 0.06 K/uL (0-0.2); Basophils % (auto) 0.6 %; Eosinophils # (auto) 0.21 K/uL (0-0.50); Eosinophils % (auto) 2.1 %; Immature Granulocytes # (auto) 0.51 K/uL (0.01-0.20); Immature Granulocytes % (auto) 5.1 %; Lymphocytes # (auto) 1.41 K/uL (1.2-3.4); Monocytes # (auto) 0.88 K/uL (0.11-0.59); Monocytes % (auto) 8.7 %; Neutrophils # (auto) 6.99 K/uL (1.40-6.50); Neutrophils % (auto) 69.5 %; RBC Morphology Unremarkable
--- NOTE | 2022-11-19 08:43 | Pulmonology Progress Note ---
Date of Service November 19, 2022 Assessment & Plan (1) Acute respiratory failure with hypoxia: (2) Pneumonia: (3) Sepsis: Sepsis acute organ dysfunction status: without acute organ dysfunction Sepsis type: sepsis due to unspecified organism Qualified Code(s): A41.9 - Sepsis, unspecified organism (4) COPD with emphysema: (5) Pleuritic chest pain: Plan CT chest 11/15/2022 personally reviewed: Paraseptal emphysema appreciated bilaterally more on the right side, dense consolidative process appreciated in the right lower lobe with air bronchograms Mediastinal lymphadenopathy especially station 7 -- Right lower lobe pneumonia Urine Legionella positive Patient likely has Legionella pneumonia LFTs were elevated secondary to the above as well Respiratory BioFire negative for everything including COVID-19 PCR Nasal MRSA negative Procalcitonin 3.29 It is not unusual for patient to spike high-grade fever with severe pneumonia. Legionella is usually waterborne/air conditioner/water retainers. I would recommend infectious control to get involved to see if any intervention is needed at the snf Repeat CT chest in 6 to 8 weeks to follow-up on the right lower lobe consolidative process -- COPD with emphysema Not on any inhalers at home Bedside ultrasound on 11/18/2022 did not show any right-sided pleural effusion, there was dense consolidative process of the right lower lobe Plan: Repeat chest x-ray tomorrow C/w levofloxacin to be used on a daily basis for 10 days Continue with Incruse to be used on a daily basis Keep K>4, phosphorus greater than 3, magnesium greater than 2. Continue with incentive spirometry and flutter valve. Pain medication for the right-sided pleuritic chest pain Case discussed with RN at bedside Please note the above document was generated using voice recognition software. It may contain grammatical, syntax or spelling errors.Any formal questions or concerns about the content, text or information contained within the body of this dictation should be directly addressed to the provider for clarification. Admission and Anticipated Discharge Date Admission Date: November 13, 2022 Subjective Patient seen and examined at bedside. No acute distress, no adverse events overnight His diarrhea has significantly improved Still complains of mild pain when he takes deep breath Bringing up clear phlegm no hemoptysis Fair appetite Fevers have subsided. No nausea or vomiting Review of Systems Review of Systems: All systems reviewed & are unremarkable except as noted in Subjective Physical Exam Physical Exam: Constitutional: No acute distress HEENT: EOMI, PERRLA Respiratory system: Decreased air entry right side, positive crackles bilateral lower lobes more on the right side, no wheeze, no rhonchi CVS: S1-S2 positive, no murmurs or gallops Abdomen: Soft, nontender, nondistended, positive bowel sounds x4 Extremities: +2 pulses bilaterally radialis/ dorsalis pedis, no cyanosis, no edema Neuro: Awake alert oriented x3 Psych: Normal mood and affect G/U: No Haynes Skin: no rashes, warm and dry Lymphatic: no cervical or axillary lymphadenopathy Results & Data Results & Data Vital Signs (Past 12 Hours) Vital Signs Temp Pulse Pulse Resp BP Pulse Ox O2 Del Method 11/19/22 08:24 36.7 C 81 17 123/78 92 Room Air 11/19/22 04:00 36.6 C 75 20 128/76 94 Room Air 11/18/22 22:00 102 H 11/19/22 00:00 36.9 C 79 18 128/65 92 Room Air Laboratory Results 11/19/22 06:09 11/19/22 06:09 PG Care Time/CCT Total # of Minutes Spent Total Time Spent with Patient: Total time spent is greater than 50% in coordination of care (as documented) at patient's floor/unit and/or counseling patient: Coding Level of Care Code 59414 SUB INP/OBS CARE 2/35MIN Diagnoses Acute respiratory failure with hypoxia J96.01 Pneumonia J18.9 Sepsis A41.9 Sepsis acute organ dysfunction status: without acute organ dysfunction Sepsis type: sepsis due to unspecified organism COPD with emphysema J43.9 Pleuritic chest pain R07.81
[2022-11-19] MEDS: UMECLIDINIUM BROMIDE 62.5MCG/BLISTER 7 PUFFS/INHALER INH SCH (09:18)
[2022-11-19] MEDS: ADVANCED PROBIOTIC 1250 MG CAPSULE PO SCH (09:18)
[2022-11-19] MEDS: PANTOprazole 40 MG TAB PO SCH (09:18)
[2022-11-19] MEDS: ENOXAPARIN INJ 40 MG/0.4 ML SYR SQ SCH (09:18)
[2022-11-19] MEDS: guaiFENesin 600 MG TABCR PO SCH ×2 (09:18→19:56)
[2022-11-19] MEDS: levoFLOXacin/D5W 750 MG/150 ML BAG IV SCH (13:09)
[2022-11-19] MEDS: IBUPROFEN 800 MG TAB PO PRN (17:14)
--- NOTE | 2022-11-19 18:03 | Hospitalist Progress Note ---
Date of Service November 19, 2022 Assessment & Plan (1) Severe sepsis: Plan: 2/2 multiple infections as noted below. (2) Legionella pneumonia: Plan: Patient presenting from [facility] for evaluation of fever, weakness, nausea/vomit., diarrhea In the ED, febrile 39.5 C, tachycardic 110's, WBC 12.9 K, lactate 2.3. BP normal. CT ABD/pelvis negative for acute abdominal findings however noted right basilar consolidation Blood cultx, urine cultx, sputum cultx - ordered Blood cultx - negat. so far Resp. biofire negative Legionella Ag - Positive -discussed w/ lab , infection control and notified [facility] Stool PCR - negative Change IV Levaquin to oral-great bioavailability and he is tolerating PO (3) Elevated LFTs: Plan: - likely secondary to sepsis, legionella infection - hepatitis panel - negative CT abd./pelvis negative for intraabd.pathology - RUQ US obtained - negative - GI consulted - MRCP and EUS obtained, ERCP was not needed unremarkable aside from lobularity noted to pancreatic tissue. Stomach, biopsy: - Chronic focally active gastritis suspicious for Helicobacter infection - Negative for intestinal metaplasia, dysplasia and malignancy Comment: The morphology is suggestive of Helicobacter and there are rare small foci of questionable staining on the immunostain. Clinical correlation required. Discussed w/ GI - recommend to obtain stool antigen , which was ordered. If positive may need ID consult given already treatment for Legionella. Stool Ag for H pylorir was negative. (4) MARTÍN (acute kidney injury): Plan: MARTÍN 2/2 sepsis-now creat has returned to his baseline of 1.3. Cont to avoid nephrotoxic substances as able. (5) Diarrhea: Plan: resolved (6) Mood disorder: Plan: restart olanzapine and cont to hold trazodone given recent prolonged QTc. Monitor closely for any trazodone withdrawal. DVT ppx- heparin subq Full Code dispo-discharge likely after the weekend Ewa Franco DO [facility] Hospitalist Admission and Anticipated Discharge Date Admission Date: November 13, 2022 Subjective Presented with severe sepsis including GI symptoms, UTI and Legionella pneumonia. Fever and chills resolved overnight Denies other pain Reports the cough medicine made him sick, he does not like And feel Tolerating p.o. and clinically improved Denies any GI symptoms. Review of Systems Review of Systems: All systems were reviewed and negative except as indicated on HPI above. Physical Exam Physical Exam: CONSTITUTIONAL: WNWD, vitals as above, NAD EYES: normal conjunctivae, no scleral icterus ENT: external ear and nose normal, oropharynx clear NECK: trachea midline RESPIRATORY: clear to auscultation bilaterally, no crackles, rales or wheezes, normal respiratory effort CARDIOVASCULAR: regular rate and rhythm, S1 and 2 heard without murmurs, gallops or rubs, no JVD, no peripheral edema CHEST: inspection of chest was normal GASTROINTESTINAL: soft, nontender, ND, no guarding MUSCULOSKELETAL: strength 5/5 throughout, head is normocephalic and atraumatic SKIN: warm and dry NEUROLOGIC: CN 2-12 grossly intact, no sensory deficit, normal cognition, normal speech, no tremor PSYCHIATRIC: alert cooperative and oriented to person, place and time. Results & Data Results & Data Vital Signs (Past 12 Hours) Vital Signs Temp Pulse Resp BP Pulse Ox O2 Del Method 11/19/22 15:56 38.0 C H 85 16 131/77 93 Room Air 11/19/22 11:48 37.1 C 86 17 142/83 H 97 Room Air 11/19/22 08:00 Room Air 11/19/22 08:24 36.7 C 81 17 123/78 92 Room Air Laboratory Results Short CBC 11/19/22 Range/Units 06:09 WBC 10.06 (4.8-10.8) K/ul Hgb 10.0 L (14.0-18.0) g/dl Hct 30.4 L (42.0-52.0) % Plt Count 321 (130-400) K/uL BMP 11/19/22 06:09 Sodium 138 Potassium 4.1 Chloride 108 H Carbon Dioxide 23 BUN 16 Creatinine 1.22 Glucose 93 Calcium 7.6 L Liver Function 11/19/22 Range/Units 06:09 Total Bilirubin 1.0 (0.2-1.0) mg/dl AST 90 H (13-39) U/L ALT 42 (7-52) U/L Alkaline Phosphatase 53 (34-104) U/L Albumin 2.8 L (3.4-5.0) gm/dl Medications Administered Current Inpatient Medications Acetaminophen (Acetaminophen 325 Mg Tab) 650 mg PO Q4H PRN PRN Reason: pain/fever Stop: 12/18/22 17:14 Albuterol (Albut/Ipratrop 3mg/0.5mg Neb 3 Ml Vial) 3 ml NEB Q4R PRN; Protocol PRN Reason: shortness of breath Stop: 12/13/22 19:26 Enoxaparin Sodium (Enoxaparin Inj 40 Mg/0.4 Ml Syr) 40 mg SQ QAM LARA Stop: 12/19/22 08:59 Last Admin: 11/19/22 09:18 Dose: 40 mg Guaifenesin (Guaifenesin 600 Mg Tabcr) 600 mg PO Q12 LARA Stop: 12/13/22 20:59 Last Admin: 11/19/22 09:18 Dose: 600 mg Guaifenesin/Codeine Phosphate (Guaifenesin/Codeine 200mg/20mg 10ml Udc) 10 ml PO Q6H PRN PRN Reason: Cough Stop: 12/18/22 17:14 Last Admin: 11/18/22 20:34 Dose: 10 ml Levofloxacin/Dextrose (Levaquin/D5w) 750 mg in 150 mls @ 100 mls/hr IV Q24H [facility] Stop: 11/29/22 13:59 Last Infusion: 11/19/22 15:17 Dose: Infused Ibuprofen (Ibuprofen 800 Mg Tab) 800 mg PO Q8H PRN PRN Reason: Fever Stop: 12/16/22 16:57 Last Admin: 11/19/22 17:14 Dose: 800 mg Ibuprofen (Ibuprofen 800 Mg Tab) 800 mg PO TID PRN PRN Reason: Pain or Fever Stop: 12/18/22 17:14 Lactobacillus Acidophilus (Advanced Probiotic 1250 Mg Capsule) 2 cap PO DAILY LARA Stop: 12/14/22 17:29 Last Admin: 11/19/22 09:18 Dose: 2 cap Morphine Sulfate (Morphine Sulfate 2 Mg/Ml Carp) 1 mg IV Q4 PRN PRN Reason: Pain Stop: 11/30/22 12:19 Olanzapine (Olanzapine 5 Mg Tablet) 5 mg PO HS [facility] Stop: 12/13/22 20:59 Last Admin: 11/18/22 21:11 Dose: 5 mg Ondansetron HCl (Ondansetron Inj 2 Mg/Ml 2 Ml Vial) 4 mg IV Q6H PRN PRN Reason: Nausea Stop: 12/13/22 19:26 Pantoprazole Sodium (Pantoprazole 40 Mg Tab) 40 mg PO QAM [facility] Stop: 12/19/22 08:59 Last Admin: 11/19/22 09:18 Dose: 40 mg Trazodone HCl (Trazodone Hcl 100 Mg Tab) 100 mg PO HS [facility] Stop: 12/13/22 20:59 Last Admin: 11/16/22 20:51 Dose: 100 mg Umeclidinium [place] (Umeclidinium [place] 62.5mcg/Blister 7 Puffs/Inhaler) 1 puffs INH DAILY [facility] Stop: 12/16/22 08:59 Last Admin: 11/19/22 09:18 Dose: 1 puffs
[2022-11-19] MEDS: OLANZapine 5 MG TABLET PO SCH (19:56)
--- NOTE | 2022-11-20 07:50 | Hospitalist Progress Note ---
Date of Service November 20, 2022 Assessment & Plan (1) Severe sepsis: Plan: 2/2 multiple infections as noted below. (2) Legionella pneumonia: Plan: Patient presenting from [facility] for evaluation of fever, weakness, nausea/vomit., diarrhea In the ED, febrile 39.5 C, tachycardic 110's, WBC 12.9 K, lactate 2.3. BP normal. CT ABD/pelvis negative for acute abdominal findings however noted right basilar consolidation Blood cultx, urine cultx, sputum cultx - ordered Blood cultx - negat. so far Resp. biofire negative Legionella Ag - Positive -discussed w/ lab , infection control and notified [facility] Stool PCR - negative Change IV Levaquin to oral-great bioavailability and he is tolerating PO (3) Elevated LFTs: Plan: - likely secondary to sepsis, legionella infection - hepatitis panel - negative CT abd./pelvis negative for intraabd.pathology - RUQ US obtained - negative (4) MARTÍN (acute kidney injury): Plan: MARTÍN 2/2 sepsis-now creat has returned to his baseline of 1.3. Cont to avoid nephrotoxic substances as able. (5) Diarrhea: Plan: resolved (6) Gastric ulcer: Plan: - GI consulted - MRCP and EUS obtained, ERCP was not needed unremarkable aside from lobularity noted to pancreatic tissue. Stomach, biopsy: - Chronic focally active gastritis suspicious for Helicobacter infection-stool Ag was negative - Negative for intestinal metaplasia, dysplasia and malignancy -cont Protonix 40mg daily for 12 weeks -repeat surveillance endoscopy in 3-4 months (7) Mood disorder: Plan: restart olanzapine and cont to hold trazodone given recent prolonged QTc. QTc resolved on today's EKG. Restarted trazodone at 50mg (50%) given ongoing Levaquin use. DVT ppx- Lovenox Full Code dispo-discharge likely tomorrow if he stays afebile overnight. Ewa Franco DO [facility] Hospitalist Admission and Anticipated Discharge Date Admission Date: November 13, 2022 Subjective Presented with severe sepsis including GI symptoms, UTI and Legionella pneumonia. No diarrhea tolerating PO feels cough improved +fever yesterday afternoon Review of Systems Review of Systems: All systems were reviewed and negative except as indicated on HPI above. Physical Exam Physical Exam: CONSTITUTIONAL: WNWD, vitals as above, NAD EYES: normal conjunctivae, no scleral icterus ENT: external ear and nose normal, oropharynx clear NECK: trachea midline RESPIRATORY: clear to auscultation bilaterally, no crackles, rales or wheezes, normal respiratory effort CARDIOVASCULAR: regular rate and rhythm, S1 and 2 heard without murmurs, gallops or rubs, no JVD, no peripheral edema CHEST: inspection of chest was normal GASTROINTESTINAL: soft, nontender, ND, no guarding MUSCULOSKELETAL: strength 5/5 throughout, head is normocephalic and atraumatic SKIN: warm and dry NEUROLOGIC: CN 2-12 grossly intact, no sensory deficit, normal cognition, normal speech, no tremor PSYCHIATRIC: alert cooperative and oriented to person, place and time. Results & Data Results & Data Vital Signs (Past 12 Hours) Vital Signs Temp Pulse Resp BP Pulse Ox O2 Del Method 11/20/22 07:47 36.7 C 79 19 127/78 95 Room Air 11/20/22 03:00 36.5 C 74 23 131/79 92 Room Air 11/19/22 23:00 36.7 C 75 23 128/84 94 Room Air Medications Administered Current Inpatient Medications Acetaminophen (Acetaminophen 325 Mg Tab) 650 mg PO Q4H PRN PRN Reason: pain/fever Stop: 12/18/22 17:14 Albuterol (Albut/Ipratrop 3mg/0.5mg Neb 3 Ml Vial) 3 ml NEB Q4R PRN; Protocol PRN Reason: shortness of breath Stop: 12/13/22 19:26 Enoxaparin Sodium (Enoxaparin Inj 40 Mg/0.4 Ml Syr) 40 mg SQ QAM LARA Stop: 12/19/22 08:59 Last Admin: 11/19/22 09:18 Dose: 40 mg Guaifenesin (Guaifenesin 600 Mg Tabcr) 600 mg PO Q12 LARA Stop: 12/13/22 20:59 Last Admin: 11/19/22 19:56 Dose: 600 mg Ibuprofen (Ibuprofen 800 Mg Tab) 800 mg PO Q8H PRN PRN Reason: Fever Stop: 12/16/22 16:57 Last Admin: 11/19/22 17:14 Dose: 800 mg Lactobacillus Acidophilus (Advanced Probiotic 1250 Mg Capsule) 2 cap PO DAILY LARA Stop: 12/14/22 17:29 Last Admin: 11/19/22 09:18 Dose: 2 cap Levofloxacin (Levofloxacin 750 Mg Tab) 750 mg PO DAILY@1100 [facility] Stop: 11/29/22 10:59 Morphine Sulfate (Morphine Sulfate 2 Mg/Ml Carp) 1 mg IV Q4 PRN PRN Reason: Pain Stop: 11/30/22 12:19 Olanzapine (Olanzapine 5 Mg Tablet) 5 mg PO HS [facility] Stop: 12/13/22 20:59 Last Admin: 11/19/22 19:56 Dose: 5 mg Ondansetron HCl (Ondansetron Inj 2 Mg/Ml 2 Ml Vial) 4 mg IV Q6H PRN PRN Reason: Nausea Stop: 12/13/22 19:26 Pantoprazole Sodium (Pantoprazole 40 Mg Tab) 40 mg PO QAM [facility] Stop: 12/19/22 08:59 Last Admin: 11/19/22 09:18 Dose: 40 mg Trazodone HCl (Trazodone Hcl 100 Mg Tab) 100 mg PO HS [facility] Stop: 12/13/22 20:59 Last Admin: 11/16/22 20:51 Dose: 100 mg Umeclidinium [place] (Umeclidinium [place] 62.5mcg/Blister 7 Puffs/Inhaler) 1 puffs INH DAILY [facility] Stop: 12/16/22 08:59 Last Admin: 11/19/22 09:18 Dose: 1 puffs
--- NOTE | 2022-11-20 08:11 | XRay Report ---
XR chest 1V portable HISTORY: Follow right lower lobe pneumonia. Shortness of breath. COMPARISON: Chest 11/18/2022. FINDINGS: No pneumothorax. The cardiac silhouette remains mildly enlarged. Right lower lobe airspace opacities and a small right pleural effusion persists. There are few left basilar linear densities no edward. The upper lung zones are clear. IMPRESSION: No significant change in the right lower lobe airspace opacity and small right pleural effusion. ACT 112: Negative or not required by law. Electronically signed by: Vicente Stern M.D. 11/20/2022 8:09 AM
--- NOTE | 2022-11-20 09:23 | Pulmonology Progress Note ---
Date of Service November 20, 2022 Assessment & Plan (1) Acute respiratory failure with hypoxia: (2) Pneumonia: (3) Sepsis: Sepsis acute organ dysfunction status: without acute organ dysfunction Sepsis type: sepsis due to unspecified organism Qualified Code(s): A41.9 - Sepsis, unspecified organism (4) COPD with emphysema: (5) Pleuritic chest pain: Plan CT chest 11/15/2022 personally reviewed: Paraseptal emphysema appreciated bilaterally more on the right side, dense consolidative process appreciated in the right lower lobe with air bronchograms Mediastinal lymphadenopathy especially station 7 -- Right lower lobe pneumonia Urine Legionella positive Patient likely has Legionella pneumonia LFTs were elevated secondary to the above as well Respiratory BioFire negative for everything including COVID-19 PCR Nasal MRSA negative Procalcitonin 3.29 It is not unusual for patient to spike high-grade fever with severe pneumonia. Legionella is usually waterborne/air conditioner/water retainers. I would recommend infectious control to get involved to see if any intervention is needed at the senior living Repeat CT chest in 6 to 8 weeks to follow-up on the right lower lobe consolidative process -- COPD with emphysema Not on any inhalers at home Bedside ultrasound on 11/18/2022 did not show any right-sided pleural effusion, there was dense consolidative process of the right lower lobe Plan: Chest x-ray from today still shows right lower lobe infiltrate, no significant change compared to before C/w levofloxacin to be used on a daily basis for 10-14 days. QTc 408, 11/20/2022 Continue with Incruse on discharge as well Continue with incentive spirometry and flutter valve. Case discussed with RN at bedside and Dr. Franco No further recommendation from pulmonary perspective, will sign off Please call directly with any questions Please note the above document was generated using voice recognition software. It may contain grammatical, syntax or spelling errors.Any formal questions or concerns about the content, text or information contained within the body of this dictation should be directly addressed to the provider for clarification. Admission and Anticipated Discharge Date Admission Date: November 13, 2022 Subjective Patient seen and examined at bedside. No acute distress, no adverse events overnight Overall he says he is feeling better. He has been using incentive spirometry, it still hurts when he takes a very deep breath in but it has decreased in intensity Coughing up clear phlegm. Diarrhea has resolved Fair appetite No nausea or vomiting Review of Systems Review of Systems: All systems reviewed & are unremarkable except as noted in Subjective Physical Exam Physical Exam: Constitutional: No acute distress HEENT: EOMI, PERRLA Respiratory system: Decreased air entry right side, positive crackles bilateral lower lobes more on the right side, no wheeze, no rhonchi CVS: S1-S2 positive, no murmurs or gallops Abdomen: Soft, nontender, nondistended, positive bowel sounds x4 Extremities: +2 pulses bilaterally radialis/ dorsalis pedis, no cyanosis, no edema Neuro: Awake alert oriented x3 Psych: Normal mood and affect G/U: No Haynes Skin: no rashes, warm and dry Lymphatic: no cervical or axillary lymphadenopathy Results & Data Results & Data Vital Signs (Past 12 Hours) Vital Signs Temp Pulse Resp BP Pulse Ox O2 Del Method 11/20/22 07:47 36.7 C 79 19 127/78 95 Room Air 11/20/22 03:00 36.5 C 74 23 131/79 92 Room Air 11/19/22 23:00 36.7 C 75 23 128/84 94 Room Air Laboratory Results 11/19/22 06:09 11/19/22 06:09 PG Care Time/CCT Total # of Minutes Spent Total Time Spent with Patient: Total time spent is greater than 50% in coordination of care (as documented) at patient's floor/unit and/or counseling patient: Coding Level of Care Code 96757 SUB INP/OBS CARE 2/35MIN Diagnoses Acute respiratory failure with hypoxia J96.01 Pneumonia J18.9 Sepsis A41.9 Sepsis acute organ dysfunction status: without acute organ dysfunction Sepsis type: sepsis due to unspecified organism COPD with emphysema J43.9 Pleuritic chest pain R07.81
[2022-11-20] MEDS: guaiFENesin 600 MG TABCR PO SCH ×2 (10:07→20:13)
[2022-11-20] MEDS: ENOXAPARIN INJ 40 MG/0.4 ML SYR SQ SCH (10:07)
[2022-11-20] MEDS: ADVANCED PROBIOTIC 1250 MG CAPSULE PO SCH (10:07)
[2022-11-20] MEDS: IBUPROFEN 800 MG TAB PO PRN (10:08)
[2022-11-20] MEDS: PANTOprazole 40 MG TAB PO SCH (10:08)
[2022-11-20] MEDS: UMECLIDINIUM BROMIDE 62.5MCG/BLISTER 7 PUFFS/INHALER INH SCH (10:08)
[2022-11-20] MEDS: levoFLOXacin 750 MG TAB PO SCH (10:08)
[2022-11-20] MEDS: OLANZapine 5 MG TABLET PO SCH (20:13)
[2022-11-20] MEDS: traZODone HCL 50 MG TAB PO SCH (20:14)
[2022-11-21 05:38] LABS: Hematocrit (blood only) 31.1 % (42.0-52.0); Hemoglobin 10.2 g/dl (14.0-18.0); Mean Corpuscular Hemoglobin 30.9 pg (25.0-34.0); Mean Corpuscular Hgb Conc 32.8 g/dL (32.0-36.0); Mean Corpuscular Volume 94.2 fL (80.0-100.0); Mean Platelet Volume 9.2 fL (9.4-12.4); Platelet Count 472 K/uL (130-400); RDW Coefficient of Variation 13.8 % (11.5-14.5); RDW Standard Deviation 47.5 fL (36.4-46.3); White Blood Count 9.64 K/ul (4.8-10.8)
[2022-11-21 05:48] LABS: BUN Creatinine Ratio 13.8 (10-20); Calcium 7.6 mg/dl (8.6-10.3); Creatinine Clr Calc Pharmacy 106.3 ml/min; Est GFR (African American) 85.2 ml/min; Est GFR (Non-African American) 73.5 ml/min; Potassium 4.5 mmol/L (3.5-5.1)
[2022-11-21] MEDS: ADVANCED PROBIOTIC 1250 MG CAPSULE PO SCH (08:17)
[2022-11-21] MEDS: guaiFENesin 600 MG TABCR PO SCH ×2 (08:17→19:40)
[2022-11-21] MEDS: PANTOprazole 40 MG TAB PO SCH (08:17)
[2022-11-21] MEDS: UMECLIDINIUM BROMIDE 62.5MCG/BLISTER 7 PUFFS/INHALER INH SCH (08:18)
[2022-11-21] MEDS: ENOXAPARIN INJ 40 MG/0.4 ML SYR SQ SCH (08:18)
--- NOTE | 2022-11-21 09:32 | Pulmonology Progress Note ---
Date of Service November 21, 2022 Assessment & Plan (1) Acute respiratory failure with hypoxia: (2) Pneumonia: (3) Sepsis: Sepsis acute organ dysfunction status: without acute organ dysfunction Sepsis type: sepsis due to unspecified organism Qualified Code(s): A41.9 - Sepsis, unspecified organism (4) COPD with emphysema: (5) Pleuritic chest pain: Plan CT chest 11/15/2022 personally reviewed: Paraseptal emphysema appreciated bilaterally more on the right side, dense consolidative process appreciated in the right lower lobe with air bronchograms Mediastinal lymphadenopathy especially station 7 -- Right lower lobe pneumonia Urine Legionella positive Patient likely has Legionella pneumonia LFTs were elevated secondary to the above as well Respiratory BioFire negative for everything including COVID-19 PCR Nasal MRSA negative Procalcitonin 3.29 It is not unusual for patient to spike high-grade fever with severe pneumonia. Legionella is usually waterborne/air conditioner/water retainers. I would recommend infectious control to get involved to see if any intervention is needed at the [facility] Repeat CT chest in 6 to 8 weeks to follow-up on the right lower lobe consolidative process -- COPD with emphysema Not on any inhalers at home Bedside ultrasound on 11/18/2022 did not show any right-sided pleural effusion, there was dense consolidative process of the right lower lobe Plan: C/w levofloxacin to be used on a daily basis for 10-14 days. QTc 408, 11/20/2022 Continue with Incruse on discharge as well Continue with incentive spirometry and flutter valve. Case discussed with RN at bedside No further recommendation from pulmonary perspective, will sign off Please call directly with any questions Please note the above document was generated using voice recognition software. It may contain grammatical, syntax or spelling errors.Any formal questions or concerns about the content, text or information contained within the body of this dictation should be directly addressed to the provider for clarification. Admission and Anticipated Discharge Date Admission Date: November 13, 2022 Subjective Patient seen and examined at bedside. No acute distress Overnight patient oxygen went down to 86% he was put on 2 L nasal cannula. At time of examination he was saturating 97% on 2 L. I went down to 1 L Denies any headache, no nausea, no vomiting Has been using incentive spirometry as well as flutter valve. Denies any hemoptysis No diarrhea Mild chest pain on deep breath on the right side still persist Review of Systems Review of Systems: All systems reviewed & are unremarkable except as noted in Subjective Physical Exam Physical Exam: Constitutional: No acute distress HEENT: EOMI, PERRLA Respiratory system: Decreased air entry right side, positive crackles bilateral lower lobes more on the right side, no wheeze, no rhonchi CVS: S1-S2 positive, no murmurs or gallops Abdomen: Soft, nontender, nondistended, positive bowel sounds x4 Extremities: +2 pulses bilaterally radialis/ dorsalis pedis, no cyanosis, no edema Neuro: Awake alert oriented x3 Psych: Normal mood and affect G/U: No Haynes Skin: no rashes, warm and dry Lymphatic: no cervical or axillary lymphadenopathy Results & Data Results & Data Vital Signs (Past 12 Hours) Vital Signs Temp Pulse Pulse Resp BP Pulse Ox O2 Del Method 11/21/22 07:36 36.9 C 97 H 17 102/67 91 Nasal Cannula 11/21/22 03:00 37.0 C 87 17 136/81 92 Room Air 11/20/22 23:01 84 11/20/22 23:00 36.9 C 93 H 19 132/78 92 Room Air O2 Flow Rate 11/21/22 07:36 2 11/21/22 03:00 11/20/22 23:01 11/20/22 23:00 Laboratory Results 11/21/22 04:45 11/21/22 04:45 PG Care Time/CCT Total # of Minutes Spent Total Time Spent with Patient: Total time spent is greater than 50% in coordination of care (as documented) at patient's floor/unit and/or counseling patient: Coding Level of Care Code 28371 SUB INP/OBS CARE 2/35MIN Diagnoses Acute respiratory failure with hypoxia J96.01 Pneumonia J18.9 Sepsis A41.9 Sepsis acute organ dysfunction status: without acute organ dysfunction Sepsis type: sepsis due to unspecified organism COPD with emphysema J43.9 Pleuritic chest pain R07.81
--- NOTE | 2022-11-21 09:55 | Hospitalist Progress Note ---
Date of Service November 21, 2022 Assessment & Plan (1) Severe sepsis: Plan: 2/2 multiple infections as noted below. (2) Legionella pneumonia: Plan: Patient presenting from [facility] for evaluation of fever, weakness, nausea/vomit., diarrhea In the ED, febrile 39.5 C, tachycardic 110's, WBC 12.9 K, lactate 2.3. BP normal. CT ABD/pelvis negative for acute abdominal findings however noted right basilar consolidation Blood cultx, urine cultx, sputum cultx - ordered Blood cultx - negat. so far Resp. biofire negative Legionella Ag - Positive -discussed w/ lab , infection control and notified [facility] Stool PCR - negative Change IV Levaquin to oral-great bioavailability and he is tolerating PO Last dose 11/27 to complete 14 days. (3) Elevated LFTs: Plan: - likely secondary to sepsis, legionella infection - hepatitis panel - negative CT abd./pelvis negative for intraabd.pathology - RUQ US obtained - negative recheck LFTs as outpatient to ensure complete resolution after infection treated. (4) MARTÍN (acute kidney injury): Plan: MARTÍN 2/2 sepsis-now creat has returned to his baseline of 1.3. Cont to avoid nephrotoxic substances as able. (5) Diarrhea: Plan: resolved (6) Gastric ulcer: Plan: - GI consulted - MRCP and EUS obtained, ERCP was not needed unremarkable aside from lobularity noted to pancreatic tissue. Stomach, biopsy: - Chronic focally active gastritis suspicious for Helicobacter infection-stool Ag was negative - Negative for intestinal metaplasia, dysplasia and malignancy -cont Protonix 40mg daily for 12 weeks -repeat surveillance endoscopy in 3-4 months (7) Mood disorder: Plan: restart olanzapine and cont to hold trazodone given recent prolonged QTc. QTc resolved on today's EKG. Restarted trazodone at 50mg (50%) given ongoing Levaquin use. DVT ppx- Lovenox Full Code dispo-discharge likely tomorrow if he stays afebile overnight and would like to see hypoxia resolve prior to going home also. Ewa Franco DO [facility] Hospitalist Admission and Anticipated Discharge Date Admission Date: November 13, 2022 Subjective Presented with severe sepsis including GI symptoms, UTI and Legionella pneumonia. No diarrhea tolerating PO breathing improved but now appears to be needing more oxygen feels good with respect to breathing and denies pain or fever Review of Systems Review of Systems: All systems were reviewed and negative except as indicated on HPI above. Physical Exam Physical Exam: CONSTITUTIONAL: WNWD, vitals as above, NAD EYES: normal conjunctivae, no scleral icterus ENT: external ear and nose normal, oropharynx clear NECK: trachea midline RESPIRATORY: clear to auscultation bilaterally, no crackles, rales or wheezes, normal respiratory effort CARDIOVASCULAR: regular rate and rhythm, S1 and 2 heard without murmurs, gallops or rubs, no JVD, no peripheral edema CHEST: inspection of chest was normal GASTROINTESTINAL: soft, nontender, ND, no guarding MUSCULOSKELETAL: strength 5/5 throughout, head is normocephalic and atraumatic SKIN: warm and dry NEUROLOGIC: CN 2-12 grossly intact, no sensory deficit, normal cognition, normal speech, no tremor PSYCHIATRIC: alert cooperative and oriented to person, place and time. Results & Data Results & Data Vital Signs (Past 12 Hours) Vital Signs Temp Pulse Pulse Resp BP Pulse Ox O2 Del Method 11/21/22 07:36 36.9 C 97 H 17 102/67 91 Nasal Cannula 11/21/22 03:00 37.0 C 87 17 136/81 92 Room Air 11/20/22 23:01 84 11/20/22 23:00 36.9 C 93 H 19 132/78 92 Room Air O2 Flow Rate 11/21/22 07:36 2 11/21/22 03:00 11/20/22 23:01 11/20/22 23:00 Laboratory Results Short CBC 11/21/22 Range/Units 04:45 WBC 9.64 (4.8-10.8) K/ul Hgb 10.2 L (14.0-18.0) g/dl Hct 31.1 L (42.0-52.0) % Plt Count 472 H (130-400) K/uL BMP 11/21/22 04:45 Sodium 138 Potassium 4.5 Chloride 109 H Carbon Dioxide 23 BUN 16 Creatinine 1.16 Glucose 98 Calcium 7.6 L Medications Administered Current Inpatient Medications Acetaminophen (Acetaminophen 325 Mg Tab) 650 mg PO Q4H PRN PRN Reason: pain/fever Stop: 12/18/22 17:14 Albuterol (Albut/Ipratrop 3mg/0.5mg Neb 3 Ml Vial) 3 ml NEB Q4R PRN; Protocol PRN Reason: shortness of breath Stop: 12/13/22 19:26 Enoxaparin Sodium (Enoxaparin Inj 40 Mg/0.4 Ml Syr) 40 mg SQ QAM [facility] Stop: 12/19/22 08:59 Last Admin: 11/21/22 08:18 Dose: 40 mg Guaifenesin (Guaifenesin 600 Mg Tabcr) 600 mg PO Q12 LARA Stop: 12/13/22 20:59 Last Admin: 11/21/22 08:17 Dose: 600 mg Ibuprofen (Ibuprofen 800 Mg Tab) 800 mg PO Q8H PRN PRN Reason: Fever Stop: 12/16/22 16:57 Last Admin: 11/20/22 10:08 Dose: 800 mg Lactobacillus Acidophilus (Advanced Probiotic 1250 Mg Capsule) 2 cap PO DAILY [facility] Stop: 12/14/22 17:29 Last Admin: 11/21/22 08:17 Dose: 2 cap Levofloxacin (Levofloxacin 750 Mg Tab) 750 mg PO DAILY@1100 [facility] Stop: 11/29/22 10:59 Last Admin: 11/20/22 10:08 Dose: 750 mg Morphine Sulfate (Morphine Sulfate 2 Mg/Ml Carp) 1 mg IV Q4 PRN PRN Reason: Pain Stop: 11/30/22 12:19 Olanzapine (Olanzapine 5 Mg Tablet) 5 mg PO HS [facility] Stop: 12/13/22 20:59 Last Admin: 11/20/22 20:13 Dose: 5 mg Ondansetron HCl (Ondansetron Inj 2 Mg/Ml 2 Ml Vial) 4 mg IV Q6H PRN PRN Reason: Nausea Stop: 12/13/22 19:26 Pantoprazole Sodium (Pantoprazole 40 Mg Tab) 40 mg PO QAM [facility] Stop: 12/19/22 08:59 Last Admin: 11/21/22 08:17 Dose: 40 mg Trazodone HCl (Trazodone Hcl 50 Mg Tab) 50 mg PO HS [facility] Stop: 12/20/22 20:59 Last Admin: 11/20/22 20:14 Dose: 50 mg Umeclidinium Clyman (Umeclidinium Clyman 62.5mcg/Blister 7 Puffs/Inhaler) 1 puffs INH DAILY [facility] Stop: 12/16/22 08:59 Last Admin: 11/21/22 08:18 Dose: 1 puffs
--- NOTE | 2022-11-21 10:21 | Electrocardiogram Report ---
Test Reason : Blood Pressure : / mmHG Vent. Rate : 082 BPM Atrial Rate : 082 BPM P-R Int : 164 ms QRS Dur : 086 ms QT Int : 350 ms P-R-T Axes : 050 055 035 degrees QTc Int : 408 ms Poor data quality, interpretation may be adversely affected Normal sinus rhythm RSR' or QR pattern in V1 suggests right ventricular conduction delay Nonspecific T wave abnormality Abnormal ECG When compared with ECG of 18-NOV-2022 04:08, No significant change was found Confirmed by Kaushik Linares ([id number]) on 11/21/2022 10:21:12 AM Referred By: [facility] Confirmed By:Kaushik Linares
[2022-11-21] MEDS: levoFLOXacin 750 MG TAB PO SCH (11:09)
[2022-11-21] MEDS: OLANZapine 5 MG TABLET PO SCH (19:40)
[2022-11-21] MEDS: traZODone HCL 50 MG TAB PO SCH (22:24)
[2022-11-22] MEDS: ADVANCED PROBIOTIC 1250 MG CAPSULE PO SCH (08:13)
[2022-11-22] MEDS: PANTOprazole 40 MG TAB PO SCH (08:14)
[2022-11-22] MEDS: ENOXAPARIN INJ 40 MG/0.4 ML SYR SQ SCH (08:14)
[2022-11-22] MEDS: guaiFENesin 600 MG TABCR PO SCH (08:14)
[2022-11-22] MEDS: UMECLIDINIUM BROMIDE 62.5MCG/BLISTER 7 PUFFS/INHALER INH SCH (08:15)
--- NOTE | 2022-11-22 10:21 | Discharge Summary ---
Discharge Summary Date of Service November 22, 2022 Notes For Next Care Provider Repeat chest imaging in 4-6 weeks recommended to ensure complete resolution of pneumonia. Medication Changes From Visit NEW Incruse Ellipta 1 inhaled ideation daily NEW Levofloxacin 750 mg p.o. daily NEW Pantoprazole 40 mg p.o. every morning. Admission HPI Per Admitting Provider History obtained from patient and review of records sent from [facility]. 47-year-old male inmate from [facility] with PMH mood disorder and other problems listed below who presents to the ED for evaluation of fever, weakness, urinary symptoms. Patient reports he started to get sick about 3 days ago. He reports urinary frequency and urgency, nausea with 2 episodes of vomiting, diarrhea, dry mouth, lightheadedness, dizziness. Patient also reports chills and rigors. [facility] and was referred to the ED for further evaluation. Patient denies cough and sputum production. No chest pain or shortness of breath. In the ED, patient was febrile 39.5, tachycardic, WBC 12.9 K, lactate 2.3. BP stable. UA suggestive of possible UTI. CT ABD/pelvis unremarkable for acute abdominal findings however does note right basilar consolidation. Patient was given IV Tylenol, IV cefepime, ibuprofen, magnesium replacement, IVF. Admission Exam Per Admitting Provider Constitutional: WD/WN, vitals as above + ill appearing; no acute distress Eyes: PERRL, conjunctivae normal, anicteric sclerae ENMT: external ear and nose normal, oropharynx normal Respiratory: normal respiratory effort; no respiratory distress Auscultation: + rales (Right base) Cardiovascular: Rate/Rhythm: regular rhythm and + tachycardic Vessels: normal peripheral pulses Extremities: no edema Gastrointestinal (Abdomen): Inspection/Auscultation: + abdomen distended and normal bowel sounds Percussion/Palpation: abdomen soft; abdomen nontender and no hepatosplenomegaly Musculoskeletal: no cyanosis or clubbing, extremities motor strength 5/5 Skin: no rashes, warm and dry Neurologic: PERRL, EOMI, accommodation nl, no face palsy, no dysarthria Psychiatric: A+Ox3, euthymic affect Principal Dx & Hospital Course #1 = Principal Diagnosis (1) Severe sepsis: 2/2 multiple infections as noted below. (2) Legionella pneumonia: (3) Elevated LFTs: (4) MARTÍN (acute kidney injury): (5) Diarrhea: resolved (6) Gastric ulcer: (7) Mood disorder: Plan 47-year-old man presented with severe sepsis secondary to Legionella pneumonia. He was originally placed on IV Zosyn. Elevated LFTs were noted thought secondary to sepsis. Acute kidney injury was present with a creatinine of 1.6. Hypokalemia and hypomagnesia were present and were fixed. He had some diarrhea which was negative for infection and resolved shortly after admission. Work-up for elevated liver enzymes included a gastroenterology consult he subsequently underwent an EGD revealing normal esophagus with nonobstructing nonbleeding gastric ulcers with no stigmata of bleeding that were biopsied. Duodenum was normal. An endoscopic ultrasound was then performed. This was notable for a normal-appearing common bile duct and gallbladder. PPI was recommended for 12 weeks with a repeat upper endoscopy in 3 to 4 months. Pulmonology was consulted and the patient was changed to levofloxacin for treatment of Legionella pneumonia. Pulmonary toilet efforts were continued including incentive spirometer and flutter valve respiratory bio fire was negative including COVID- 19 PCR. A nasal MRSA swab was negative. He did continue to spike elevated fevers each afternoon but was afebrile greater than 48 hours prior to discharge. He continued to improve and was placed on Incruse Ellipta therapy at discharge. Stomach biopsy returned prior to discharge revealing chronic focally active gastritis suspicious for helical back to her pylori infection however stool antigen was negative. Biopsy was also negative for intestinal metaplasia, dysplasia or malignancy.. LFTs returned to normal prior to discharge. Creatinine improved to 1.16 at time of discharge. He was discharged in stable condition with close primary care follow-up recommended. Discharge Exam CONSTITUTIONAL: WNWD, vitals as above, NAD EYES: normal conjunctivae, no scleral icterus ENT: external ear and nose normal, oropharynx clear NECK: trachea midline RESPIRATORY: clear to auscultation bilaterally, no crackles, rales or wheezes, normal respiratory effort CARDIOVASCULAR: regular rate and rhythm, S1 and 2 heard without murmurs, gallops or rubs, no JVD, no peripheral edema CHEST: inspection of chest was normal GASTROINTESTINAL: soft, nontender, ND, no guarding MUSCULOSKELETAL: strength 5/5 throughout, head is normocephalic and atraumatic SKIN: warm and dry NEUROLOGIC: CN 2-12 grossly intact, no sensory deficit, normal cognition, normal speech, no tremor PSYCHIATRIC: alert cooperative and oriented to person, place and time. Updated Medication List Medication Instructions Recorded Confirmed Type olanzapine 5 mg tablet 5 mg PO HS 11/13/22 11/13/22 History trazodone 100 mg tablet 100 mg PO HS 11/13/22 11/13/22 History levofloxacin 750 mg tablet 750 mg PO DAILY@1100 #7 tabs 11/22/22 Rx pantoprazole 40 mg tablet,delayed 40 mg PO QAM #30 tabs 11/22/22 Rx release umeclidinium 62.5 mcg/actuation 1 inh inhalation DAILY #30 ea 11/22/22 Rx blister powder for inhalation (Incruse Ellipta) Hospital Stay Data Consultations 11/13/22 17:47 ED Decision to Admit Stat 11/14/22 17:31 Consult Gastroenterology Routine 11/15/22 13:04 Consult Pulmonology Routine Procedures Performed Operation Date: 11/15/22 11:40 Actual Procedures p Endoscopic Ultrasonography Upper(Not Applicable) - Donaldo Lema, Diagnostic Imagining Performed 11/13/22 15:17 CT abd pelvis wo con Stat 11/14/22 09:38 US gallbladder Urgent 11/15/22 08:52 MRI MRCP [MR MRCP] Routine 11/15/22 13:20 CT chest diagnostic wo con Urgent 11/15/22 14:21 US upper EUS PACS images Routine 11/18/22 08:42 US point of care ultrasound Urgent Pending Results Patient Have Any Pending Studies at Discharge: No Discharge Instructions Given to Patient (Per Discharging Provider) Please take all medications as instructed on discharge list below. You have been placed on a once daily inhaler called Incruse Ellipta. Please continue this once daily. You have been continued on Levaquin antibiotic once daily with the last dose taken 11/27/22. This gives you a total two weeks of antibiotics to treat your lung infection. It is recommended that you undergo a repeat chest CT in 6-8 weeks to ensure complete resolution of pneumonia. You underwent an upper endoscopy revealing gastric ulcers. Please avoid NSAIDs such as Motrin and continue the once daily Protonix. A repeat EGD is recommended in 8-12 weeks for surveillance. It was a pleasure taking care of you! Please call if you have any questions or problems. You can reach a [facility] hospitalist on duty at [facility] 24 hours a day by calling [phone]. Take care of yourself. Ewa Franco DO [facility] Hospitalist Total Time Total Time Spent Total Time Spent (In Minutes): 60
[2022-11-22] MEDS: levoFLOXacin 750 MG TAB PO SCH (11:51)
--- NOTE | 2022-11-22 12:38 | Pulmonology Progress Note ---
Date of Service November 22, 2022 Assessment & Plan (1) Acute respiratory failure with hypoxia: (2) Pneumonia: (3) Sepsis: Sepsis acute organ dysfunction status: without acute organ dysfunction Sepsis type: sepsis due to unspecified organism Qualified Code(s): A41.9 - Sepsis, unspecified organism (4) COPD with emphysema: (5) Pleuritic chest pain: Plan CT chest 11/15/2022 personally reviewed: Paraseptal emphysema appreciated bilaterally more on the right side, dense consolidative process appreciated in the right lower lobe with air bronchograms Mediastinal lymphadenopathy especially station 7 -- Right lower lobe pneumonia Urine Legionella positive Patient likely has Legionella pneumonia LFTs were elevated secondary to the above as well Respiratory BioFire negative for everything including COVID-19 PCR Nasal MRSA negative Procalcitonin 3.29 It is not unusual for patient to spike high-grade fever with severe pneumonia. Legionella is usually waterborne/air conditioner/water retainers. I would recommend infectious control to get involved to see if any intervention is needed at the halfway Repeat CT chest in 6 to 8 weeks to follow-up on the right lower lobe consolidative process -- COPD with emphysema Not on any inhalers at home Bedside ultrasound on 11/18/2022 did not show any right-sided pleural effusion, there was dense consolidative process of the right lower lobe Plan: Chest x-ray from today shows minimal improvement compared to the one done 11/20/2022 C/w levofloxacin to be used on a daily basis for 10-14 days. QTc 408, 11/20/2022 Continue with Incruse on discharge as well Continue with incentive spirometry and flutter valve. Case discussed with RN at bedside as well as Dr. Franco No further recommendation from pulmonary perspective, will sign off Please call directly with any questions Please note the above document was generated using voice recognition software. It may contain grammatical, syntax or spelling errors.Any formal questions or concerns about the content, text or information contained within the body of t his dictation should be directly addressed to the provider for clarification. Admission and Anticipated Discharge Date Admission Date: November 13, 2022 Subjective Patient seen and examined at bedside. No acute distress, no adverse events overnight Patient was saturating 89% on room air. On asking him to take deep breaths it went up to 94% Still complains of pain on taking deep breaths No more diarrhea Good appetite Has been afebrile Review of Systems Review of Systems: All systems reviewed & are unremarkable except as noted in Subjective Physical Exam Physical Exam: Constitutional: No acute distress HEENT: EOMI, PERRLA Respiratory system: Decreased air entry right side, positive crackles bilateral lower lobes more on the right side, no wheeze, no rhonchi CVS: S1-S2 positive, no murmurs or gallops Abdomen: Soft, nontender, nondistended, positive bowel sounds x4 Extremities: +2 pulses bilaterally radialis/ dorsalis pedis, no cyanosis, no edema Neuro: Awake alert oriented x3 Psych: Normal mood and affect G/U: No Haynes Skin: no rashes, warm and dry Lymphatic: no cervical or axillary lymphadenopathy Results & Data Results & Data Vital Signs (Past 12 Hours) Vital Signs Temp Pulse Pulse Resp BP BP Pulse Ox 11/22/22 12:10 36.8 C 77 18 114/75 91 11/22/22 08:41 11/22/22 07:02 36.8 C 71 16 121/76 95 11/22/22 07:30 65 11/22/22 03:00 36.5 C 98 H 21 101/53 L 98 O2 Del Method O2 Flow Rate 11/22/22 12:10 Room Air 11/22/22 08:41 Nasal Cannula 4 11/22/22 07:02 Nasal Cannula 4 11/22/22 07:30 11/22/22 03:00 Nasal Cannula Laboratory Results 11/21/22 04:45 11/21/22 04:45 PG Care Time/CCT Total # of Minutes Spent Total Time Spent with Patient: Total time spent is greater than 50% in coordination of care (as documented) at patient's floor/unit and/or counseling patient: Coding Level of Care Code 41584 SUB INP/OBS CARE 2/35MIN Diagnoses Acute respiratory failure with hypoxia J96.01 Pneumonia J18.9 Sepsis A41.9 Sepsis acute organ dysfunction status: without acute organ dysfunction Sepsis type: sepsis due to unspecified organism COPD with emphysema J43.9 Pleuritic chest pain R07.81
--- NOTE | 2022-11-22 13:29 | XRay Report ---
XR chest 1V portable CLINICAL HISTORY: f/u TECHNIQUE: Single frontal radiograph of the chest was obtained. Comparison: Comparison is made to chest radiograph 11/20/2022 FINDINGS: No lines and tubes are seen. Cardiomegaly is noted. Bilateral lower lung predominant airspace opaciti es are seen. Small right pleural effusion. IMPRESSION: Bilateral lower lung predominant airspace opacities which may represent atelectasis, pneumonia, and/o r aspiration. Small right pleural effusion. This is essentially unchanged from prior exam. ACT 112: Negative or not required by law. Electronically signed by: Evaristo Smith M.D. 11/22/2022 1:28 PM
== END 2022-11-22 16:39 | DRG 871 ==
LOC: ED 13:21 → 4W 17:52 → SUATTDRO 17:52 → 4W 18:54